=== PATIENT | female | born 1990 | race Caucasian/White ===

== ENCOUNTER 2018-01-02 19:37 | Emergency (ER) | payer SELFPAY ==
--- NOTE | 2018-01-02 19:43 | NUR.NOTE ---
Nursing Note: Patient decided to try and make it better at home.
== END 2018-01-02 19:43 ==
DX: Z53.21 Procedure and treatment not carried out due to patient leaving prior to being seen by health care provider (principal)

== ENCOUNTER 2018-01-27 17:55 | Observation (INO) | payer MEDICAID, SELFPAY ==
[2018-01-27 17:46] VITALS: BP 111/77; PULSE 103; RESP 18; TEMP 36.3; O2SAT 101
--- NOTE | 2018-01-27 18:11 | DI.CT_ITS ---
SYMPTOMS/DIAGNOSIS: RLQ ABD PAIN CT SCAN OF THE ABDOMEN AND PELVIS: CT scan of the abdomen and pelvis was performed following the uneventful administration of intravenous contrast material. There are no priors for comparison. In the right lung base there is a noncalcified 0.6 cm pulmonary nodule. The liver is normal in size. No hepatic mass is seen. The portal and superior mesenteric veins are patent. The gallbladder is negative. No biliary ductal dilatation is seen. The pancreas, spleen and adrenal glands are unremarkable. The kidneys show normal and symmetric enhancement. No solid renal mass, obstruction or calculus is seen. The urinary bladder is intact. Note is made of an intrauterine device in good position. The reproductive organs are otherwise unremarkable. The bowel shows no evidence of obstruction or inflammation. There is a normal retrocecal appendix present. There is a moderately large amount of retained stool throughout the colon. The abdominal aorta is of normal caliber. No significant adenopathy, free air or ascites is present. The bones are intact. IMPRESSION: 1. Moderately large amount of retained stool. 2. 0.6 cm noncalcified right pulmonary nodule. The finding is nonspecific follow up as clinically appropriate.
[2018-01-27 18:19] LABS: Abs Immature Grans 0.03 k/cumm (0.0-0.09); Absolute Basophil Count 0.01 k/cumm (0.0-0.2); Absolute Lymphocyte Count 3.12 k/cumm (1.2-3.4); Absolute Monocyte Count 0.74 k/cumm (0.11-0.7); Absolute Neutrophil Count 4.78 k/cumm (1.2-6.7); Basophils % 0.1; HCT 33.5 % (36.0-46.0); HGB 11.1 g/dL (12.0-15.5); Immature Grans % 0.3; Lymphocytes % 35.9; Mean Corp. HGB Concentration 33.1 g/dL (32.0-36.0); Mean Corpuscular Hemoglobin 27.7 pg (27.0-33.0); Mean Corpuscular Volume 83.5 fL (80-95); Mean Platelet Volume 8.5 fL (8.0-11.0); Monocytes % 8.5; Neutrophils % 55.2; Platelet Count 338 x1000/uL (130-400); RBC 4.01 m/cumm (4.00-5.20); RBC Distribution Width 15.8 % (11.7-14.6); White Blood Cell Count 8.68 k/cumm (4.4-10.8)
[2018-01-27] MEDS: Normal Saline 1,000 ML 1000 ML IV (18:23)
[2018-01-27 18:25] LABS: Bilirubin Negative (Negative); Blood Negative (Negative); Clarity Clear; Glucose Negative (Negative); Ketones Trace mg/dL (Negative); Leukocyte Esterase Trace (Negative); Nitrite Negative (Negative); Specific Gravity 1.025 (1.005-1.025); Urobilinogen 0.2 EU/dL (Up TO 0.2)
[2018-01-27 18:30] LABS: *AMPHETAMINES SCREEN URINE Negative (Negative); *BARBITURATES SCREEN URINE Negative (Negative); *BENZODIAZEPINES SCREEN URINE Negative (Negative); Cannabinoids THC Negative (Negative); Cocaine Screen,Urine Negative (Negative); METHADONE URINE SCREEN Negative (Negative); OPIATES URINE SCREEN Negative (Negative)
[2018-01-27 18:34] LABS: Tricyclic Antidepressants POSITIVE (Negative)
[2018-01-27 18:42] LABS: ALT 16 U/L (12-78); AST 15 U/L (15-37); Albumin 3.5 g/dL (3.4-5.0); Alkaline Phosphatase 89 U/L (46-116); Anion Gap 12.6 mmol/L (3-11); BUN 12 mg/dL (7-18); Bilirubin, Total 0.2 mg/dL (0.2-1.0); CO2 22.4 mmol/L (21.0-32.0); CREATININE 0.98 mg/dL (0.55-1.02); Calcium 8.9 mg/dL (8.5-10.1); Chloride 106 mmol/L (98-107); Glucose 93 mg/dL (70-100); Potassium 3.3 mmol/L (3.5-5.1); Sodium 141 mmol/L (136-145); TSH 3.44 uIU/mL (0.358-3.74); Total Protein 6.8 g/dL (6.4-8.2)
[2018-01-27 18:43] LABS: Epithelial Cells Many HPF (Negative); RBC 0-2 (0-2); WBC 0-2 HPF (0-5)
[2018-01-27 18:44] LABS: Bacteria Many HPF (Negative); C & S Indicated? No/Sq. Contamination; Casts Negative LPF (Negative); Crystals Negative HPF (Negative); Mucus Negative (Negative); Other Cells Rare Renal (Negative)
[2018-01-27] MEDS: Omnipaque 350 MG/ML 100 ML BTL IJ (19:26)
--- NOTE | 2018-01-27 19:50 | DI.VRAD_ITS ---
EXAM: CT Abdomen and Pelvis With Intravenous Contrast CLINICAL HISTORY: 27 years old, female; Pain; Abdominal pain; Localized; Right lower quadrant (rlq); Patient HX: Rlq abd pain TECHNIQUE: Axial computed tomography images of the abdomen and pelvis with intravenous contrast. Coronal and sagittal reformatted images were created and reviewed. COMPARISON: No relevant prior studies available. FINDINGS: Lung bases: Unremarkable. No mass. No consolidation. ABDOMEN: Liver: Unremarkable. No mass. Gallbladder and bile ducts: Unremarkable. No calcified stones. No ductal dilation. Pancreas: Unremarkable. No mass. No ductal dilation. Spleen: Unremarkable. No splenomegaly. Adrenals: Unremarkable. No mass. Kidneys and ureters: Unremarkable. No solid mass. No hydronephrosis. Stomach and bowel: Moderate fecal retention. No obstruction. No mucosal thickening. PELVIS: Appendix: No findings to suggest acute appendicitis. Bladder: Unremarkable. No mass. Reproductive: IUD in uterus. ABDOMEN and PELVIS: Intraperitoneal space: Unremarkable. No free air. No significant fluid collection. Bones/joints: No acute fracture. No dislocation. Soft tissues: Unremarkable. Vasculature: Unremarkable. No abdominal aortic aneurysm. Lymph nodes: Unremarkable. No enlarged lymph nodes. IMPRESSION: Moderate fecal retention. Dictated and Authenticated by: Rosendo Aparicio MD. Ordering:KAY PAGAN MD
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
[2018-01-27] MEDS: Ibuprofen 600 MG TAB PO (20:03)
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
[2018-01-27] MEDS: Milk of Magnesia 30 ML CUP PO (20:35)
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
--- NOTE | 2018-01-27 20:59 | NUR.NOTE ---
Nursing Note: 1899 - CPSO arrived to sit with patient who happens to be male. I talked with patient privately to verify that she is willing to have CPSO sit with her as long as he is outside room and not alone with her at time. Reassured patient that I am still available and will also be checking with her frequently to verify that she feels comfortable.
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
[2018-01-27] MEDS: Topiramate 100 MG TAB 125 MG PO (21:45)
[2018-01-27] MEDS: OXcarbazepine 150 MG TAB 450 MG PO (21:45)
[2018-01-27] MEDS: Benztropine 1 MG TAB PO (21:45)
[2018-01-27] MEDS: Verapamil 80 MG TAB 40 MG PO (21:45)
[2018-01-27] MEDS: Cyproheptadine 4 MG TAB 12 MG PO (21:46)
[2018-01-27] MEDS: traZODone 100 MG TAB 150 MG PO (21:46)
[2018-01-27] MEDS: Benzocaine 20% Gel 30 GM JAR MM (21:46)
[2018-01-27] MEDS: QUEtiapine 100 MG TAB PO (21:46)
[2018-01-27] MEDS: guanFACINE 1 MG TAB PO (21:46)
--- NOTE | 2018-01-27 21:55 | NUR.NOTE ---
Addendum entered by Ginny Romero 01/28/18 07:14: Pt resting with eyes closed in bed. No changes. CPSO 1:1 direct observation. Original Note: Addendum entered by Ginny Romero 01/28/18 05:59: No changes, pt remains resting with eyes closed. RR even and unlabored at a rate of approx 14, making own positional changes. CPSO remains 1:1 direct observation. Original Note: Addendum entered by Ginny Romero 01/28/18 05:05: pt remains resting in bed with eyes closed. CPSO remains 1:1 direct observation. Original Note: Addendum entered by Ginny Romero 01/28/18 02:19: CPSO remains at bedside 1:1 direct observation. Pt continues to rest in bed with eyes closed. RR even and unlabored. Original Note: Addendum entered by Ginny Romero 01/28/18 00:09: Pt continues to rest in bed with eyes closed, appears to be sleeping. Making own positional changes. RR even and unlabored at an approx rate of 12. Good color. CPSO remains 1:1 direct observation. Original Note: Addendum entered by Ginny Romero 01/27/18 22:59: Pt resting in bed with eyes closed, appears to be sleeping. Change of CPSO. Original Note: Nursing Note: Pt quiet and cooperative, in room resting on bed. Given night medication per orders, all taken willingly. CPSO continues 1:1 direct observation. Pt given warm blanket and had PO fluids replenished. Needs met at this time per pt report. Will continue to monitor. Has drawing crayons at bedside for use. Cell phone (black, flip) placed into pt's belongings as the pt's guardian states the cell phone use tends to escalate pt's behavior. Pt agrees to this willingly.
--- NOTE | 2018-01-28 07:23 | NUR.NOTE ---
Assumed care of patient at this time. Sitter remains at bedside, pt VSS, denies needs or distress at this time. Nursing Note:
--- NOTE | 2018-01-28 08:30 | NUR.NOTE ---
Ordered meal tray for patient at this time. Nursing Note:
--- NOTE | 2018-01-28 09:44 | PDOC.MHCN ---
Date of service: 01/28/18 Time of Service: 09:46 Mental Health Crisis Note Presenting Issue How did you arrive at the ED and why did you come: Patient initially arrived at the emergency department via [facility] for thoughts of suicide and acts of self harm (cutting). Precipitating Factors Patient states that she is still having suicidal ideation and thoughts of self harm. Disposition BEHAVIOR: Patient states that she is making a card for her fathers grave. She states that her father a year and five months ago. EYE CONTACT: Patient made intermittent eye contact with this tag writer. MOOD: Calm and cooperative AFFECT: Flat APPETITE: Good SLEEP(trouble falling/staying asleep: Good Plan Patient will remain at the hospital on a voluntary status until a bed becomes available at a mental health treatment facility. A referral was sent to [facility] yesterday but they state today that they are not taking any admissions. All other facilities are full at this time. Signature Clinician's Name/Title: Elayne Carpenter - [facility] Emergency Clinician
--- NOTE | 2018-01-28 09:55 | PDOC.MHCN_ITS ---
Date of service: 01/28/18 Time of Service: 09:46 Mental Health Crisis Note Presenting Issue How did you arrive at the ED and why did you come: Patient initially arrived at the emergency department via [facility] for thoughts of suicide and acts of self harm (cutting). Precipitating Factors Patient states that she is still having suicidal ideation and thoughts of self harm. Disposition BEHAVIOR: Patient states that she is making a card for her fathers grave. She states that her father a year and five months ago. EYE CONTACT: Patient made intermittent eye contact with this scientific technical writer. MOOD: Calm and cooperative AFFECT: Flat APPETITE: Good SLEEP(trouble falling/staying asleep: Good Plan Patient will remain at the hospital on a voluntary status until a bed becomes available at a mental health treatment facility. A referral was sent to [facility] yesterday but they state today that they are not taking any admissions. All other facilities are full at this time. Signature Clinician's Name/Title: Elayne Carpenter - [facility] Emergency Clinician
[2018-01-28] MEDS: Ondansetron O.D.T. 4 MG TABEF ×2 (10:09→17:01)
[2018-01-28] MEDS: traZODone 100 MG TAB 150 MG PO ×2 (11:43→21:18)
[2018-01-28] MEDS: OXcarbazepine 150 MG TAB 450 MG PO ×2 (11:43→20:33)
[2018-01-28] MEDS: SUMAtriptan 50 MG TAB 100 MG PO (11:43)
[2018-01-28] MEDS: Topiramate 100 MG TAB PO ×2 (11:43→20:32)
[2018-01-28] MEDS: Haloperidol 5 MG TAB PO (11:43)
[2018-01-28] MEDS: QUEtiapine 50 MG TAB 100 MG PO (11:43)
[2018-01-28] MEDS: Verapamil 80 MG TAB 40 MG PO (11:44)
--- NOTE | 2018-01-28 14:10 | CMPROGNOTE_ITS ---
- If Service Date Differs Date of service: 01/28/18 Time of Service: 14:08 Care Management Progress Note Care Management Progress Note Brief Narrative : Mary is being admitted to the Med/Surg unit while she awaits placement at a psychiatric facility. Mary has been appropriate in the emergency department. CM contacted Mary's guardian Candace whom states that the first choice of facility would be [facility] and second choice would be [facility] if there are options tomorrow. VOLUNTARY FOR INPATIENT PSYCHIATRIC STABILIZATION. Current behaviors: Mary has been cooperative and appropriate in all interactions since arriving at [facility] ; she has demonstrated appropriate coping and communication skills, has articulated her needs and concerns and is fully engaged during staff interactions. Huddle Participants: Nubia Archuleta, RN Field Education Coordinator, CARMELLA Churchill, and this CM. Time and Date: 01/28/18 @ 1400 Safety plan has been established with patient, and care team, to adhere to patient goals, identify restrictions based on behavioral status, address nutrition, and determine allowed personal belongings, tools for hygiene and personal care. Determine level of activity including ambulation, level of supervision, visitors, and determine privileges based on behaviors and level of engagement by pt. SAFETY PLAN: 1. Will remain on suicide precautions and in paper clothes. 2. Will remain in room under direct supervision of one-on-one staff at all times provided by CESAR, JAVY prison classification counselor. 3. May have paper cups, plates, finger foods as well as a metal spoon with which to eat meals. [facility] staff will be responsible for accounting of utensils after meals. Soft foods please as Mary recently had teeth removed 4. Follow [facility] Management of the Admitted Behavioral Health Patient policy. 5. Comfort bath system only. 6. No personal belongings 7. Visitors - Candace Romero (Guardian) 8. Activities - Mary will be provided crayons and paper as this is therapeutic for her. 9. TV privileges - Mary may watch TV and have remote. Placement: Elayne [facility], states that [facility], [facility], [facility], and [facility] have reported no beds this evening. [facility] is receptive to a referral which has been faxed. Patient is currently voluntarily at [facility] and seeking inpatient admission when a bed becomes available. [facility] Frontline Media Center Director School will continue seeking placement. Please contact the Field Consultant Finish Machine Tender ([phone]) and [facility] Media Center Director School ([phone]) for any needed changes in the Safety Plan. Safety plan has been provided to interdepartmental care team including Clinical Coordinator, Nursing Field Education Coordinator.
[2018-01-28 15:29] VITALS: BP 138/80; PULSE 88; RESP 18; TEMP 36.8; O2SAT 99
[2018-01-28 15:40] VITALS: BP 100/70; PULSE 88; RESP 18; TEMP 36.2; O2SAT 97
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
[2018-01-28] MEDS: Calcium Carbonate *TUMS* 500 MG CHEW PO (17:01)
[2018-01-28 17:24] VITALS: RESP 20; RESP 7; O2SAT 96
[2018-01-28] MEDS: Albuterol/Ipratropium 3 ML UPD VIAL UPD (17:24)
[2018-01-28] MEDS: Acetaminophen 325 MG TAB 650 MG PO (20:26)
[2018-01-28] MEDS: QUEtiapine 100 MG TAB PO (20:27)
[2018-01-28] MEDS: Docusate Sodium 100 MG CAP PO (20:28)
[2018-01-28] MEDS: Omega-3 Fatty Acids 1000 MG CAP PO (20:28)
[2018-01-28] MEDS: Topiramate 100 MG TAB 125 MG PO (20:33)
[2018-01-28] MEDS: Budesonide/Formoterol 80/4.5 6.9 GM 60 PUFF INH IH (20:34)
[2018-01-28] MEDS: Benzocaine 20% Gel 30 GM JAR MM ×2 (20:36→21:19)
[2018-01-28] MEDS: Cyproheptadine 4 MG TAB PO (21:19)
[2018-01-28] MEDS: Benztropine 1 MG TAB PO (21:19)
[2018-01-28] MEDS: traZODone 50 MG TAB 150 MG PO (22:14)
[2018-01-28] MEDS: Milk of Magnesia 30 ML CUP PO (22:26)
[2018-01-28 23:59] VITALS: RESP 16
[2018-01-29 00:16] VITALS: BP 106/68; PULSE 79; RESP 16; TEMP 36.6; O2SAT 94
[2018-01-29 03:12] VITALS: RESP 18
[2018-01-29 07:35] VITALS: BP 112/74; PULSE 72; RESP 20; TEMP 36.7; O2SAT 98
[2018-01-29 07:45] VITALS: O2SAT 95
[2018-01-29] MEDS: Budesonide/Formoterol 80/4.5 6.9 GM 60 PUFF INH IH ×2 (07:45→19:33)
[2018-01-29] MEDS: Haloperidol 5 MG TAB PO (09:07)
[2018-01-29] MEDS: Omega-3 Fatty Acids 1000 MG CAP PO ×2 (09:07→19:34)
[2018-01-29] MEDS: Verapamil 80 MG TAB 40 MG PO (09:07)
[2018-01-29] MEDS: Docusate Sodium 100 MG CAP PO ×2 (09:07→19:34)
[2018-01-29] MEDS: QUEtiapine 100 MG TAB PO ×2 (09:07→19:34)
[2018-01-29] MEDS: DULoxetine 30 MG CAP PO (09:07)
[2018-01-29] MEDS: OXcarbazepine 150 MG TAB 450 MG PO ×2 (09:07→19:33)
[2018-01-29] MEDS: guanFACINE 1 MG TAB 2 MG PO (09:07)
[2018-01-29] MEDS: Magnesium Oxide 400 MG TAB PO (09:07)
[2018-01-29] MEDS: Omeprazole 20 MG CAPCR PO (09:08)
[2018-01-29] MEDS: Calcium Carbonate *TUMS* 500 MG CHEW PO (09:43)
[2018-01-29] MEDS: Polyethylene Glycol 3350 17 GM PACKET PO (09:43)
[2018-01-29] MEDS: Nicotine 21 MG/24 HR PATCH TD (09:43)
--- NOTE | 2018-01-29 10:17 | PDOC.CMIN ---
- If Service Date Differs Date of service: 01/29/18 Time of Service: 10:17 Care Management Initial Assess REASON FOR HOSPITALIZATION:: Depression & Suicidal Ideation PAST MEDICAL HISTORY/PAST SURGICAL HISTORY:: Depression, Diabetes type 2. Per Guardian: Borderline Personality Disorder PREVIOUS FUNCTIONAL STATUS/SOCIAL/FAMILY SUPPORTS:: Mary resides at a staffed apartment in [place] which is staffed by the [facility]. Mary's father 1.5 years ago, her mother is living, however Mary does not have much of a relationship with her. Mary has a public guardian and a therapy team whom are her primary supports. CURRENT FUNCTIONAL STATUS:: Currently Mary is lying in bed this morning. She ambulates in her room throughout the day. ADVANCE DIRECTIVES:: None on file Has patient been provided with information about the portal?: No Did the patient sign up for the portal?: No CODE STATUS:: Full Code INSURANCE COVERAGE / FINANCIAL ISSUES:: Medicaid CURRENT HOME/COMMUNITY SERVICES/EQUIPMENT:: Currently Mary receives therapy services through [facility]. Mary receives therapy 1x/week, was seeing a somatic therapist in [place] which is about to restart, Receives AVE therapy which is planned to start daily on Monday, and has acupuncture 2x/week. PRIMARY CARE PHYSICIAN:: Dr. Coyle POTENTIAL DISCHARGE NEEDS:: Psychiatric facility placement. PATIENT/FAMILY EDUCATION NEEDS:: Review DC instructions, any limitations, and ongoing DC planning discussion. Discuss 'Ask Me Three' ANTICIPATED BARRIERS TO DISCHARGE:: None identified at this time. TRANSPORTATION:: Via gantry rigger PLAN:: [facility] is currently seeking placement at a psychiatric facility. As of yesterday 01/28/18 no facilities had beds. has a call out to [facility] in regards to placement search. Mary will remain at [facility] until psychiatric placement can be found.
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
--- NOTE | 2018-01-29 10:48 | INITIAL_ITS ---
- If Service Date Differs Date of service: 01/29/18 Time of Service: 10:17 Care Management Initial Assess REASON FOR HOSPITALIZATION:: Depression & Suicidal Ideation PAST MEDICAL HISTORY/PAST SURGICAL HISTORY:: Depression, Diabetes type 2. Per Guardian: Borderline Personality Disorder PREVIOUS FUNCTIONAL STATUS/SOCIAL/FAMILY SUPPORTS:: Mary resides at a staffed apartment in [place] which is staffed by the [facility]. Mary' s father 1.5 years ago, her mother is living, however Mary does not have much of a relationship with her. Mary has a public guardian and a therapy team whom are her primary supports. CURRENT FUNCTIONAL STATUS:: Currently Mary is lying in bed this morning. She ambulates in her room throughout the day. ADVANCE DIRECTIVES:: None on file Has patient been provided with information about the portal?: No Did the patient sign up for the portal?: No CODE STATUS:: Full Code INSURANCE COVERAGE / FINANCIAL ISSUES:: Medicaid CURRENT HOME/COMMUNITY SERVICES/EQUIPMENT:: Currently Mary receives therapy services through [facility]. Mary receives therapy 1x/week, was seeing a somatic therapist in [place] which is about to restart, Receives AVE therapy which is planned to start daily on Monday, and has acupuncture 2x/ week. PRIMARY CARE PHYSICIAN:: Dr. Coyle POTENTIAL DISCHARGE NEEDS:: Psychiatric facility placement. PATIENT/FAMILY EDUCATION NEEDS:: Review DC instructions, any limitations, and ongoing DC planning discussion. Discuss 'Ask Me Three' ANTICIPATED BARRIERS TO DISCHARGE:: None identified at this time. TRANSPORTATION:: Via production control expert PLAN:: [facility] is currently seeking placement at a psychiatric facility. As of yesterday 01/28/18 no facilities had beds. has a call out to [facility] in regards to placement search. Mary will remain at [facility] until psychiatric placement can be found.
--- NOTE | 2018-01-29 12:31 | PDOC.CMPRO ---
- If Service Date Differs Date of service: 01/29/18 Time of Service: 12:31 Care Management Progress Note Brief Narrative : Mary is admitted to the Med/Surg unit while she awaits placement at a psychiatric facility. Per CARMELLA Churchill, Mary seems much more lethargic today. Ponce, pathology secretary, obtained Mary's home medication list which the provider is reviewing. CM spoke with Elayne [facility], whom states that she will be in this afternoon to evaluate patient. VOLUNTARY FOR INPATIENT PSYCHIATRIC STABILIZATION. Current behaviors: Mary has been cooperative and appropriate in all interactions since arriving at [facility]; she has demonstrated appropriate coping and communication skills, has articulated her needs and concerns and is fully engaged during staff interactions. Huddle Participants: CARMELLA Cuhrchill, CARMELLA Arellano CC, and this MELANY. Time and Date: 01/29/18 @ 1230 Safety plan has been established with patient, and care team, to adhere to patient goals, identify restrictions based on behavioral status, address nutrition, and determine allowed personal belongings, tools for hygiene and personal care. Determine level of activity including ambulation, level of supervision, visitors, and determine privileges based on behaviors and level of engagement by pt. SAFETY PLAN: 1. Will remain on suicide precautions and in paper clothes. 2. Will remain in room under direct supervision of one-on-one staff at all times provided by JAVY GUERRERO rubbish collector. 3. May have paper cups, plates, finger foods as well as a metal spoon with which to eat meals. [facility] staff will be responsible for accounting of utensils after meals. Soft foods please as Mary recently had teeth removed 4. Follow [facility] Management of the Admitted Behavioral Health Patient policy. 5. Comfort bath system only. 6. No personal belongings 7. Visitors - Candace Romero (Guardian) 8. Activities - Mary will be provided crayons and paper as this is therapeutic for her. 9. TV privileges - Mary may watch TV and have remote. Placement: CM has faxed referrals to [facility] Patient is currently voluntarily at [facility] and seeking inpatient admission when a bed becomes available. [facility] Frontline Hoop Expander will continue seeking placement. Please contact the Copy Director Human Resource Consultant ([phone]) and [facility] Hoop Expander ([phone]) for any needed changes in the Safety Plan. Safety plan has been provided to interdepartmental care team including Clinical Coordinator, Nursing Digital Media Manager.
--- NOTE | 2018-01-29 12:35 | PHARADMIT ---
Admission Pharmacy Clinical Review Suicidal Plan Code Status Full Code Current Weight Wgt- 95.3 kg Renally Cleared and Narrow Therapeutic Index Meds CrCl~88.5 mL/min Meds-OK QTc Value / Action Taken NA BP Control, Fever BP- 112/74 Tmax- 36.7C Electrolytes reviewed Na-141 K+3.3 DVT Prophylaxis Heparin, Opiate Usage / Scheduled Bowel Regimen Ordered No Yes Plt/SCr for Heparin / Enoxaparin Plts-338 SCr-0.98 INR for Warfarin H/H stable, WBC/Bands H&H- 11.1/33.5 WBC- 8.68 Antibiotic appropriateness NONE Cultures and Sensitivities NONE Surgical ABX d/c within 24 hr NA DM control / Insulin Dosing BG-93 Aspart Heart Failure (Check EF%) (AIDEN's, B-Block, Diuretics) NONE IV to PO Switch No Home Meds Reviewed Yes (PatOwn- Clozapine, Riboflavin ) Home Meds Not Ordered Metformin, EpiPen, Flonase, XOpenex HFA, MagOx, Comments Urine screen + TCA
--- NOTE | 2018-01-29 14:21 | CMPROGNOTE_ITS ---
- If Service Date Differs Date of service: 01/29/18 Time of Service: 12:31 Care Management Progress Note Brief Narrative : Mary is admitted to the Med/Surg unit while she awaits placement at a psychiatric facility. Per CARMELLA Churchill, Mary seems much more lethargic today. Ponce, maintenance man, obtained Mary's home medication list which the provider is reviewing. CM spoke with Elayne [facility], whom states that she will be in this afternoon to evaluate patient. VOLUNTARY FOR INPATIENT PSYCHIATRIC STABILIZATION. Current behaviors: Mary has been cooperative and appropriate in all interactions since arriving at [facility] ; she has demonstrated appropriate coping and communication skills, has articulated her needs and concerns and is fully engaged during staff interactions. Huddle Participants: CARMELLA Churchill, CARMELLA Arellano CC, and this MELANY. Time and Date: @ 1230 Safety plan has been established with patient, and care team, to adhere to patient goals, identify restrictions based on behavioral status, address nutrition, and determine allowed personal belongings, tools for hygiene and personal care. Determine level of activity including ambulation, level of supervision, visitors, and determine privileges based on behaviors and level of engagement by pt. SAFETY PLAN: 1. Will remain on suicide precautions and in paper clothes. 2. Will remain in room under direct supervision of one-on-one staff at all times provided by JAVY GUERRERO asphalt plant worker. 3. May have paper cups, plates, finger foods as well as a metal spoon with which to eat meals. [facility] staff will be responsible for accounting of utensils after meals. Soft foods please as Mary recently had teeth removed 4. Follow [facility] Management of the Admitted Behavioral Health Patient policy. 5. Comfort bath system only. 6. No personal belongings 7. Visitors - Candace Romero (Guardian) 8. Activities - Mary will be provided crayons and paper as this is therapeutic for her. 9. TV privileges - Mary may watch TV and have remote. Placement: CM has faxed referrals to [facility] [place] Patient is currently voluntarily at [facility] and seeking inpatient admission when a bed becomes available. [facility] Frontline Project Geophysicist will continue seeking placement. Please contact the Conservation Officer Screw Down ([phone]) and [facility] Project Geophysicist ([phone]) for any needed changes in the Safety Plan. Safety plan has been provided to interdepartmental care team including Clinical Coordinator, Nursing Medical Research Associate.
[2018-01-29] MEDS: Acetaminophen 325 MG TAB 650 MG PO ×2 (14:30→19:34)
--- NOTE | 2018-01-29 15:05 | W.INMHPGNOTE ---
Date of service: 01/29/18 Time of Service: 15:05 Mental Health Crisis Note Presenting Issue How did you arrive at the ED and why did you come: Patient initially arrived at the Emergency Department via [place] for thoughts of suicide and thoughts of self harm. Precipitating Factors Patient states that there has been no change to her thoughts. She states that she still has suicidal ideation and thoughts of self harm (cutting). Disposition BEHAVIOR: When this journalists and other writers arrived the patient was standing in the doorway with a distant blank stare EYE CONTACT: intermittent MOOD: Calm and cooperative AFFECT: Flat APPETITE: Good SLEEP(trouble falling/staying asleep: Patient states that she has been more tired than normal and has been sleeping more throughout the day. Plan Patient will remain at the hospital on a voluntary status until accepted into an appropriate mental health treatment facility. Referrals sent to [facility] [place] and [facility] [place] today. Signature Clinician's Name/Title: Elayne Carpenter - [facility] Emergency Clinician
--- NOTE | 2018-01-29 15:13 | MHPN_ITS ---
Date of service: 01/29/18 Time of Service: 15:05 Mental Health Crisis Note Presenting Issue How did you arrive at the ED and why did you come: Patient initially arrived at the Emergency Department via [place] for thoughts of suicide and thoughts of self harm. Precipitating Factors Patient states that there has been no change to her thoughts. She states that she still has suicidal ideation and thoughts of self harm (cutting). Disposition BEHAVIOR: When this fiction and nonfiction prose writer arrived the patient was standing in the doorway with a distant blank stare EYE CONTACT: intermittent MOOD: Calm and cooperative AFFECT: Flat APPETITE: Good SLEEP(trouble falling/staying asleep: Patient states that she has been more tired than normal and has been sleeping more throughout the day. Plan Patient will remain at the hospital on a voluntary status until accepted into an appropriate mental health treatment facility. Referrals sent to [facility] [place] [place] and [facility] [place] today. Signature Clinician's Name/Title: Elayne Carpenter - [facility] Emergency Clinician
[2018-01-29 15:51] VITALS: BP 113/74; PULSE 95; RESP 20; TEMP 36.7; O2SAT 96
[2018-01-29] MEDS: Benzocaine 20% Gel 30 GM JAR MM (18:02)
[2018-01-29] MEDS: Milk of Magnesia 30 ML CUP PO (18:07)
[2018-01-29] MEDS: Albuterol/Ipratropium 3 ML UPD VIAL UPD (18:14)
[2018-01-29] MEDS: Topiramate 25 MG TAB PO (19:33)
[2018-01-29] MEDS: Topiramate 100 MG TAB PO (19:33)
[2018-01-29] MEDS: Cyproheptadine 4 MG TAB 12 MG PO (22:32)
[2018-01-29] MEDS: Benztropine 1 MG TAB PO (22:33)
[2018-01-30 06:40] VITALS: BP 97/76; PULSE 87; RESP 18; TEMP 37; O2SAT 94
[2018-01-30 07:25] VITALS: BP 104/76; PULSE 91; RESP 18; TEMP 37; O2SAT 93
[2018-01-30] MEDS: Polyethylene Glycol 3350 17 GM PACKET PO (08:48)
[2018-01-30] MEDS: Nicotine 21 MG/24 HR PATCH TD (08:49)
[2018-01-30] MEDS: Omeprazole 20 MG CAPCR PO (08:51)
[2018-01-30] MEDS: guanFACINE 1 MG TAB 2 MG PO (08:52)
[2018-01-30] MEDS: OXcarbazepine 150 MG TAB 450 MG PO (08:53)
[2018-01-30] MEDS: DULoxetine 30 MG CAP PO (08:54)
[2018-01-30] MEDS: Topiramate 100 MG TAB PO (08:54)
[2018-01-30] MEDS: Topiramate 25 MG TAB PO (08:54)
[2018-01-30] MEDS: Magnesium Oxide 400 MG TAB PO (08:55)
[2018-01-30] MEDS: Docusate Sodium 100 MG CAP PO (08:55)
[2018-01-30] MEDS: QUEtiapine 100 MG TAB PO (08:55)
[2018-01-30] MEDS: Haloperidol 5 MG TAB PO (08:55)
[2018-01-30] MEDS: Omega-3 Fatty Acids 1000 MG CAP PO (08:56)
[2018-01-30] MEDS: Budesonide/Formoterol 80/4.5 6.9 GM 60 PUFF INH IH (09:47)
[2018-01-30 09:51] VITALS: BP 115/78; PULSE 103; TEMP 36.6
[2018-01-30] MEDS: Verapamil 80 MG TAB 40 MG PO (09:52)
[2018-01-30] MEDS: Insulin Aspart 300 UNITS/3 ML PEN SC (12:53)
[2018-01-30 13:37] VITALS: PULSE 90; RESP 18; O2SAT 95
[2018-01-30] MEDS: Albuterol/Ipratropium 3 ML UPD VIAL UPD (13:37)
[2018-01-30] MEDS: Acetaminophen 325 MG TAB 650 MG PO (16:06)
[2018-01-30] MEDS: Benzocaine 20% Gel 30 GM JAR MM (16:07)
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
[2018-01-30] MEDS: Potassium Chloride 20 MEQ TABCR 40 MEQ PO (17:10)
--- NOTE | 2018-01-30 17:45 | PDOC.CMDIS ---
- If Service Date Differs Date of service: 01/30/18 Time of Service: 17:46 LACE Index Scoring Tool - Questions: Length of Stay (in days): 3 Acuity (Admit via E.D.?): Yes E.D. Visits: 2 - Answers: Total Score: 8 Risk of Readmission: Low Risk Care Management Discharge Reason for Hospitalization: Depression & Suicidal Ideation Discharge Plan: Mary is being discharged to [facility] [place]. CM contacted the Guardian Clarita Romero and provided update including contact information for . CM contacted admissions at and provided guardian's fax and contact information. Mary is looking forward to transfer she knows well and has been there in the past. CM coordinated transportation via [employer]. CM will fax CM notes to to provide update and contacts for Mary's support team. Accepting MD at is . CM faxed discharge information to guardian. Patient/Family Education Needs: Transfer education and mode of transportation. Services Needed at Discharge: Psychiatric Facility (Transported to [facility] [place] ) - MH Services (Omit if N/A) Current MH Services: [facility] Referred to Internal [facility] (ED embedded) family service caseworker?: Yes
== END 2018-01-30 17:28 | disposition short-term general hospital (02) ==
LOC: ER 01-28 11:42 → MS 01-28 15:38
PROVIDERS: Nurse Practitioner Family; Admitting Provider Internal Medicine; Emergency Provider Student in an Organized Health Care Education/Training Program; PCP Internal Medicine; Visit Provider Internal Medicine
DX: F32.9 Major depressive disorder, single episode, unspecified (principal); R45.851 Suicidal ideations; E11.9 Type 2 diabetes mellitus without complications; E66.9 Obesity, unspecified; K59.00 Constipation, unspecified; Z91.410 Personal history of adult physical and sexual abuse; F43.10 Post-traumatic stress disorder, unspecified; R44.1 Visual hallucinations; F17.210 Nicotine dependence, cigarettes, uncomplicated
CPT/HCPCS: 36415; 80053; 80307; 81025; 82947; 94640; 96361; 99223; 99233; 99239; 99285; 74177; 81003; 81015; 84443; 85025; 99217; 99220; 99284; G0378; J1644; J3490; J7620

== ENCOUNTER 2018-02-20 20:25 | Emergency (ER) | payer MEDICAID, SELFPAY ==
[2018-02-20 20:28] VITALS: BP 115/68; PULSE 96; RESP 20; TEMP 36.3; O2SAT 100
--- NOTE | 2018-02-20 20:48 | W.ED.GENAD ---
Discharge Plan Disposition Patient Disposition: [facility] Condition: Stable Discharge Details Chief Complaint: PsychEval Clinical Impression: Mood disorder, Depression with suicidal ideation Reason For Visit: JOANA Primary Care Provider: Judie Coyle ED Provider: Rosalinda Willis Home Meds and New Rx's Prescriptions: No Action clozapine [Clozaril] 100 mg Tablet 175 mg PO HS RF: 0 clozapine [Clozaril] 100 mg Tablet 100 mg PO TID RF: 0 riboflavin (vitamin B2) [Vitamin B-2] 100 mg Tablet 400 mg PO DAILY RF: 0 sumatriptan succinate 100 mg Tablet 100 mg PO ONCE PRNRF: 0 metformin [Glucophage] 850 mg Tablet 850 mg PO BID RF: 0 oxcarbazepine [Trileptal] 300 mg Tablet 450 mg PO BID RF: 0 quetiapine [Seroquel] 100 mg Tablet 100 mg PO BID RF: 0 cyproheptadine 4 mg Tablet 4 mg PO HS RF: 0 trazodone 150 mg Tablet 150 mg PO DAILY RF: 0 guanfacine 1 mg Tablet 2 mg PO DAILY RF: 0 omeprazole 20 mg Capsule,Delayed Release(Dr/Ec) 20 mg PO DAILY RF: 0 magnesium 250 mg Tablet 400 mg PO DAILY RF: 0 epinephrine [EpiPen 2-Evans] 0.3 mg/0.3 mL Auto-Injector RF: 0 ondansetron 4 mg Tablet,Disintegrating 4 mg PO TID PRNRF: 0 topiramate [Topamax] 100 mg Tablet 125 mg PO BID RF: 0 fluticasone 50 mcg/actuation [place],Suspension 1 spray INTRANASAL DAILY RF: 0 docusate sodium 100 mg Tablet 100 mg PO BID RF: 0 duloxetine [Cymbalta] 30 mg Capsule,Delayed Release(Dr/Ec) 30 mg PO DAILY RF: 0 budesonide-formoterol [Symbicort] 80-4.5 mcg/actuation Hfa Aerosol Inhaler 2 puff INHALATION BID RF: 0 cholecalciferol (vitamin D3) [Vitamin D3] 5,000 unit Tablet 5,000 unit PO DAILY RF: 0 omega 4-ado-lcw-fish oil [Fish Oil] 1,000 mg (120 mg-180 mg) Capsule 1,000 mg PO BID RF: 0 acetaminophen [Tylenol] 325 mg Tablet 650 mg PO Q4H PRN PRNQty: 0 RF: 0 magnesium hydroxide [Milk of Magnesia] 400 mg/5 mL Suspension 30 ml PO DAILY PRN PRNQty: 0 RF: 0 calcium carbonate 200 mg calcium (500 mg) Tablet,Chewable 500 mg PO QID PRN PRNQty: 0 RF: 0 nicotine 21 mg/24 hr Patch 24 Hour 21 mg Transdermal DAILY PRN PRNQty: 0 RF: 0 benzocaine [HurriCaine] 20 % Gel Mucous Membrane Q4H PRN PRNQty: 0 RF: 0 levalbuterol tartrate [Xopenex HFA] 45 mcg/actuation Hfa Aerosol Inhaler 1 puff INHALATION Q6H PRN (Reason: shortness of breath or wheezing) Qty: 0 RF: 0 polyethylene glycol 3350 [Miralax] 17 gram powder in packet 17 gm PO DAILY PRN (Reason: constipation) Qty: 1 RF: 0 bupropion HCl [Wellbutrin SR] 150 mg Tablet Sustained-Release 12 Hr 150 mg PO DAILY RF: 0 doxycycline hyclate 100 mg Capsule 100 mg PO BID RF: 0 sumatriptan succinate [Imitrex] 100 mg Tablet 100 mg PO ONCE PRNRF: 0 meloxicam 7.5 mg Tablet 1 dose PO DAILY PRNRF: 0 bisacodyl 5 mg Tablet,Delayed Release (Dr/Ec) 10 mg PO DAILY RF: 0 Medical Decision Making <Richard Marcano MD - Last Filed: 02/21/18 05:56> 27-year-old female with chronic mental health problems presents via EMS after becoming suicidal and playing in traffic. She states that she has worsening mood disruption around the time of the holidays as it reminds her of the of her father. She states that medically she has been well with the exception of some persistent burning in itching discomfort in her vaginal area since being treated for an infection . A medical screening examination performed including chaperoned vaginal exam. She has evidence of candidal vaginitis. She is taking Doxycycline and presumptively was treated for PID. Records requested from [facility] as the patient was admitted there at the end of January. One-to-one sitter ordered Screening laboratories obtained with urinalysis. Patient given fluconazole 100 mg p.o. x1 for yeast infection. Patient medically stable for further evaluation by psychiatry. Patient's daily medications ordered, Clozaril unavailable and will use patient's own. She is taking PO without difficulty. Patient awaits voluntary placement to inpatient facility. She has tentative bed placement at [facility] and is awaiting transfer in the morning hours of February 21. Will sign out to Dr Willis pending final disposition. Lab Data Lab results reviewed: Yes I reviewed the patient's lab results. Laboratory Results - last 24 hr 02/20/18 02/20/18 02/20/18 20:45 20:45 20:47 WBC RBC Hgb Hct MCV MCH MCHC RDW Plt Count MPV Immature Gran % Neutrophils % Lymphocytes % Monocytes % Eosinophils % Basophils % Absolute Neutrophils Absolute Lymphocytes Absolute Monocytes Absolute Eosinophils Absolute Basophils Sodium 142 Potassium 3.4 L Chloride 108 H Carbon Dioxide 21.1 Anion Gap 12.9 H BUN 11 Creatinine 0.93 Estimated GFR/1.73 m2 >= 60.00 Glucose 91 Calcium 9.1 Total Bilirubin 0.2 AST 7 L ALT 17 Alkaline Phosphatase 89 Total Protein 7.5 Albumin 3.9 Urine Color Yellow Urine Clarity Clear Urine pH 6.0 Ur Specific [place] >= 1.030 H Urine Protein Trace H Urine Ketones 15 H Urine Blood Negative Urine Nitrite Negative Urine Bilirubin Small H Urine Urobilinogen 0.2 Ur Leukocyte Esterase Negative Urine RBC Negative Urine WBC Negative Ur Epithelial Cells Many Urine Crystals Mod calcium oxalate Urine Bacteria Few Urine Casts Negative Urine Mucus Moderate Ur Culture Indicated? No Urine Glucose 100 Urine Opiates Screen Negative Urine Methadone Screen Negative Ur Barbiturates Screen Negative Ur Tricyclics Screen Positive Clozapine Clozapine &Norclozapine Norclozapine Ur Amphetamines Screen Negative U Benzodiazepines Scrn Negative Urine Cocaine Screen Negative Ur THC Screen Negative Ethyl Alcohol < 3.0 02/20/18 02/20/18 20:47 21:07 WBC 8.77 RBC 4.15 Hgb 11.5 L Hct 35.1 L MCV 84.6 MCH 27.7 MCHC 32.8 RDW 17.1 H Plt Count 301 MPV 8.8 Immature Gran % 0.6 Neutrophils % 59.0 Lymphocytes % 33.0 Monocytes % 7.4 Eosinophils % 0.0 Basophils % 0.0 Absolute Neutrophils 5.18 Absolute Lymphocytes 2.89 Absolute Monocytes 0.65 Absolute Eosinophils 0.00 Absolute Basophils 0.00 Sodium Potassium Chloride Carbon Dioxide Anion Gap BUN Creatinine Estimated GFR/1.73 m2 Glucose Calcium Total Bilirubin AST ALT Alkaline Phosphatase Total Protein Albumin Urine Color Urine Clarity Urine pH Ur Specific [place] Urine Protein Urine Ketones Urine Blood Urine Nitrite Urine Bilirubin Urine Urobilinogen Ur Leukocyte Esterase Urine RBC Urine WBC Ur Epithelial Cells Urine Crystals Urine Bacteria Urine Casts Urine Mucus Ur Culture Indicated? Urine Glucose Urine Opiates Screen Urine Methadone Screen Ur Barbiturates Screen Ur Tricyclics Screen Clozapine Cancelled Clozapine &Norclozapine Cancelled Norclozapine Cancelled Ur Amphetamines Screen U Benzodiazepines Scrn Urine Cocaine Screen Ur THC Screen Ethyl Alcohol <Rosalinda Willis DO - Last Filed: 02/21/18 17:58> Please see Dr. Marcano's note for initial presentation, exam and plan. Pt is a 27yo F w/ a h/o depression who presents after becoming suicidal and playing in traffic. She is voluntary and was medically cleared. She was recently treated for possible PID and is still taking doxycycline of which was continued here along with her regular meds. She was also given clotrimazole cream here for a candidal vaginitis. GC/Chlamydia cultures done on this ED visit and pending. No acute events overnight. Plan upon endorsement was that pt has a bed at [facility] and waiting for doc to doc report at 8am. 0830 -- D/w [facility] - accepting physician Dr. Cheung. 11am -- Cheesemaker taking to pt to [facility]. Vitals within normal limits. HPI <Richard Marcano MD - Last Filed: 02/21/18 05:56> General Mode of arrival: EMS. Date/Time Provider Initiated Documentation: 02/20/18 20:55. Limitations to Documentation: no limitations. Information obtained by: patient and EMS. History of Present Illness 27 year old F presents to the emergency department with the chief complaint of Mental health crisis, suicidal, described as severe, Patient started experiencing this hour(s) No relieving factors improve symptom(s), Other factors that worsen symptoms . Patient notes other (Complains of burning and itching vaginal discomfort). HPI Narrative: 27-year-old female presents from the [facility] where she has been staying with a home provider since being released from [facility]. She states to me that her father at this time of year and the holidays are hard for me. She states that she became suicidal with thoughts of being run over by a car was standing in traffic. EMS was called, patient stated that she felt unsafe and was transported to the hospital. States to me that while [place] [facility] she was discontinued on her Haldol. States when she was recently treated for a vaginal infection and that she has persistent burning and itching. No other medical complaints Related Data Home Medications Medication Instructions Recorded Confirmed budesonide-formoterol [Symbicort] 2 puff INHALATION BID 01/27/18 02/20/18 cholecalciferol (vitamin D3) 5,000 unit PO DAILY 01/27/18 02/20/18 [Vitamin D3] clozapine [Clozaril] 100 mg PO TID 01/27/18 02/20/18 clozapine [Clozaril] 175 mg PO HS 01/27/18 02/20/18 cyproheptadine 4 mg PO HS 01/27/18 02/20/18 docusate sodium 100 mg PO BID 01/27/18 02/20/18 duloxetine [Cymbalta] 30 mg PO DAILY 01/27/18 02/20/18 epinephrine [EpiPen 2-Evans] 01/27/18 fluticasone 1 spray INTRANASAL DAILY 01/27/18 02/20/18 guanfacine 2 mg PO DAILY 01/27/18 02/20/18 magnesium 400 mg PO DAILY 01/27/18 02/20/18 metformin [Glucophage] 850 mg PO BID 01/27/18 02/20/18 omega 3-ecd-ehe-fish oil [Fish Oil] 1,000 mg PO BID 01/27/18 02/20/18 omeprazole 20 mg PO DAILY 01/27/18 02/20/18 ondansetron 4 mg PO TID PRN 01/27/18 02/20/18 oxcarbazepine [Trileptal] 450 mg PO BID 01/27/18 02/20/18 quetiapine [Seroquel] 100 mg PO BID 01/27/18 02/20/18 riboflavin (vitamin B2) [Vitamin 400 mg PO DAILY 01/27/18 02/20/18 B-2] sumatriptan succinate 100 mg PO ONCE PRN 01/27/18 02/20/18 topiramate [Topamax] 125 mg PO BID 01/27/18 02/20/18 trazodone 150 mg PO DAILY 01/27/18 02/20/18 acetaminophen [Tylenol] 650 mg PO Q4H PRN PRN #0 tab 01/30/18 02/20/18 benzocaine [HurriCaine] 0 g MUCOUS MEMBRANE Q4H PRN PRN #0 01/30/18 02/20/18 g calcium carbonate 500 mg PO QID PRN PRN #0 tab 01/30/18 02/20/18 levalbuterol tartrate [Xopenex HFA] 1 puff INHALATION Q6H PRN #0 g 01/30/18 02/20/18 magnesium hydroxide [Milk of 30 ml PO DAILY PRN PRN #0 ml 01/30/18 02/20/18 Magnesia] nicotine 21 mg TRANSDERMAL DAILY PRN PRN #0 01/30/18 02/20/18 ea polyethylene glycol 3350 [Miralax] 17 gm PO DAILY PRN #1 each 01/30/18 02/20/18 bisacodyl 10 mg PO DAILY 02/20/18 02/20/18 bupropion HCl [Wellbutrin SR] 150 mg PO DAILY 02/20/18 02/20/18 doxycycline hyclate 100 mg PO BID 02/20/18 02/20/18 meloxicam 1 dose PO DAILY PRN 02/20/18 02/20/18 sumatriptan succinate [Imitrex] 100 mg PO ONCE PRN 02/20/18 02/20/18 Previous Rx's Medication Instructions Recorded acetaminophen [Tylenol] 650 mg PO Q4H PRN PRN #0 tab 01/30/18 benzocaine [HurriCaine] 0 g MUCOUS MEMBRANE Q4H PRN PRN #0 01/30/18 g calcium carbonate 500 mg PO QID PRN PRN #0 tab 01/30/18 levalbuterol tartrate [Xopenex HFA] 1 puff INHALATION Q6H PRN #0 g 01/30/18 magnesium hydroxide [Milk of 30 ml PO DAILY PRN PRN #0 ml 01/30/18 Magnesia] nicotine 21 mg TRANSDERMAL DAILY PRN PRN #0 01/30/18 ea polyethylene glycol 3350 [Miralax] 17 gm PO DAILY PRN #1 each 01/30/18 Allergies Allergy/AdvReac Type Severity Reaction Status Date / Time bee pollen AdvReac Unverified 01/27/18 17:49 bee venom protein (honey bee) AdvReac Unverified 01/27/18 17:49 General Stated Complaint: PsychEval ISH: 2 Review of Systems <Richard Marcano MD - Last Filed: 02/21/18 05:56> Review of Systems 8 systems reviewed and otherwise - Exam <Richard Marcano MD - Last Filed: 02/21/18 05:56> Narrative Exam Narrative: GEN: awake, alert, oriented 3. Pleasant, well groomed, interactive. HEAD: Normocephalic, atraumatic ENT: Mucous membranes moist, oropharynx unremarkable, External ear exam unremarkable EYES: PERRL, EOMI NECK: Full ROM, no KOBE, no menigismus CHEST/RESP: Nontender, clear to auscultation bilateral, no wheeze/rhonchi/rales CARDIOVASCULAR: RRR, no murmur, rub amrit. 2+ Rad pulse bilateral ABDOMEN: Soft, nontender, no mass. +Bowel sounds. The vaginal introitus has beefy red erythema and white discharge. No tenderness. No asymmetry. Speculum exam unremarkable EXT: Full ROM, no edema, no rash Neuro: Grossly normal neurologic exam, conversant, interactive. Psych: Speech fluent, thoughts congruent, affect flat, voices and suicidal thoughts without plan Course <Richard Marcano MD - Last Filed: 02/21/18 05:56> Vital Signs Temperature 36.3 C L 02/20/18 20:28 Pulse 96 H 02/20/18 20:28 Respiratory Rate 20 02/20/18 20:28 Blood Pressure 115/68 02/20/18 20:28 Pulse Oximetry 100 02/20/18 20:28 Temperature 36.3 C L 02/20/18 20:28 Temperature Source Skin 02/20/18 20:28 Pulse 96 H 02/20/18 20:28 Respiratory Rate 20 02/20/18 20:28 Blood Pressure 115/68 02/20/18 20:28 Blood Pressure Position Sitting 02/20/18 20:28 Pulse Oximetry 100 02/20/18 20:28 Comment 02/20/18 20:28 Sign Out <Richard Marcano MD - Last Filed: 02/21/18 05:56> Sign Out Data: Sign Out Comment: Accepted to [facility], Doc-Doc call after 8am Last updated by Richard Marcano MD at 02/21/18 07:41
--- NOTE | 2018-02-20 20:55 | ED.GENADUL_ITS ---
Discharge Plan Disposition Patient [facility] Condition: Stable Discharge Details Chief Complaint: PsychEval Clinical Impression: Mood disorder, Depression with suicidal ideation Reason For Visit: JOANA Primary Care Provider: Judie Coyle ED Provider: Rosalinda Willis Home Meds and New Rx's Prescriptions: No Action clozapine [Clozaril] 100 mg Tablet 175 mg PO HS RF: 0 clozapine [Clozaril] 100 mg Tablet 100 mg PO TID RF: 0 riboflavin (vitamin B2) [Vitamin B-2] 100 mg Tablet 400 mg PO DAILY RF: 0 sumatriptan succinate 100 mg Tablet 100 mg PO ONCE PRNRF: 0 metformin [Glucophage] 850 mg Tablet 850 mg PO BID RF: 0 oxcarbazepine [Trileptal] 300 mg Tablet 450 mg PO BID RF: 0 quetiapine [Seroquel] 100 mg Tablet 100 mg PO BID RF: 0 cyproheptadine 4 mg Tablet 4 mg PO HS RF: 0 trazodone 150 mg Tablet 150 mg PO DAILY RF: 0 guanfacine 1 mg Tablet 2 mg PO DAILY RF: 0 omeprazole 20 mg Capsule,Delayed Release(Dr/Ec) 20 mg PO DAILY RF: 0 magnesium 250 mg Tablet 400 mg PO DAILY RF: 0 epinephrine [EpiPen 2-Evans] 0.3 mg/0.3 mL Auto-Injector RF: 0 ondansetron 4 mg Tablet,Disintegrating 4 mg PO TID PRNRF: 0 topiramate [Topamax] 100 mg Tablet 125 mg PO BID RF: 0 fluticasone 50 mcg/actuation [place],Suspension 1 spray INTRANASAL DAILY RF: 0 docusate sodium 100 mg Tablet 100 mg PO BID RF: 0 duloxetine [Cymbalta] 30 mg Capsule,Delayed Release(Dr/Ec) 30 mg PO DAILY RF: 0 budesonide-formoterol [Symbicort] 80-4.5 mcg/actuation Hfa Aerosol Inhaler 2 puff INHALATION BID RF: 0 cholecalciferol (vitamin D3) [Vitamin D3] 5,000 unit Tablet 5,000 unit PO DAILY RF: 0 omega 5-vhr-yic-fish oil [Fish Oil] 1,000 mg (120 mg-180 mg) Capsule 1,000 mg PO BID RF: 0 acetaminophen [Tylenol] 325 mg Tablet 650 mg PO Q4H PRN PRNQty: 0 RF: 0 magnesium hydroxide [Milk of Magnesia] 400 mg/5 mL Suspension 30 ml PO DAILY PRN PRNQty: 0 RF: 0 calcium carbonate 200 mg calcium (500 mg) Tablet,Chewable 500 mg PO QID PRN PRNQty: 0 RF: 0 nicotine 21 mg/24 hr Patch 24 Hour 21 mg Transdermal DAILY PRN PRNQty: 0 RF: 0 benzocaine [HurriCaine] 20 % Gel Mucous Membrane Q4H PRN PRNQty: 0 RF: 0 levalbuterol tartrate [Xopenex HFA] 45 mcg/actuation Hfa Aerosol Inhaler 1 puff INHALATION Q6H PRN (Reason: shortness of breath or wheezing) Qty: 0 RF : 0 polyethylene glycol 3350 [Miralax] 17 gram powder in packet 17 gm PO DAILY PRN (Reason: constipation) Qty: 1 RF: 0 bupropion HCl [Wellbutrin SR] 150 mg Tablet Sustained-Release 12 Hr 150 mg PO DAILY RF: 0 doxycycline hyclate 100 mg Capsule 100 mg PO BID RF: 0 sumatriptan succinate [Imitrex] 100 mg Tablet 100 mg PO ONCE PRNRF: 0 meloxicam 7.5 mg Tablet 1 dose PO DAILY PRNRF: 0 bisacodyl 5 mg Tablet,Delayed Release (Dr/Ec) 10 mg PO DAILY RF: 0 Medical Decision Making <Richard Marcano MD - Last Filed: 02/21/18 05:56> 27-year-old female with chronic mental health problems presents via EMS after becoming suicidal and playing in traffic. She states that she has worsening mood disruption around the time of the holidays as it reminds her of the of her father. She states that medically she has been well with the exception of some persistent burning in itching discomfort in her vaginal area since being treated for an infection . A medical screening examination performed including chaperoned vaginal exam. She has evidence of candidal vaginitis. She is taking Doxycycline and presumptively was treated for PID. Records requested from [facility] as the patient was admitted there at the end of January. One-to-one sitter ordered Screening laboratories obtained with urinalysis. Patient given fluconazole 100 mg p.o. x1 for yeast infection. Patient medically stable for further evaluation by psychiatry. Patient's daily medications ordered, Clozaril unavailable and will use patient' s own. She is taking PO without difficulty. Patient awaits voluntary placement to inpatient facility. She has tentative bed placement at [facility] and is awaiting transfer in the morning hours of February 21. Will sign out to Dr Willis pending final disposition. Lab Data Lab results reviewed: Yes I reviewed the patient's lab results. Laboratory Results - last 24 hr 02/20/18 02/20/18 02/20/18 20:45 20:45 20:47 WBC RBC Hgb Hct MCV MCH MCHC RDW Plt Count MPV Immature Gran % Neutrophils % Lymphocytes % Monocytes % Eosinophils % Basophils % Absolute Neutrophils Absolute Lymphocytes Absolute Monocytes Absolute Eosinophils Absolute Basophils Sodium 142 Potassium 3.4 L Chloride 108 H Carbon Dioxide 21.1 Anion Gap 12.9 H BUN 11 Creatinine 0.93 Estimated GFR/1.73 m2 >= 60.00 Glucose 91 Calcium 9.1 Total Bilirubin 0.2 AST 7 L ALT 17 Alkaline Phosphatase 89 Total Protein 7.5 Albumin 3.9 Urine Color Yellow Urine Clarity Clear Urine pH 6.0 Ur Specific [place] >= 1.030 H Urine Protein Trace H Urine Ketones 15 H Urine Blood Negative Urine Nitrite Negative Urine Bilirubin Small H Urine Urobilinogen 0.2 Ur Leukocyte Esterase Negative Urine RBC Negative Urine WBC Negative Ur Epithelial Cells Many Urine Crystals Mod calcium oxalate Urine Bacteria Few Urine Casts Negative Urine Mucus Moderate Ur Culture Indicated? No Urine Glucose 100 Urine Opiates Screen Negative Urine Methadone Screen Negative Ur Barbiturates Screen Negative Ur Tricyclics Screen Positive Clozapine Clozapine &Norclozapine Norclozapine Ur Amphetamines Screen Negative U Benzodiazepines Scrn Negative Urine Cocaine Screen Negative Ur THC Screen Negative Ethyl Alcohol < 3.0 02/20/18 02/20/18 20:47 21:07 WBC 8.77 RBC 4.15 Hgb 11.5 L Hct 35.1 L MCV 84.6 MCH 27.7 MCHC 32.8 RDW 17.1 H Plt Count 301 MPV 8.8 Immature Gran % 0.6 Neutrophils % 59.0 Lymphocytes % 33.0 Monocytes % 7.4 Eosinophils % 0.0 Basophils % 0.0 Absolute Neutrophils 5.18 Absolute Lymphocytes 2.89 Absolute Monocytes 0.65 Absolute Eosinophils 0.00 Absolute Basophils 0.00 Sodium Potassium Chloride Carbon Dioxide Anion Gap BUN Creatinine Estimated GFR/1.73 m2 Glucose Calcium Total Bilirubin AST ALT Alkaline Phosphatase Total Protein Albumin Urine Color Urine Clarity Urine pH Ur Specific [place] Urine Protein Urine Ketones Urine Blood Urine Nitrite Urine Bilirubin Urine Urobilinogen Ur Leukocyte Esterase Urine RBC Urine WBC Ur Epithelial Cells Urine Crystals Urine Bacteria Urine Casts Urine Mucus Ur Culture Indicated? Urine Glucose Urine Opiates Screen Urine Methadone Screen Ur Barbiturates Screen Ur Tricyclics Screen Clozapine Cancelled Clozapine &Norclozapine Cancelled Norclozapine Cancelled Ur Amphetamines Screen U Benzodiazepines Scrn Urine Cocaine Screen Ur THC Screen Ethyl Alcohol <Rosalinda Willis DO - Last Filed: 02/21/18 17:58> Please see Dr. Marcano's note for initial presentation, exam and plan. Pt is a 27yo F w/ a h/o depression who presents after becoming suicidal and playing in traffic. She is voluntary and was medically cleared. She was recently treated for possible PID and is still taking doxycycline of which was continued here along with her regular meds. She was also given clotrimazole cream here for a candidal vaginitis. GC/Chlamydia cultures done on this ED visit and pending. No acute events overnight. Plan upon endorsement was that pt has a bed at [facility] and waiting for doc to doc report at 8am. 0830 -- D/w [facility] - accepting physician Dr. Cheung. 11am -- Certified Ophthalmic Technician taking to pt to [facility]. Vitals within normal limits. HPI <Richard Marcano MD - Last Filed: 02/21/18 05:56> General Mode of arrival: EMS . Date/Time Provider Initiated Documentation: 02/20/18 20:55 . Limitations to Documentation: no limitations . Information obtained by: patient and EMS . History of Present Illness 27 year old F presents to the emergency department with the chief complaint of Mental health crisis, suicidal, described as severe, Patient started experiencing this hour(s) No relieving factors improve symptom(s), Other factors that worsen symptoms . Patient notes other (Complains of burning and itching vaginal discomfort). HPI Narrative: 27-year-old female presents from the [facility] where she has been staying with a home provider since being released from [facility]. She states to me that her father at this time of year and the holidays are hard for me. She states that she became suicidal with thoughts of being run over by a car was standing in traffic. EMS was called, patient stated that she felt unsafe and was transported to the hospital. States to me that while [place] [facility] she was discontinued on her Haldol. States when she was recently treated for a vaginal infection and that she has persistent burning and itching. No other medical complaints Related Data Home Medications Medication Instructions Recorded Confirmed budesonide-formoterol [Symbicort] 2 puff INHALATION BID 01/27/18 02/20/18 cholecalciferol (vitamin D3) 5,000 unit PO DAILY 01/27/18 02/20/18 [Vitamin D3] clozapine [Clozaril] 100 mg PO TID 01/27/18 02/20/18 clozapine [Clozaril] 175 mg PO HS 01/27/18 02/20/18 cyproheptadine 4 mg PO HS 01/27/18 02/20/18 docusate sodium 100 mg PO BID 01/27/18 02/20/18 duloxetine [Cymbalta] 30 mg PO DAILY 01/27/18 02/20/18 epinephrine [EpiPen 2-Evans] 01/27/18 fluticasone 1 spray INTRANASAL DAILY 01/27/18 02/20/18 guanfacine 2 mg PO DAILY 01/27/18 02/20/18 magnesium 400 mg PO DAILY 01/27/18 02/20/18 metformin [Glucophage] 850 mg PO BID 01/27/18 02/20/18 omega 6-fwb-ywf-fish oil [Fish Oil] 1,000 mg PO BID 01/27/18 02/20/18 omeprazole 20 mg PO DAILY 01/27/18 02/20/18 ondansetron 4 mg PO TID PRN 01/27/18 02/20/18 oxcarbazepine [Trileptal] 450 mg PO BID 01/27/18 02/20/18 quetiapine [Seroquel] 100 mg PO BID 01/27/18 02/20/18 riboflavin (vitamin B2) [Vitamin 400 mg PO DAILY 01/27/18 02/20/18 B-2] sumatriptan succinate 100 mg PO ONCE PRN 01/27/18 02/20/18 topiramate [Topamax] 125 mg PO BID 01/27/18 02/20/18 trazodone 150 mg PO DAILY 01/27/18 02/20/18 acetaminophen [Tylenol] 650 mg PO Q4H PRN PRN #0 tab 01/30/18 02/20/18 benzocaine [HurriCaine] 0 g MUCOUS MEMBRANE Q4H PRN PRN #0 01/30/18 02/20/18 g calcium carbonate 500 mg PO QID PRN PRN #0 tab 01/30/18 02/20/18 levalbuterol tartrate [Xopenex HFA] 1 puff INHALATION Q6H PRN #0 g 01/30/18 magnesium hydroxide [Milk of 30 ml PO DAILY PRN PRN #0 ml 01/30/18 02/20/18 Magnesia] nicotine 21 mg TRANSDERMAL DAILY PRN PRN #0 01/30/18 02/20/18 ea polyethylene glycol 3350 [Miralax] 17 gm PO DAILY PRN #1 each 01/30/18 02/20/18 bisacodyl 10 mg PO DAILY 02/20/18 02/20/18 bupropion HCl [Wellbutrin SR] 150 mg PO DAILY 02/20/18 02/20/18 doxycycline hyclate 100 mg PO BID 02/20/18 02/20/18 meloxicam 1 dose PO DAILY PRN 02/20/18 02/20/18 sumatriptan succinate [Imitrex] 100 mg PO ONCE PRN 02/20/18 02/20/18 Previous Rx's Medication Instructions Recorded acetaminophen [Tylenol] 650 mg PO Q4H PRN PRN #0 tab 01/30/18 benzocaine [HurriCaine] 0 g MUCOUS MEMBRANE Q4H PRN PRN #0 01/30/18 g calcium carbonate 500 mg PO QID PRN PRN #0 tab 01/30/18 levalbuterol tartrate [Xopenex HFA] 1 puff INHALATION Q6H PRN #0 g 01/30/18 magnesium hydroxide [Milk of 30 ml PO DAILY PRN PRN #0 ml 01/30/18 Magnesia] nicotine 21 mg TRANSDERMAL DAILY PRN PRN #0 01/30/18 ea polyethylene glycol 3350 [Miralax] 17 gm PO DAILY PRN #1 each 01/30/18 Allergies Allergy/AdvReac Type Severity Reaction Status Date / Time bee pollen AdvReac Unverified 01/27/18 17:49 bee venom protein (honey bee) AdvReac Unverified 01/27/18 17:49 General Stated Complaint: PsychEval ISH: 2 Review of Systems <Richard Marcano MD - Last Filed: 02/21/18 05:56> Review of Systems 8 systems reviewed and otherwise - Exam <Richard Marcano MD - Last Filed: 02/21/18 05:56> Narrative Exam Narrative: GEN: awake, alert, oriented 3. Pleasant, well groomed, interactive. HEAD: Normocephalic, atraumatic ENT: Mucous membranes moist, oropharynx unremarkable, External ear exam unremarkable EYES: PERRL, EOMI NECK: Full ROM, no KOBE, no menigismus CHEST/RESP: Nontender, clear to auscultation bilateral, no wheeze/rhonchi/rales CARDIOVASCULAR: RRR, no murmur, rub amrit. 2+ Rad pulse bilateral ABDOMEN: Soft, nontender, no mass. +Bowel sounds. The vaginal introitus has beefy red erythema and white discharge. No tenderness. No asymmetry. Speculum exam unremarkable EXT: Full ROM, no edema, no rash Neuro: Grossly normal neurologic exam, conversant, interactive. Psych: Speech fluent, thoughts congruent, affect flat, voices and suicidal thoughts without plan Course <Richard Marcano MD - Last Filed: 02/21/18 05:56> Vital Signs Temperature 36.3 C L 02/20/18 20:28 Pulse 96 H 02/20/18 20:28 Respiratory Rate 20 02/20/18 20:28 Blood Pressure 115/68 02/20/18 20:28 Pulse Oximetry 100 02/20/18 20:28 Temperature 36.3 C L 02/20/18 20:28 Temperature Source Skin 02/20/18 20:28 Pulse 96 H 02/20/18 20:28 Respiratory Rate 20 02/20/18 20:28 Blood Pressure 115/68 02/20/18 20:28 Blood Pressure Position Sitting 02/20/18 20:28 Pulse Oximetry 100 02/20/18 20:28 Comment 02/20/18 20:28 Sign Out <Richard Marcano MD - Last Filed: 02/21/18 05:56> Sign Out Data: Sign Out Comment: Accepted to [facility], Doc-Doc call after 8am Last updated by Richard Marcano MD at 02/21/18 07:41
[2018-02-20 20:57] LABS: Bilirubin Small (Negative); Blood Negative (Negative); Clarity Clear; Glucose 100 mg/dL (Negative); Ketones 15 mg/dL (Negative); Leukocyte Esterase Negative (Negative); Nitrite Negative (Negative); Specific Gravity >= 1.030 (1.005-1.025); Urobilinogen 0.2 EU/dL (Up TO 0.2)
[2018-02-20 21:02] LABS: Abs Immature Grans 0.05 k/cumm (0.0-0.09); Absolute Lymphocyte Count 2.89 k/cumm (1.2-3.4); Absolute Monocyte Count 0.65 k/cumm (0.11-0.7); Absolute Neutrophil Count 5.18 k/cumm (1.2-6.7); HCT 35.1 % (36.0-46.0); HGB 11.5 g/dL (12.0-15.5); Immature Grans % 0.6; Mean Corp. HGB Concentration 32.8 g/dL (32.0-36.0); Mean Corpuscular Hemoglobin 27.7 pg (27.0-33.0); Mean Corpuscular Volume 84.6 fL (80-95); Mean Platelet Volume 8.8 fL (8.0-11.0); Monocytes % 7.4; Platelet Count 301 x1000/uL (130-400); RBC 4.15 m/cumm (4.00-5.20); RBC Distribution Width 17.1 % (11.7-14.6); White Blood Cell Count 8.77 k/cumm (4.4-10.8)
[2018-02-20 21:08] LABS: ALT 17 U/L (12-78); AST 7 U/L (15-37); Albumin 3.9 g/dL (3.4-5.0); Alkaline Phosphatase 89 U/L (46-116); Anion Gap 12.9 mmol/L (3-11); BUN 11 mg/dL (7-18); Bilirubin, Total 0.2 mg/dL (0.2-1.0); CO2 21.1 mmol/L (21.0-32.0); CREATININE 0.93 mg/dL (0.55-1.02); Calcium 9.1 mg/dL (8.5-10.1); Chloride 108 mmol/L (98-107); Glucose 91 mg/dL (70-100); Potassium 3.4 mmol/L (3.5-5.1); Sodium 142 mmol/L (136-145); Total Protein 7.5 g/dL (6.4-8.2)
[2018-02-20 21:10] LABS: Bacteria Few HPF (Negative); C & S Indicated? No; Casts Negative LPF (Negative); Crystals Mod Calcium Oxalate HPF (Negative); Epithelial Cells Many HPF (Negative); Mucus Moderate (Negative); RBC Negative (0-2); WBC Negative HPF (0-5)
[2018-02-20 21:16] LABS: *AMPHETAMINES SCREEN URINE Negative (Negative); *BARBITURATES SCREEN URINE Negative (Negative); *BENZODIAZEPINES SCREEN URINE Negative (Negative); Cannabinoids THC Negative (Negative); Cocaine Screen,Urine Negative (Negative); METHADONE URINE SCREEN Negative (Negative); OPIATES URINE SCREEN Negative (Negative)
[2018-02-20 21:20] LABS: ETHANOL BLOOD < 3.0 mg/dL (<3)
[2018-02-20 21:20] LABS: Tricyclic Antidepressants POSITIVE (Negative)
[2018-02-20] MEDS: Budesonide/Formoterol 80/4.5 6.9 GM 60 PUFF INH IH (21:25)
[2018-02-20 21:27] LABS: Salicylate 2.9 mg/dL (2.8-20.0)
[2018-02-20 21:28] LABS: Acetaminophen < 2 ug/mL (10-30)
[2018-02-20] MEDS: metFORMIN 850 MG TAB PO (21:28)
[2018-02-20] MEDS: Doxycycline Hyclate 100 MG CAP PO (21:30)
[2018-02-20] MEDS: QUEtiapine 100 MG TAB PO ×2 (21:31→21:35)
[2018-02-20] MEDS: Topiramate 100 MG TAB PO (21:33)
[2018-02-20] MEDS: Cyproheptadine 4 MG TAB PO (21:34)
[2018-02-20] MEDS: Docusate Sodium 100 MG CAP PO (21:34)
[2018-02-20] MEDS: Benztropine 1 MG TAB PO (21:43)
[2018-02-20] MEDS: traZODone 100 MG TAB 150 MG PO (21:44)
[2018-02-20] MEDS: Omeprazole 20 MG CAPCR PO (21:44)
[2018-02-20] MEDS: Acetaminophen 500 MG TAB 1000 MG PO (22:04)
[2018-02-20] MEDS: Clotrimazole 1% 15 GM TUBE TP (22:56)
--- NOTE | 2018-02-20 23:11 | PDOC.ERCMPRO ---
- If Service Date Differs Date of service: 02/20/18 Time of Service: 23:12 Care Management Progress Note CM contacted by ED to implement interim safety plan for Mary. Mary who is currently present in the ED for SI and in need for further interventions r/t SI which are being coordinated by [facility]. Mary is voluntary for psychiatric stabilization at this time. Per clinical chart she currently living in a home in [place], [place] after being discharged from [facility]. Per report she is currently a [facility] client. The following Interim plan is being implemented while the patient remains in the ED with CPSO one on one while awaiting safe discharge plan coordinated by [facility], [facility]. Interim Safety Plan H.W. RM 5, ED 1. Mary will have a one on one CPSO, MILK PROCESSING WORKER, CLEARING TUB WORKER offset proof press operator at all times while in her room and while outside the room. Including one on one to the restroom. 2. Mary will remain in paper clothing and have no belongings in the room. 3. She may have paper cups, plates and finger foods, she may have a metal spoon to be accounted for by staff after her meal. 4.Visitors at the discretion of primary care staff and mental health. 5. Comfort bath system only. 6. She may have activities that include coloring, crayons, soft tip markers and TV if available. 7. Please follow [facility] policy for managing the behavioral health patient policy. Plan: [facility] will coordinate safe discharge plan or transition to next level of care for psychiatric stabilization. Please contact coconut boiler CM and [facility] for changes in the safety plan. [facility] is contacting [facility] to assist with the discharge plan and disposition on Mary?s behalf. - MH Services (Omit if N/A) Current MH Services: SECURITY STRATEGIST Referred to Internal [facility] (ED embedded) heel caser?: Yes
--- NOTE | 2018-02-20 23:35 | CMPROGNOTE_ITS ---
- If Service Date Differs Date of service: 02/20/18 Time of Service: 23:12 Care Management Progress Note CM contacted by ED to implement interim safety plan for Mary. Mary who is currently present in the ED for SI and in need for further interventions r/t SI which are being coordinated by [facility]. Mary is voluntary for psychiatric stabilization at this time. Per clinical chart she currently living in a home in [place], [place] after being discharged from [facility]. Per report she is currently a [facility] client. The following Interim plan is being implemented while the patient remains in the ED with CPSO one on one while awaiting safe discharge plan coordinated by [facility], [facility]. Interim Safety Plan H.W. RM 5, ED 1. Mary will have a one on one CPSO, COKE BURNER, HUMAN SERVICES INSTRUCTOR clothing sorter at all times while in her room and while outside the room. Including one on one to the restroom. 2. Mary will remain in paper clothing and have no belongings in the room. 3. She may have paper cups, plates and finger foods, she may have a metal spoon to be accounted for by staff after her meal. 4.Visitors at the discretion of primary care staff and mental health. 5. Comfort bath system only. 6. She may have activities that include coloring, crayons, soft tip markers and TV if available. 7. Please follow [facility] policy for managing the behavioral health patient policy. Plan: [facility] will coordinate safe discharge plan or transition to next level of care for psychiatric stabilization. Please contact lead simulation modeling engineer CM and [facility] for changes in the safety plan. [facility] is contacting [facility] to assist with the discharge plan and disposition on Mary?s behalf. - MH Services (Omit if N/A) Current MH Services: TRANSMISSIONS SYSTEMS OPERATOR Referred to Internal [facility] (ED embedded) case packer and sealer?: Yes
--- NOTE | 2018-02-20 23:37 | NUR.NOTE ---
Nursing Note: Supervised exterior vaginal exam with Dr. Marcano d/t pt complaining of vaginal discomfort from HPV flare up
--- NOTE | 2018-02-20 23:38 | NUR.NOTE ---
Nursing Note: This video games storywriter was present during the vaginal exam performed by Dr. Marcano.
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
[2018-02-21] MEDS: QUEtiapine 100 MG TAB PO (09:58)
[2018-02-21] MEDS: Benztropine 1 MG TAB PO (09:58)
[2018-02-21] MEDS: metFORMIN 850 MG TAB PO (09:58)
[2018-02-21] MEDS: Docusate Sodium 100 MG CAP PO (09:59)
[2018-02-21] MEDS: Doxycycline Hyclate 100 MG CAP PO (09:59)
[2018-02-21] MEDS: Topiramate 100 MG TAB PO (09:59)
[2018-02-21] MEDS: Clotrimazole 1% 15 GM TUBE TP (10:00)
[2018-02-21] MEDS: Budesonide/Formoterol 80/4.5 6.9 GM 60 PUFF INH IH (10:01)
[2018-02-21 10:06] VITALS: BP 117/67; PULSE 86; RESP 18; TEMP 36.6; O2SAT 99
[2018-02-21 11:00] VITALS: BP 117/67; PULSE 86; RESP 18; TEMP 36.6; O2SAT 99
[2018-02-23 14:48] LABS: Chlamydia Result Negative; GC Result Negative; Specimen Description CERVIX
== END 2018-02-21 11:08 | disposition short-term general hospital (02) ==
PROVIDERS: Emergency Medicine; Emergency Provider Physician Assistant; PCP Internal Medicine
DX: F32.9 Major depressive disorder, single episode, unspecified (principal); R45.851 Suicidal ideations; B37.3 Candidiasis of vulva and vagina; Z75.1 Person awaiting admission to adequate facility elsewhere; E11.9 Type 2 diabetes mellitus without complications; Z79.84 Long term (current) use of oral hypoglycemic drugs
CPT/HCPCS: 36415; 80053; 80307; 81025; 87491; 87591; 99285; 80159; 80320; 80329; 81003; 81015; 85025; 87480; 87510; 87660; 99284

== ENCOUNTER 2018-04-07 17:34 | Emergency (ER) | payer MEDICAID, SELFPAY ==
[2018-04-07 17:50] VITALS: BP 122/64; PULSE 90; RESP 16; TEMP 36.7
[2018-04-07 17:53] VITALS: O2SAT 99
--- NOTE | 2018-04-07 17:58 | NUR.NOTE ---
Nursing Note: Pt. changed into blue scrubs with this RN, pt. was cooperative and protocol was explained to patient. Belongings secured.
--- NOTE | 2018-04-07 18:16 | NUR.NOTE ---
patient in room 9 with mother , patient is cooperative and requesting food, patient is to be evaluated by practionioner before eating Nursing Note:
--- NOTE | 2018-04-07 18:20 | NUR.NOTE ---
patient sitting with mother and RN Luis, will continue to monitor Nursing Note:
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
[2018-04-07 18:57] LABS: Abs Immature Grans 0.12 k/cumm (0.0-0.09); Absolute Basophil Count 0.02 k/cumm (0.0-0.2); Absolute Lymphocyte Count 2.95 k/cumm (1.2-3.4); Absolute Monocyte Count 0.65 k/cumm (0.11-0.7); Absolute Neutrophil Count 4.75 k/cumm (1.2-6.7); Basophils % 0.2; HCT 34.9 % (36.0-46.0); HGB 11.5 g/dL (12.0-15.5); Immature Grans % 1.4; Lymphocytes % 34.7; Mean Corpuscular Hemoglobin 27.8 pg (27.0-33.0); Mean Corpuscular Volume 84.5 fL (80-95); Mean Platelet Volume 8.5 fL (8.0-11.0); Monocytes % 7.7; Platelet Count 453 x1000/uL (130-400); RBC 4.13 m/cumm (4.00-5.20); RBC Distribution Width 16.3 % (11.7-14.6); White Blood Cell Count 8.49 k/cumm (4.4-10.8)
[2018-04-07 19:20] LABS: ALT 13 U/L (12-78); AST 8 U/L (15-37); Albumin 3.5 g/dL (3.4-5.0); Alkaline Phosphatase 79 U/L (46-116); Anion Gap 13.5 mmol/L (3-11); BUN 12 mg/dL (7-18); Bilirubin, Total 0.2 mg/dL (0.2-1.0); CO2 20.5 mmol/L (21.0-32.0); CREATININE 0.95 mg/dL (0.55-1.02); Calcium 9.4 mg/dL (8.5-10.1); Chloride 108 mmol/L (98-107); ETHANOL BLOOD < 3.0 mg/dL (<3); Glucose 94 mg/dL (70-100); Potassium 3.8 mmol/L (3.5-5.1); Sodium 142 mmol/L (136-145); Total Protein 7.4 g/dL (6.4-8.2)
[2018-04-07 19:34] LABS: Salicylate 4.7 mg/dL (2.8-20.0)
[2018-04-07 19:40] LABS: Acetaminophen < 2 ug/mL (10-30)
[2018-04-07] MEDS: Ondansetron O.D.T. 4 MG TABEF PO (20:11)
--- NOTE | 2018-04-07 20:12 | NUR.NOTE ---
patient eating supper and took zofran for nausea Nursing Note:
[2018-04-07 20:29] LABS: Bilirubin Negative (Negative); Blood Moderate (Negative); Clarity Clear; Glucose Negative (Negative); Ketones Negative (Negative); Leukocyte Esterase Negative (Negative); Nitrite Negative (Negative); Urobilinogen 0.2 EU/dL (Up TO 0.2)
[2018-04-07 20:36] LABS: Bacteria Negative HPF (Negative); C & S Indicated? No; Casts Negative LPF (Negative); Crystals Negative HPF (Negative); Epithelial Cells Many HPF (Negative); Mucus Negative (Negative); Other Cells Negative (Negative); RBC Negative (0-2); WBC 0-2 HPF (0-5)
--- NOTE | 2018-04-07 20:41 | NUR.NOTE ---
urine sample sent, patient's nausea improved Nursing Note:
[2018-04-07 20:47] LABS: *AMPHETAMINES SCREEN URINE Negative (Negative); *BARBITURATES SCREEN URINE Negative (Negative); *BENZODIAZEPINES SCREEN URINE Negative (Negative); Cannabinoids THC Negative (Negative); Cocaine Screen,Urine Negative (Negative); METHADONE URINE SCREEN Negative (Negative); OPIATES URINE SCREEN Negative (Negative)
[2018-04-07 21:01] LABS: Tricyclic Antidepressants POSITIVE (Negative)
[2018-04-07] MEDS: Amoxicillin 875/Clav. 125 TAB PO (21:32)
--- NOTE | 2018-04-07 21:46 | NUR.NOTE ---
patient to board in the Ed over night, patient took medications out of the blister packs, TJ Smith aware. ED is in possession of the medbox. patient and patient's mother is consenting with this plan. Nursing Note:
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
--- NOTE | 2018-04-07 23:23 | NUR.NOTE ---
patient resting comfortbably,1:1 constant obersver with patient. Nursing Note:
--- NOTE | 2018-04-07 23:53 | NUR.NOTE ---
patient sleeping with 1:1 constant observer, report given to nights RN Nursing Note:
--- NOTE | 2018-04-08 03:49 | NUR.NOTE ---
Nursing Note: Accepted report from MARQUISE RN on patient at oncoming of shift. Patient has been asleep for entire shift thus far with CPSO continuously monitoring patient. Careplan is being followed, patient appears to be remaining stable at this time.
[2018-04-08 06:23] VITALS: BP 112/68; PULSE 70; RESP 12; TEMP 36.8; O2SAT 98
--- NOTE | 2018-04-08 10:19 | NUR.NOTE ---
Nursing Note: Pt. is alert, calm, . Ambulatory to restroom with one to one sitter. Breakfast ordered by Lucita tyler,
[2018-04-08] MEDS: metFORMIN 850 MG TAB PO (10:29)
[2018-04-08] MEDS: QUEtiapine 100 MG TAB PO (10:29)
--- NOTE | 2018-04-08 10:34 | NUR.NOTE ---
Nursing Note: Mental Health is at the bedside. Metformin and Seroquel from home administered as ordered. A bubble pack is missing, will dicuss with patient.
--- NOTE | 2018-04-08 12:32 | NUR.NOTE ---
patient medicated with am clozapine medication was verified via pharmacy and micromedex with CARMELLA Smith Nursing Note:
[2018-04-08] MEDS: guanFACINE 1 MG TAB 2 MG PO (12:42)
[2018-04-08] MEDS: DULoxetine 30 MG CAP PO (12:42)
[2018-04-08] MEDS: Omega-3 Fatty Acids 1000 MG CAP PO (12:42)
[2018-04-08] MEDS: OXcarbazepine 150 MG TAB 450 MG PO (12:42)
[2018-04-08] MEDS: Bisacodyl 5 MG TABEC 10 MG PO (12:43)
[2018-04-08] MEDS: Topiramate 100 MG TAB PO (12:44)
[2018-04-08] MEDS: Amoxicillin 875/Clav. 125 TAB PO (12:50)
--- NOTE | 2018-04-08 13:23 | NUR.NOTE ---
patient denies nausea or vomtiing, patient reported chest pain, MD aware no new orders Nursing Note:
--- NOTE | 2018-04-08 13:55 | NUR.NOTE ---
patient cooperative with staff, driking fluids, ambulating to restroom without difficulty and taking prescribed medications Nursing Note:
--- NOTE | 2018-04-08 15:16 | NUR.NOTE ---
patient eating lunch, 1:1 observer with patient Nursing Note:
--- NOTE | 2018-04-08 16:40 | CMPROGNOTE_ITS ---
- If Service Date Differs Date of service: 04/08/18 Time of Service: 16:38 Care Management Progress Note Safety Plan 04/08/18 VOLUNTARY FOR INPATIENT PSYCHIATRIC STABILIZATION. Current behaviors: Currently Mary has been cooperative and appropriate in all interactions since arriving at [facility]. She remains in the ER at this time awaiting bed availability. Huddle Participants: MELANY spoke with Imelda, board of education secretary, whom spoke with Luis, no changes in safety plan or huddle required. Safety plan has been established with patient, and care team, to adhere to patient goals, identify restrictions based on behavioral status, address nutrition, and determine allowed personal belongings, tools for hygiene and personal care. Determine level of activity including ambulation, level of supervision, visitors, and determine privileges based on behaviors and level of engagement by pt. SAFETY PLAN: 1. Will remain on suicide precautions and in paper clothes. 2. Will remain in room under direct supervision of one-on-one staff at all times provided by CESAR, CHILDREN'S SERVICE WORKER compensator worker. 3. May have paper cups, plates, finger foods as well as a metal spoon with which to eat meals. [facility] staff will be responsible for accounting of utensils after meals. 4. Follow [facility] Management of the Admitted Behavioral Health Patient policy. 5. Comfort bath system only. 6. No personal belongings. Has earrings in which she may wear. 7. Visitors Guardian Candace Romero, and staff from [facility] 8. Activities Mary will be provided with crayons and paper as this is therapeutic for her. 9. Bathroom Privileges CPSO to escort to bathroom, and stand outside of bathroom. 10. Mary to remain in the ER at this time until a bed becomes available. 11. Due to VOLUNTARY status, if patient wishes to leave [facility], the [facility] life skills worker must be contacted to re-evaluate patient prior to patient exiting the building. Placement: [facility] has referrals. Betty states that they cannot take at this time. Patient is currently voluntarily at [facility] and seeking inpatient admission when a bed becomes available. [facility] Frontline Cold Meat Chef will continue seeking placement. Please contact the Binder Stripper Machine Oil Fire Specialist ([phone]) and [facility] Cri sis Worker ([phone]) for any needed changes in the Safety Plan. Safety plan has been provided to interdepartmental care team including Clinical Coordinator, Nursing Runstitching Machine Operator.
--- NOTE | 2018-04-08 17:44 | NUR.NOTE ---
[facility], awaiting doc to soc and nurse to adal report Nursing Note:
[2018-04-08 17:53] VITALS: BP 109/75; PULSE 94; RESP 16; TEMP 36.7; O2SAT 99
--- NOTE | 2018-04-08 17:58 | NUR.NOTE ---
patient aware of potential transfer and aaware of doc to doc report pending, patient and 1:1 observer in room Nursing Note:
[2018-04-08] MEDS: Mylanta Suspension 30 ML CUP PO (18:20)
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
--- NOTE | 2018-04-08 19:56 | NUR.NOTE ---
patient medicated with blister pack evening medication, micromedix id was to identify medications . patient cooperative with staff and is aware of current waiting status Nursing Note:
--- NOTE | 2018-04-08 20:00 | NUR.NOTE ---
patient offered tooth brush, wash cloth for cleaning up, patient politely refused. Nursing Note:
--- NOTE | 2018-04-08 22:33 | NUR.NOTE ---
patient sleeping, 1:1 observer present Nursing Note:
--- NOTE | 2018-04-09 04:02 | NUR.NOTE ---
Nursing Note: Patient cooperative. Continues to await transfer. Doc to doc performed at 2200. Patient to leave at 8 am. Poultry Inseminator's office notified of impending transfer. Patient asleep with CPSO at bedside. Careplan continues to be followed.
--- NOTE | 2018-04-09 06:32 | NUR.NOTE ---
Nursing Note: [facility] called and requested report. Report given, nurse asked for patient to be transferred sooner than later than the previous request to wait until 0800. Undercover Cop's office notified. aware.
[2018-04-09 06:41] VITALS: BP 111/60; PULSE 80; RESP 18; TEMP 36.8; O2SAT 98
[2018-04-09 06:59] VITALS: BP 111/60; PULSE 80; RESP 18; TEMP 36.8; O2SAT 98
--- NOTE | 2018-04-09 07:34 | NUR.NOTE ---
0735 left for Abdifatah Piqua with shredded filler cigar maker machine. box of meds with shredded filler cigar maker machine as well as belongings.Nursing Note:
== END 2018-04-09 07:33 | disposition short-term general hospital (02) ==
PROVIDERS: Physician Assistant; Emergency Provider Emergency Medicine; PCP Internal Medicine
DX: R44.0 Auditory hallucinations (principal); F41.8 Other specified anxiety disorders; R45.851 Suicidal ideations; Z75.1 Person awaiting admission to adequate facility elsewhere; E11.9 Type 2 diabetes mellitus without complications; Z79.84 Long term (current) use of oral hypoglycemic drugs
CPT/HCPCS: 36415; 80053; 80307; 81025; 99285; 80320; 80329; 81003; 81015; 84443; 85025; 99284

== ENCOUNTER 2018-04-16 17:01 | Emergency (ER) | payer MEDICAID, SELFPAY ==
[2018-04-16] VITALS (17 sets, daily range): BP systolic 103–116; BP diastolic 63–72; PULSE 76–102; RESP 15–18; TEMP 36.4–36.9; O2SAT 95–100
--- NOTE | 2018-04-16 17:10 | DI.CT_ITS ---
SYMPTOM/DIAGNOSIS: SOB, ON OCP, ? PE PE CHEST CT: CT angiography was performed with multi slice acquisition and multi planar and 3D reconstruction. There is no evidence of pulmonary emboli or aortic dissection. No aortic aneurysm is seen. There is mild bibasilar atelectasis and a small right pleural effusion. No mass, adenopathy or infiltrate is seen. IMPRESSION: Negative chest CT. No evidence of pulmonary emboli or other acute abnormality.
--- NOTE | 2018-04-16 17:14 | W.ED.GENAD ---
Discharge Plan Disposition Patient Disposition: HOME Condition: Good Discharge Details Chief Complaint: Chest Pain Clinical Impression: Precordial catch syndrome, Chest pain Primary Care Provider: Judie Coyle ED Provider: Bertram Mckenzie Home Meds and New Rx's Prescriptions: New acetaminophen [Mapap Extra Strength] 500 MG tablet 1,000 mg PO Q6H 5 Days Qty: 60 RF: 0 ibuprofen [Motrin IB] 200 MG tablet 600 mg PO Q6H 5 Days Qty: 60 RF: 0 No Action amoxicillin-pot clavulanate [Augmentin] 875-125 mg Tablet 1 tab PO BID RF: 0 clozapine [Clozaril] 100 mg Tablet 175 mg PO HS RF: 0 clozapine [Clozaril] 100 mg Tablet 100 mg PO TID RF: 0 riboflavin (vitamin B2) [Vitamin B-2] 100 mg Tablet 400 mg PO DAILY RF: 0 sumatriptan succinate 100 mg Tablet 100 mg PO ONCE PRNRF: 0 metformin [Glucophage] 850 mg Tablet 850 mg PO BID RF: 0 oxcarbazepine [Trileptal] 300 mg Tablet 450 mg PO BID RF: 0 quetiapine [Seroquel] 100 mg Tablet 100 mg PO BID RF: 0 cyproheptadine 4 mg Tablet 4 mg PO HS RF: 0 trazodone 150 mg Tablet 150 mg PO DAILY RF: 0 guanfacine 1 mg Tablet 2 mg PO DAILY RF: 0 omeprazole 20 mg Capsule,Delayed Release(Dr/Ec) 20 mg PO DAILY RF: 0 magnesium 250 mg Tablet 400 mg PO DAILY RF: 0 epinephrine [EpiPen 2-Evans] 0.3 mg/0.3 mL Auto-Injector RF: 0 topiramate [Topamax] 100 mg Tablet 125 mg PO BID RF: 0 fluticasone 50 mcg/actuation [place],Suspension 1 spray INTRANASAL DAILY RF: 0 docusate sodium 100 mg Tablet 100 mg PO BID RF: 0 duloxetine [Cymbalta] 30 mg Capsule,Delayed Release(Dr/Ec) 30 mg PO DAILY RF: 0 Symbicort 80-4.5 mcg/actuation Hfa Aerosol Inhaler 2 puff INHALATION BID RF: 0 cholecalciferol (vitamin D3) [Vitamin D3] 5,000 unit Tablet 5,000 unit PO DAILY RF: 0 omega 2-yjk-jgf-fish oil [Fish Oil] 1,000 mg (120 mg-180 mg) Capsule 1,000 mg PO BID RF: 0 acetaminophen [Tylenol] 325 mg Tablet 650 mg PO Q4H PRN PRNQty: 0 RF: 0 magnesium hydroxide [Milk of Magnesia] 400 mg/5 mL Suspension 30 ml PO DAILY PRN PRNQty: 0 RF: 0 calcium carbonate 200 mg calcium (500 mg) Tablet,Chewable 500 mg PO QID PRN PRNQty: 0 RF: 0 nicotine 21 mg/24 hr Patch 24 Hour 21 mg Transdermal DAILY PRN PRNQty: 0 RF: 0 levalbuterol tartrate [Xopenex HFA] 45 mcg/actuation Hfa Aerosol Inhaler 1 puff INHALATION Q6H PRN (Reason: shortness of breath or wheezing) Qty: 0 RF: 0 polyethylene glycol 3350 [Miralax] 17 gram powder in packet 17 gm PO DAILY PRN (Reason: constipation) Qty: 1 RF: 0 sumatriptan succinate [Imitrex] 100 mg Tablet 100 mg PO ONCE PRNRF: 0 bisacodyl 5 mg Tablet,Delayed Release (Dr/Ec) 10 mg PO DAILY RF: 0 Discharge Instructions Instructions: Chest Pain (ED) Additional Instructions: Please take Tylenol, and Motrin for your pain. If you notice any worsening of your symptoms, or any new symptoms such as vomiting, diarrhea, fever, chills, shortness of breath, chest pain, numbness, weakness, or fainting , please return immediately to the emergency department for reevaluation. Please follow up with your primary care provider as soon as possible for reassessment and reevaluation. As always, it was a pleasure participating in your medical care today. Referrals: Judie Coyle MD [Primary Care Provider] - Medical Decision Making This is a 27-year-old female who presents for evaluation of chest pain. It is in the left side of her chest, is pleuritic, and it radiates of the left arm. It is not exertional. She is taking control through a Mirena device. Both of her parents have a history of blood clots. She is tachycardic, has pleuritic chest pain and is on control and this does concern me for potential PE. We will get a CT scan for further evaluation of her chest, rehydrate, and evaluate for an unlikely cardiac etiology as well. Differential includes musculoskeletal chest pain, less likely pulmonary embolism. 7:[address] scan is negative for any evidence of pulmonary embolism, pneumonia, or pneumothorax. No evidence of acute fracture. No other acute process. Laboratory workup is benign with no evidence of significant leukocytosis, bandemia or electrolyte abnormality. Initial troponin is negative. The patient's heart score is less than 2. She is low risk for any cardiac event and her signs and symptoms are certainly clinically inconsistent with a cardiac event. She has no improvement when she leans forward, and so I doubt pericarditis. Her signs and symptoms are more consistent with either a musculoskeletal etiology or precordial catch syndrome. We will get a second troponin at 3 hours for further evaluation although I feel this will most likely be negative as her symptoms are unlikely to be cardiac. 9:19 PM Serial troponins are negative, patient's pain is controlled. Vital signs continues to demonstrate resolution of tachycardia. With a benign laboratory workup, benign CT scan showing no evidence of PE or other acute process, and a normal EKG I feel her signs and symptoms are secondary to precordial catch syndrome versus a musculoskeletal spasm. Patient will be discharged home with Tylenol, Motrin, and close follow-up with PCP. I have extensively reviewed the treatment plan and discharge instructions with the patient and their family. I have addressed all patient concerns at this time. The patient and family was made aware of what symptoms to monitor for that would warrant a return to the emergency department. Discussed the plan with the patient and family, they demonstrate verbal understanding and agreement with our assessment and plan at this time. EKG 17: 18 Rate 87, TN 148, QTc 443, QRS 94, sinus rhythm, no significant ST elevations or depressions, no T wave inversions. Q waves noted in lead III. No evidence of significant right heart strain. COMPARISON: No relevant prior studies available. FINDINGS: Pulmonary arteries: No evidence of pulmonary embolus to the segmental level. Aorta: No aneurysm of the aorta. No dissection of the aorta. Lungs: Bibasilar atelectasis Pleural space: Small right pleural effusion. Heart: Normal. No cardiomegaly. No pericardial effusion. Lymph nodes: Unremarkable. No enlarged lymph nodes. Bones/joints: Unremarkable. No acute fracture. Soft tissues: Unremarkable. IMPRESSION: 1. No evidence of pulmonary embolus to the segmental level. 2. No aneurysm of the aorta. 3. No dissection of the aorta. Thank you for allowing us to participate in the care of your patient. Dictated and Authenticated by: Balbir Danielle MD [facility] General Date/Time Provider Initiated Documentation: 04/16/18 17:02. [facility] Narrative: This is a 27-year-old female with a past medical history of diabetes and depression who presents today for evaluation of chest pain. The patient states that 1 hour prior to arrival she developed sharp chest pain in her left chest radiates down her left arm. It is nonexertional. It is pleuritic. She denies any cough but does admit to mild shortness of breath. She denies any hemoptysis. She describes the pain is only sharp, it does not have any tearing sensation or pressure-like sensation. She denies any calf pain, she denies any numbness tingling or weakness. She is on the Mirena control device, family history is positive for blood clots for both her mother and her father. She denies any other modifying factors at this time. She denies any history of early heart disease or at a young age. No other complaints at this time. She does admit to tobacco marijuana use. Related Data Home Medications Medication Instructions Recorded Confirmed Symbicort 2 puff INHALATION BID 01/27/18 04/07/18 cholecalciferol (vitamin D3) 5,000 unit PO DAILY 01/27/18 04/07/18 [Vitamin D3] clozapine [Clozaril] 100 mg PO TID 01/27/18 04/07/18 clozapine [Clozaril] 175 mg PO HS 01/27/18 04/07/18 cyproheptadine 4 mg PO HS 01/27/18 04/07/18 docusate sodium 100 mg PO BID 01/27/18 04/07/18 duloxetine [Cymbalta] 30 mg PO DAILY 01/27/18 04/07/18 epinephrine [EpiPen 2-Evans] 01/27/18 fluticasone 1 spray INTRANASAL DAILY 01/27/18 04/07/18 guanfacine 2 mg PO DAILY 01/27/18 04/07/18 magnesium 400 mg PO DAILY 01/27/18 04/07/18 metformin [Glucophage] 850 mg PO BID 01/27/18 04/07/18 omega 0-lfy-fuz-fish oil [Fish Oil] 1,000 mg PO BID 01/27/18 04/07/18 omeprazole 20 mg PO DAILY 01/27/18 04/07/18 oxcarbazepine [Trileptal] 450 mg PO BID 01/27/18 04/07/18 quetiapine [Seroquel] 100 mg PO BID 01/27/18 04/07/18 riboflavin (vitamin B2) [Vitamin 400 mg PO DAILY 01/27/18 04/07/18 B-2] sumatriptan succinate 100 mg PO ONCE PRN 01/27/18 04/07/18 topiramate [Topamax] 125 mg PO BID 01/27/18 04/07/18 trazodone 150 mg PO DAILY 01/27/18 04/07/18 acetaminophen [Tylenol] 650 mg PO Q4H PRN PRN #0 tab 01/30/18 04/07/18 calcium carbonate 500 mg PO QID PRN PRN #0 tab 01/30/18 04/07/18 levalbuterol tartrate [Xopenex HFA] 1 puff INHALATION Q6H PRN #0 g 01/30/18 04/07/18 magnesium hydroxide [Milk of 30 ml PO DAILY PRN PRN #0 ml 01/30/18 04/07/18 Magnesia] nicotine 21 mg TRANSDERMAL DAILY PRN PRN #0 01/30/18 04/07/18 ea polyethylene glycol 3350 [Miralax] 17 gm PO DAILY PRN #1 each 01/30/18 04/07/18 bisacodyl 10 mg PO DAILY 02/20/18 04/07/18 sumatriptan succinate [Imitrex] 100 mg PO ONCE PRN 02/20/18 04/07/18 amoxicillin-pot clavulanate 1 tab PO BID 04/07/18 04/07/18 [Augmentin] acetaminophen [Mapap Extra 1,000 mg PO Q6H 5 Days #60 tab 04/16/18 Strength] ibuprofen [Motrin Ib] 600 mg PO Q6H 5 Days #60 tab 04/16/18 Previous Rx's Medication Instructions Recorded acetaminophen [Tylenol] 650 mg PO Q4H PRN PRN #0 tab 01/30/18 calcium carbonate 500 mg PO QID PRN PRN #0 tab 01/30/18 levalbuterol tartrate [Xopenex HFA] 1 puff INHALATION Q6H PRN #0 g 01/30/18 magnesium hydroxide [Milk of 30 ml PO DAILY PRN PRN #0 ml 01/30/18 Magnesia] nicotine 21 mg TRANSDERMAL DAILY PRN PRN #0 01/30/18 ea polyethylene glycol 3350 [Miralax] 17 gm PO DAILY PRN #1 each 01/30/18 acetaminophen [Mapap Extra 1,000 mg PO Q6H 5 Days #60 tab 04/16/18 Strength] ibuprofen [Motrin Ib] 600 mg PO Q6H 5 Days #60 tab 04/16/18 Allergies Allergy/AdvReac Type Severity Reaction Status Date / Time bee pollen Allergy Severe Anaphylaxsi Unverified 04/09/18 06:04 s bee venom protein (honey bee) Allergy Severe Anaphylaxsi Unverified 04/09/18 06:04 s mushroom Allergy Severe Anaphylaxsi Verified 04/09/18 06:04 s General Stated Complaint: Chest Pain ISH: 2 Review of Systems Review of Systems All systems reviewed & are unremarkable except as noted in HPI and below PFSH Social History caregiver/support person: Yes housing: other Smoking/Tobacco Use Status: Current every day quit status: quit date established substance use type: does not use Exam Narrative Exam Narrative: 1.Const: Well-nourished, Well-developed, appearing stated age 2.Eyes: PERRL, no conjunctival injection, and symmetrical lids. 3.ENT: Atraumatic external nose and ears. Moist MM. Neck: Symmetric, trachea midline, No thyromegaly. 4.CVS: +S1/S2, No murmurs or gallops. Peripheral pulses 2+ and equal in all extremities. Brisk capillary refill in all extremities. 5.RESP: Unlabored respiratory effort. Clear to auscultation bilaterally. No wheezes rales or rhonchi 6.GI: Soft, Nontender/Nondistended, No hepatosplenomegaly. No guarding or rebound. 7.MSK: Normocephalic/Atraumatic, Extremities w/o deformity or ttp No cyanosis or clubbing, Normal movement of all extremities. No calf tenderness. Negative Homans sign. 8.Skin: Warm, Dry. No rashes or lesions. 9.Neuro: guest services ambassador II-XII grossly intact. Sensation grossly intact, no focal neurologic deficits. 10.Psych: (AAO) x3. Appropriate mood and affect Course Vital Signs Temperature 36.4 C L 04/16/18 17:04 Pulse 102 H 04/16/18 17:04 Respiratory Rate 16 04/16/18 17:04 Blood Pressure 109/72 04/16/18 17:04 Pulse Oximetry 100 04/16/18 17:04 Temperature 36.4 C L 04/16/18 17:04 Temperature Source Skin 04/16/18 17:04 Pulse 102 H 04/16/18 17:04 Respiratory Rate 16 04/16/18 17:04 Blood Pressure 109/72 04/16/18 17:04 Blood Pressure Position Sitting 04/16/18 17:04 Pulse Oximetry 100 04/16/18 17:04 Oxygen Delivery Method Room Air 04/16/18 17:04 Oxygen Flow Rate 0 04/16/18 17:04 Pain Level 8 04/16/18 17:04
[2018-04-16 17:34] LABS: Abs Immature Grans 0.01 k/cumm (0.0-0.09); Absolute Basophil Count 0.01 k/cumm (0.0-0.2); Absolute Lymphocyte Count 3.86 k/cumm (1.2-3.4); Absolute Monocyte Count 0.63 k/cumm (0.11-0.7); Absolute Neutrophil Count 4.67 k/cumm (1.2-6.7); Basophils % 0.1; HCT 37.5 % (36.0-46.0); HGB 12.2 g/dL (12.0-15.5); Immature Grans % 0.1; Mean Corp. HGB Concentration 32.5 g/dL (32.0-36.0); Mean Corpuscular Hemoglobin 27.5 pg (27.0-33.0); Mean Corpuscular Volume 84.5 fL (80-95); Mean Platelet Volume 8.8 fL (8.0-11.0); Monocytes % 6.9; Neutrophils % 50.9; Platelet Count 358 x1000/uL (130-400); RBC 4.44 m/cumm (4.00-5.20); RBC Distribution Width 15.9 % (11.7-14.6); White Blood Cell Count 9.18 k/cumm (4.4-10.8)
[2018-04-16] MEDS: Normal Saline 1,000 ML 1000 ML IV (17:43)
[2018-04-16] MEDS: Ketorolac 30 MG/ML VIAL 15 MG IVP (17:43)
[2018-04-16 17:47] LABS: INR 0.9 (0.9-1.1); PTT Activated 24.5 sec (21.0-31.4); Prothrombin Time 8.9 sec (9.3-11.0)
[2018-04-16 17:49] LABS: ALT 17 U/L (12-78); AST 7 U/L (15-37); Albumin 4.1 g/dL (3.4-5.0); Alkaline Phosphatase 92 U/L (46-116); Anion Gap 10.7 mmol/L (3-11); BUN 12 mg/dL (7-18); Bilirubin, Total 0.2 mg/dL (0.2-1.0); CO2 23.3 mmol/L (21.0-32.0); CREATININE 0.96 mg/dL (0.55-1.02); Calcium 9.3 mg/dL (8.5-10.1); Chloride 105 mmol/L (98-107); Glucose 103 mg/dL (70-100); Potassium 3.6 mmol/L (3.5-5.1); Sodium 139 mmol/L (136-145)
[2018-04-16 17:53] LABS: Troponin I < 0.02 ng/mL (0.00-0.06)
[2018-04-16 17:56] LABS: TSH (W/Ref FT4) 2.77 uIU/mL (0.358-3.74)
[2018-04-16] MEDS: Normal Saline Flush 10 ML SYR IVP (18:24)
[2018-04-16] MEDS: Ondansetron 4 MG/2 ML VIAL (18:33)
--- NOTE | 2018-04-16 18:47 | DI.VRAD_ITS ---
EXAM: CT Angiography Chest With Contrast EXAM DATE/TIME: 04/16/2018 5:13 PM CLINICAL HISTORY: 27 years old, female; Pain; Chest pain; Type not specified; Patient HX: Cp, SOB TECHNIQUE: Axial computed tomographic angiography images of the chest with intravenous contrast using CT angiography protocol. Coronal and sagittal reformatted images were created and reviewed. MIP reconstructed images were created and reviewed. COMPARISON: No relevant prior studies available. FINDINGS: Pulmonary arteries: No evidence of pulmonary embolus to the segmental level. Aorta: No aneurysm of the aorta. No dissection of the aorta. Lungs: Bibasilar atelectasis Pleural space: Small right pleural effusion. Heart: Normal. No cardiomegaly. No pericardial effusion. Lymph nodes: Unremarkable. No enlarged lymph nodes. Bones/joints: Unremarkable. No acute fracture. Soft tissues: Unremarkable. IMPRESSION: 1. No evidence of pulmonary embolus to the segmental level. 2. No aneurysm of the aorta. 3. No dissection of the aorta. Dictated and Authenticated by: Balbir Danielle MD. Ordering:REFUGIO Burden MD
[2018-04-16 21:17] LABS: Troponin I < 0.02 ng/mL (0.00-0.06)
== END 2018-04-16 21:36 | disposition home or self-care (01) ==
PROVIDERS: Emergency Provider Student in an Organized Health Care Education/Training Program; PCP Internal Medicine
DX: R07.2 Precordial pain (principal); R07.9 Chest pain, unspecified
CPT/HCPCS: 36415; 71275; 80053; 93005; 96361; 96374; 99285; 84443; 84484; 85025; 85610; 85730; 93010; J1885; J2405

== ENCOUNTER 2018-04-27 17:29 | Emergency (ER) | payer MEDICAID, SELFPAY ==
[2018-04-27 17:40] VITALS: BP 117/78; PULSE 117; RESP 18; TEMP 36.8; O2SAT 97
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
--- NOTE | 2018-04-27 18:21 | NUR.NOTE ---
Eileen from into examine patient. Nursing Note:
[2018-04-27] MEDS: Acetaminophen 325 MG TAB 650 MG PO ×2 (18:47→20:56)
[2018-04-27 18:49] LABS: Abs Immature Grans 0.06 k/cumm (0.0-0.09); Absolute Basophil Count 0.02 k/cumm (0.0-0.2); Absolute Lymphocyte Count 3.12 k/cumm (1.2-3.4); Absolute Monocyte Count 0.79 k/cumm (0.11-0.7); Basophils % 0.2; HCT 33.4 % (36.0-46.0); HGB 11.2 g/dL (12.0-15.5); Immature Grans % 0.7; Lymphocytes % 36.7; Mean Corp. HGB Concentration 33.5 g/dL (32.0-36.0); Mean Corpuscular Hemoglobin 28.4 pg (27.0-33.0); Mean Corpuscular Volume 84.8 fL (80-95); Mean Platelet Volume 8.1 fL (8.0-11.0); Monocytes % 9.3; Neutrophils % 53.1; Platelet Count 340 x1000/uL (130-400); RBC 3.94 m/cumm (4.00-5.20); RBC Distribution Width 16.4 % (11.7-14.6); White Blood Cell Count 8.49 k/cumm (4.4-10.8)
--- NOTE | 2018-04-27 18:55 | NUR.NOTE ---
patiient report given to DAVID RN Nursing Note:
[2018-04-27 19:04] LABS: Anion Gap 13.1 mmol/L (3-11); BUN 14 mg/dL (7-18); CO2 18.9 mmol/L (21.0-32.0); CREATININE 0.86 mg/dL (0.55-1.02); Calcium 8.9 mg/dL (8.5-10.1); Chloride 107 mmol/L (98-107); Glucose 105 mg/dL (70-100); Potassium 3.4 mmol/L (3.5-5.1); Sodium 139 mmol/L (136-145)
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
[2018-04-27 19:08] LABS: ETHANOL BLOOD < 3.0 mg/dL (<3)
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
[2018-04-27 19:29] LABS: *AMPHETAMINES SCREEN URINE Negative (Negative); *BARBITURATES SCREEN URINE Negative (Negative); *BENZODIAZEPINES SCREEN URINE Negative (Negative); Cannabinoids THC Negative (Negative); Cocaine Screen,Urine Negative (Negative); METHADONE URINE SCREEN Negative (Negative); OPIATES URINE SCREEN Negative (Negative)
[2018-04-27 19:31] LABS: Tricyclic Antidepressants POSITIVE (Negative)
--- NOTE | 2018-04-27 20:14 | NUR.NOTE ---
Nursing Note: gave 2000 hrs meds from pt's hector box with date of 04/19/18, meds being given due to pt hospitalized [facility] per guardian jett gomez and dr. acosta
--- NOTE | 2018-04-27 20:37 | PDOC.ERCMPRO ---
- If Service Date Differs Date of service: 04/27/18 Time of Service: 20:37 Care Management Progress Note S/O: Mary was brought to the ED this evening by her caregivers. She reports suicidal ideation at time of admission to the ED. Mary has had multiple visits to the ED in the past 6 months she has a history of SI, Depression, and PTSD. She reports to [facility] crisis that she has been having flashbacks and suicidal thoughts and it was determine she will need placement for psychiatric stabilization. MELANY met with Mary at the bedside she is alert and makes good eye contact. She agrees with the safety plan at this time and does not have any questions this evening. VOLUNTARY FOR INPATIENT PSYCHIATRIC STABILIZATION. Current behaviors: Mary has been cooperative and appropriate in all interactions since arriving at [facility]; she has demonstrated appropriate coping and communication skills, has articulated her needs and concerns and is fully engaged during staff interactions. Huddle Participants: Ashely Paredes RN, Eileen Alexander, [facility], Eli Vargas RN supervisor insulation, Deanna Jones RN, CM 04/27/18 @ 2019 Safety plan has been established with patient, and care team, to adhere to patient goals, identify restrictions based on behavioral status, address nutrition, and determine allowed personal belongings, tools for hygiene and personal care. Determine level of activity including ambulation, level of supervision, visitors, and determine privileges based on behaviors and level of engagement by pt. SAFETY PLAN: 1. Will remain on suicide precautions and in paper clothes. 2. Will remain in room under direct supervision of one-on-one staff at all times provided by CESAR, JAVY behaviorist. 3. May have paper cups, plates, finger foods as well as a metal spoon with which to eat meals. [facility] staff will be responsible for accounting of utensils after meals. 4. Follow [facility] Management of the Admitted Behavioral Health Patient policy. 5. Comfort bath system only. 6. No personal belongings 7. Visitors - Candace Romero (Guardian) 8. Activities - Mary will be provided crayons and paper as this is therapeutic for her. 9. Bathroom privileges - CPSO to stand outside of bathroom 10. Mary to remain in the ER at this time until a bed becomes available. Placement: Referrals have been faxed to [facility], [place] and [place]. [facility] and report bed availability and are reviewing referral. Mary will transport by [facility]'s department once bed is identified to be coordinated by Guardian Clarita Romero will need notification of transfer [phone]. Patient is currently voluntarily at [facility] and seeking inpatient admission when a bed becomes available. [facility] Frontline Mri Technologist will continue seeking placement. Please contact the Licensed Therapist Dietary Director ([phone]) and [facility] Mri Technologist ([phone]) for any needed changes in the Safety Plan. Safety plan has been provided to interdepartmental care team including Clinical Coordinator, Nursing Parish Worker.
--- NOTE | 2018-04-27 20:54 | CMPROGNOTE_ITS ---
- If Service Date Differs Date of service: 04/27/18 Time of Service: 20:37 Care Management Progress Note S/O: Mary was brought to the ED this evening by her caregivers. She reports suicidal ideation at time of admission to the ED. Mary has had multiple visits to the ED in the past 6 months she has a history of SI, Depression, and PTSD. She reports to [facility] crisis that she has been having flashbacks and suicidal thoughts and it was determine she will need placement for psychiatric stabilization. MELANY met with Mary at the bedside she is alert and makes good eye contact. She agrees with the safety plan at this time and does not have any questions this evening. VOLUNTARY FOR INPATIENT PSYCHIATRIC STABILIZATION. Current behaviors: Mary has been cooperative and appropriate in all interactions since arriving at [facility]; she has demonstrated appropriate coping and communication skills, has articulated her needs and concerns and is fully engaged during staff interactions. Huddle Participants: Ashely Paredes RN, Eileen Alexander, [facility], Eli Vargas RN supervisor front, Deanna Jones RN, CM 04/27/18 @ 2019 Safety plan has been established with patient, and care team, to adhere to patient goals, identify restrictions based on behavioral status, address nutrition, and determine allowed personal belongings, tools for hygiene and personal care. Determine level of activity including ambulation, level of supervision, visitors, and determine privileges based on behaviors and level of engagement by pt. SAFETY PLAN: 1. Will remain on suicide precautions and in paper clothes. 2. Will remain in room under direct supervision of one-on-one staff at all times provided by CESAR, JAVY payroll benefits administrator. 3. May have paper cups, plates, finger foods as well as a metal spoon with which to eat meals. [facility] staff will be responsible for accounting of utensils after meals. 4. Follow [facility] Management of the Admitted Behavioral Health Patient policy. 5. Comfort bath system only. 6. No personal belongings 7. Visitors - Candace Romero (Guardian) 8. Activities - Mary will be provided crayons and paper as this is therapeutic for her. 9. Bathroom privileges - CPSO to stand outside of bathroom 10. Mary to remain in the ER at this time until a bed becomes available. Placement: Referrals have been faxed to [facility], [place] and [place]. [facility] and report bed availability and are reviewing referral. Mary will transport by [facility]'s department once bed is identified to be coordinated by Guardian Clarita Romero will need notification of transfer [phone]. Patient is currently voluntarily at [facility] and seeking inpatient admission when a bed becomes available. [facility] Frontline Plastic Surgery Assistant will continue seeking placement. Please contact the Game Attendant Inspector Final Assembly Mechanical ([phone]) and [facility] Plastic Surgery Assistant ([phone]) for any needed changes in the Safety Plan. Safety plan has been provided to interdepartmental care team including Clinical Coordinator, Nursing Greenskeeper.
--- NOTE | 2018-04-28 05:39 | NUR.NOTE ---
Nursing Note: [facility] has called to say pt will be added to census on [facility] unit for 04/28/18. Lab results faxed at [phone], [facility] will arrange doc to doc.
--- NOTE | 2018-04-28 09:05 | NUR.NOTE ---
took am meds from blister packsvitamin B2 400mg, topramate 125mg, bisacodyl 10mg, clozapine 100mg, duloxetine 30mg, fish oil, guanfacine 2mg, mag oxide 400mg, metformin 850mg, oxcarbazepine 450mg,quetiapine 100mg. Nursing Note:
[2018-04-28 09:16] VITALS: BP 103/65; PULSE 85; RESP 16; TEMP 37; O2SAT 95
--- NOTE | 2018-04-28 09:29 | DI.RAD_ITS ---
SYMPTOM/DIAGNOSIS: COUGH PA AND LATERAL CHEST: The exam is limited by poor inspiration on the PA view. The heart size is normal. The lungs appear clear. IMPRESSION: Limited exam. : No acute abnormality.
--- NOTE | 2018-04-28 10:25 | DI.VRAD_ITS ---
EXAM: XR Chest, 2 Views EXAM DATE/TIME: 04/28/2018 9:53 AM CLINICAL HISTORY: 27 years old, female; Cough TECHNIQUE: XR of the chest, 2 views. COMPARISON: CT chest PE CTA 04/16/2018 5:55 PM FINDINGS: Lungs: Poor inspiration was diminished lung volumes. No focal peripheral lung consolidation, air bronchogram formation, or silhouette sign. Pleural space: No pleural effusion or pneumothorax. Heart/Mediastinum: The heart is not enlarged. The mediastinal contours are normal. Bones/joints: No acute osseous abnormality. IMPRESSION: No pneumonia. Dictated and Authenticated by: Jay Castellano MD. Ordering:JUAN CARLOS Leiva MD
[2018-04-28 11:55] VITALS: BP 103/65; PULSE 85; RESP 16; TEMP 37; O2SAT 95
== END 2018-04-28 11:54 | disposition still patient (30) ==
PROVIDERS: Physician Assistant; Emergency Provider Student in an Organized Health Care Education/Training Program
DX: F43.11 Post-traumatic stress disorder, acute (principal); R45.851 Suicidal ideations; F32.9 Major depressive disorder, single episode, unspecified; Z75.1 Person awaiting admission to adequate facility elsewhere; E11.9 Type 2 diabetes mellitus without complications; Z79.84 Long term (current) use of oral hypoglycemic drugs
CPT/HCPCS: 36415; 80048; 80307; 81025; 99285; 71046; 80320; 85025

== ENCOUNTER 2018-05-11 21:45 | Inpatient (IN) | payer MEDICAID, SELFPAY ==
[2018-05-11 21:55] VITALS: BP 116/75; PULSE 80; RESP 18; TEMP 36.5; O2SAT 95
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
[2018-05-11 22:39] LABS: HCT 32.2 % (36.0-46.0); HGB 10.2 g/dL (12.0-15.5); Mean Corp. HGB Concentration 31.7 g/dL (32.0-36.0); Mean Corpuscular Hemoglobin 27.2 pg (27.0-33.0); Mean Corpuscular Volume 85.9 fL (80-95); Mean Platelet Volume 8.4 fL (8.0-11.0); Platelet Count 330 x1000/uL (130-400); RBC 3.75 m/cumm (4.00-5.20); RBC Distribution Width 15.8 % (11.7-14.6); White Blood Cell Count 9.88 k/cumm (4.4-10.8)
[2018-05-11 22:51] LABS: ALT 15 U/L (12-78); AST 10 U/L (15-37); Albumin 3.4 g/dL (3.4-5.0); Alkaline Phosphatase 81 U/L (46-116); Anion Gap 12.9 mmol/L (3-11); BUN 16 mg/dL (7-18); Bilirubin, Total 0.1 mg/dL (0.2-1.0); CO2 20.1 mmol/L (21.0-32.0); CREATININE 0.89 mg/dL (0.55-1.02); Calcium 8.6 mg/dL (8.5-10.1); Chloride 107 mmol/L (98-107); Glucose 98 mg/dL (70-100); Potassium 3.5 mmol/L (3.5-5.1); Sodium 140 mmol/L (136-145); Total Protein 7.1 g/dL (6.4-8.2)
--- NOTE | 2018-05-11 23:06 | NUR.NOTE ---
Addendum entered by Ginny Romero 05/12/18 07:07: Report given to Valeri WEIR. CPSO has changed shift and is in direct observation 1:1. Original Note: Addendum entered by Ginny Romero 05/12/18 06:29: Pt appears to be sleeping, CPSO at bedside 1:1 direct observation. Pt's med box here with pt. Patient belongings secured behind desk, labeled in bag from previous nurse. Original Note: Addendum entered by Ginny Romero 05/12/18 05:41: Pt making own positional changes in bed, appears to be sleeping. RR even and unlabored. CPSO remains 1:1 in direct observation. Original Note: Addendum entered by Ginny Romero 05/12/18 04:08: Offered CPSO break. Remains 1:1 direct observation with pt in room. Pt appears to be sleeping. Eyes closed, good color. RR even and unlabored. Original Note: Addendum entered by Ginny Romero 05/12/18 03:15: CPSO remains 1:1 direct observation in room. Pt appears to be sleeping. No changes noted. RR even and unlabored at approx 16. Original Note: Addendum entered by Ginny Romero 05/12/18 02:17: Pt left side lying in bed, eyes closed. RR even and unlabored. Good color noted. CPSO at bedside, 1:1 direct observation continues. Original Note: Addendum entered by Ginny Romero 05/12/18 01:23: Pt in bed, appears to be sleeping. Supine, eyes closed. RR even and unlabored. CPSO remains 1:1 at bedside. Original Note: Addendum entered by Ginny Romero 05/12/18 00:20: CPSO remains 1:1 with pt in room. Pt in bed with eyes closed, RR even and unlabored. Original Note: Nursing Note: Report received from CLARIBEL WEIR. Care assumed at this time. CPSO direct observation 1:1. Pt currently in room with mental health and home provider. Alert, cooperative, quiet. Given food and drink.
[2018-05-11 23:09] LABS: ETHANOL BLOOD < 3.0 mg/dL (<3)
[2018-05-11 23:12] LABS: Salicylate 4.6 mg/dL (2.8-20.0)
[2018-05-11 23:15] LABS: Acetaminophen < 2 ug/mL (10-30)
[2018-05-11 23:21] LABS: Bilirubin Small (Negative); Blood Trace-lysed (Negative); Clarity Clear; Glucose Negative (Negative); Ketones 15 mg/dL (Negative); Leukocyte Esterase Trace (Negative); Nitrite Negative (Negative); Specific Gravity >= 1.030 (1.005-1.025); Urobilinogen 0.2 EU/dL (Up TO 0.2); pH 5.5 (5-8)
[2018-05-11 23:30] LABS: *AMPHETAMINES SCREEN URINE Negative (Negative); *BARBITURATES SCREEN URINE Negative (Negative); *BENZODIAZEPINES SCREEN URINE Negative (Negative); Bacteria Rare HPF (Negative); Cannabinoids THC Negative (Negative); Cocaine Screen,Urine Negative (Negative); Epithelial Cells Moderate HPF (Negative); METHADONE URINE SCREEN Negative (Negative); OPIATES URINE SCREEN Negative (Negative); RBC 0-2 (0-2); WBC 0-2 HPF (0-5)
[2018-05-11 23:31] LABS: C & S Indicated? No/Sq. Contamination; Casts Negative LPF (Negative); Crystals Many Calcium Oxalate HPF (Negative); Mucus Negative (Negative)
--- NOTE | 2018-05-11 23:36 | PDOC.MHCN ---
Date of service: 05/11/18 Time of Service: 23:36 Mental Health Crisis Note Presenting Issue How did you arrive at the ED and why did you come: Mary arrived to the emergency room via ambulance due to she cutting her wrist in an effort to commit suicide. Precipitating Factors Mary reports she has been thinking about her father a lot. She reports getting depressed over his loss when she thinks about it. She is an active cutter and has had multiple suicide attempts and hospitalizations. She is unable to contract for safety and her caregivers report having difficulty managing her symptoms due to changes in agitation when staff intervene. She also has been threatening to hurt herself or others by saying, the police will have to fight me when they come. These behaviors are not typical responses. These abrupt behavioral changes with her history of impulsivity are making it difficult for she and her senior administrator support to contract for safety or feel safe. Disposition BEHAVIOR: melancholic to sullen EYE CONTACT: poor MOOD: depressed AFFECT: flat APPETITE: good SLEEP(trouble falling/staying asleep: reports no night terrors, so issues falling asleep or staying asleep are not reported at this time Plan Mary will stay at [facility] until a bed placement is available. Recommendations of a step-down bed due to pattern of hospitalizations seems appropriate based on adjustment issues and increased difficulty symptoms of depression have become on caregivers from the last few hospitalizations.
[2018-05-11 23:41] LABS: Tricyclic Antidepressants POSITIVE (Negative)
--- NOTE | 2018-05-11 23:48 | PDOC.MHCN_ITS ---
Date of service: 05/11/18 Time of Service: 23:36 Mental Health Crisis Note Presenting Issue How did you arrive at the ED and why did you come: Mary arrived to the emergency room via ambulance due to she cutting her wrist in an effort to commit suicide. Precipitating Factors Mary reports she has been thinking about her father a lot. She reports getting depressed over his loss when she thinks about it. She is an active cutter and has had multiple suicide attempts and hospitalizations. She is unable to contract for safety and her caregivers report having difficulty managing her symptoms due to changes in agitation when staff intervene. She also has been threatening to hurt herself or others by saying, the police will have to fight me when they come. These behaviors are not typical responses. These abrupt behavioral changes with her history of impulsivity are making it difficult for she and her business support liaison to contract for safety or feel safe. Disposition BEHAVIOR: melancholic to sullen EYE CONTACT: poor MOOD: depressed AFFECT: flat APPETITE: good SLEEP(trouble falling/staying asleep: reports no night terrors, so issues falling asleep or staying asleep are not reported at this time Plan Mary will stay at [facility] until a bed placement is available. Recommendations of a step-down bed due to pattern of hospitalizations seems appropriate based on adjustment issues and increased difficulty symptoms of depression have become on caregivers from the last few hospitalizations.
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
--- NOTE | 2018-05-12 10:30 | PDOC.MHCN ---
Date of service: 05/12/18 Time of Service: 10:30 Mental Health Crisis Note Presenting Issue How did you arrive at the ED and why did you come: She arrived at the emergency room last night following a suicide attempt. She was brought in with snf staff for the screening Precipitating Factors Mary presents with anhedonia, delayed thought process, sadness, suicidal ideation, planning, and intent. She has engaged in impulsive self-harming behaviors such as cutting. She also is unable to contract for safety and has become a management difficulty with the snf staff. This unpredictabilty along with persistent symptoms of depression indicate she may need a higher level of care for stabilization and potentially a step-down bed for her to stabilize in. She has been hospitalized several times during the last four months and remains vulnerable to internal and external triggers/stressors. Disposition BEHAVIOR: melancholic EYE CONTACT: poor MOOD: depressed AFFECT: flat APPETITE: fair SLEEP(trouble falling/staying asleep: history of night terrors, but reports she has been sleeping better Plan Mary will stay at [facility]. A referral for voluntary admission has been made to [facility]. She is too acute for [facility] and [facility] other [facility] at [facility]. She may benefit from a step-down bed to help with stabilization following a hospitalization. Recommendations for or a potential [facility] step down bed have been made at this time. Signature Clinician's Name/Title: [facility]
--- NOTE | 2018-05-12 10:46 | PDOC.MHCN_ITS ---
Date of service: 05/12/18 Time of Service: 10:30 Mental Health Crisis Note Presenting Issue How did you arrive at the ED and why did you come: She arrived at the emergency room last night following a suicide attempt. She was brought in with detention staff for the screening Precipitating Factors Mary presents with anhedonia, delayed thought process, sadness, suicidal ideation, planning, and intent. She has engaged in impulsive self-harming behaviors such as cutting. She also is unable to contract for safety and has become a management difficulty with the detention staff. This unpredictabilty along with persistent symptoms of depression indicate she may need a higher level of care for stabilization and potentially a step-down bed for her to stabilize in. She has been hospitalized several times during the last four months and remains vulnerable to internal and external triggers/stressors. Disposition BEHAVIOR: melancholic EYE CONTACT: poor MOOD: depressed AFFECT: flat APPETITE: fair SLEEP(trouble falling/staying asleep: history of night terrors, but reports she has been sleeping better Plan Mary will stay at [facility]. A referral for voluntary admission has been made to [facility]. She is too acute for [facility] and there are not other beds in the [facility] at this time. She may benefit from a step-down bed to help with stabilization following a hospitalization. Recommendations for or a potential [facility] step down bed have been made at this time. Signature Clinician's Name/Title: [facility]ill [facility]
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
[2018-05-12] MEDS: Nicotine 21 MG/24 HR PATCH TD (16:56)
[2018-05-12] MEDS: Acetaminophen 325 MG TAB PO ×2 (16:57→21:29)
[2018-05-12 17:00] VITALS: BP 107/69; PULSE 88; RESP 20; TEMP 37.2; O2SAT 96
[2018-05-12] MEDS: Topiramate 100 MG TAB 125 MG PO (20:28)
[2018-05-12] MEDS: QUEtiapine 100 MG TAB PO (20:29)
[2018-05-12] MEDS: Docusate Sodium 100 MG CAP PO (20:29)
[2018-05-12] MEDS: Omega-3 Fatty Acids 1000 MG CAP PO (20:29)
[2018-05-12] MEDS: OXcarbazepine 150 MG TAB 450 MG PO (21:55)
[2018-05-12] MEDS: Prazosin 2 MG CAP PO (21:55)
[2018-05-12 23:02] VITALS: BP 110/68; PULSE 77; RESP 17; TEMP 36.8; O2SAT 94
[2018-05-13 07:55] VITALS: BP 101/63; PULSE 90; RESP 20; TEMP 37; O2SAT 96
[2018-05-13] MEDS: Nicotine 21 MG/24 HR PATCH TD (08:26)
[2018-05-13] MEDS: OXcarbazepine 150 MG TAB 450 MG PO ×2 (08:27→19:33)
[2018-05-13] MEDS: Magnesium Oxide 400 MG TAB PO (08:27)
[2018-05-13] MEDS: QUEtiapine 100 MG TAB PO ×2 (08:27→19:33)
[2018-05-13] MEDS: Omega-3 Fatty Acids 1000 MG CAP PO ×2 (08:27→19:33)
[2018-05-13] MEDS: Bisacodyl 5 MG TABEC 10 MG PO (08:28)
[2018-05-13] MEDS: Docusate Sodium 100 MG CAP PO ×2 (08:28→19:33)
[2018-05-13] MEDS: DULoxetine 30 MG CAP PO (08:28)
[2018-05-13] MEDS: Omeprazole 20 MG CAPCR PO (08:28)
[2018-05-13] MEDS: guanFACINE 1 MG TAB 2 MG PO (08:28)
[2018-05-13] MEDS: Fluticasone NASAL SPRAY 16 GM BTL NS (08:41)
[2018-05-13 09:10] VITALS: O2SAT 97
--- NOTE | 2018-05-13 09:13 | W.INMHPGNOTE ---
Date of service: 05/13/18 Time of Service: 09:13 Mental Health Crisis Note Presenting Issue How did you arrive at the ED and why did you come: Mary has been held at [facility] for over 24 hours due to a suicide attempt/via cutting her wrist two nights ago. She reports she has had persistent suicidal ideation for 10 out of 14 days (approximately) since her discharge from [facility] approximately two weeks ago. Precipitating Factors Mary has a history of severe and persistent depression. She can be impulsive when she is triggered. She reports she has had slowed thought process. This slow thought process perseverates on loss of her father and multiple self-esteem issues that may relate to social and/or supervision stressors that relate to her need for assisted living and guardianship. From this, she has minimal social contacts. She self-reports feeling hopeless. As a result, she is reporting I know I will cut if I leave here. She identified cutting and overdosing as plans. With her thoughts fixated on loss of her father and the slowed thinking to fixated thought process identified, she reports she is suicidal and cannot trust herself to be safe. Disposition BEHAVIOR: cooperative, trying to be honest, and willing to discuss questions asked of her to clarify her level of depression and treatment complexities that have arisen for her EYE CONTACT: fair MOOD: depressed AFFECT: flat APPETITE: no problems with appetite reported SLEEP(trouble falling/staying asleep: none reported Plan [facility] will continue to collaborate with designated hospitals in hopes of finding a bed placement.
[2018-05-13] MEDS: Budesonide/Formoterol 80/4.5 6.9 GM 60 PUFF INH IH ×2 (09:15→19:33)
--- NOTE | 2018-05-13 09:24 | MHPN_ITS ---
Date of service: 05/13/18 Time of Service: 09:13 Mental Health Crisis Note Presenting Issue How did you arrive at the ED and why did you come: Mary has been held at [facility] for over 24 hours due to a suicide attempt/via cutting her wrist two nights ago. She reports she has had persistent suicidal ideation for 10 out of 14 days (approximately) since her discharge from [facility] approximately two weeks ago. Precipitating Factors Mary has a history of severe and persistent depression. She can be impulsive when she is triggered. She reports she has had slowed thought process. This slow thought process perseverates on loss of her father and multiple self-esteem issues that may relate to social and/or supervision stressors that relate to her need for assisted living and guardianship. From this, she has minimal social contacts. She self-reports feeling hopeless. As a result, she is reporting I know I will cut if I leave here. She identified cutting and overdosing as plans. With her thoughts fixated on loss of her father and the slowed thinking to fixated thought process identified, she reports she is suicidal and cannot trust herself to be safe. Disposition BEHAVIOR: cooperative, trying to be honest, and willing to discuss questions asked of her to clarify her level of depression and treatment complexities that have arisen for her EYE CONTACT: fair MOOD: depressed AFFECT: flat APPETITE: no problems with appetite reported SLEEP(trouble falling/staying asleep: none reported Plan [facility] will continue to collaborate with designated hospitals in hopes of finding a bed placement.
--- NOTE | 2018-05-13 09:32 | CMPROGNOTE_ITS ---
Care Management Progress Note PMH: ADHD, Asthma, Borderline personality disorder, constipation, nicotene dependence-current everyday smoker (1.5PPD/Vape), hx of self injury, major depressive disorder with SI, DM type 2 in obese non insulin dependent, GERD, ODD, PTSD, honey bee venom and mushroom allergies Safety plan has been established with patient, and care team, to adhere to patient goals, identify restrictions based on behavioral status, address nutrition, and determine allowed personal belongings, tools for hygiene and personal care. Determine level of activity including ambulation, level of supervision, visitors, and determine privileges based on behaviors and level of engagement by pt. Mary continues to be appropriate in behavior and has been ambulating through the hallways intermittently. She asked appropriate questions regarding process timing, and responded appropriately to answers. SAFETY PLAN: 1. Will remain on suicide precautions and in paper clothes. 2. Will remain in room under direct supervision of one-on-one staff at all times provided by CESAR, MANAGER EDITORIAL senior design engineer. 3. May have paper cups, plates, finger foods as well as a metal spoon with which to eat meals. [facility] staff will be responsible for accounting of utensils after meals. 4. Follow [facility] Management of the Admitted Behavioral Health Patient policy. 5. May have use of shower room with escort. 6. No personal belongings 7. Visitors - Candace Romero (Guardian) 8. Activities - Mary will be provided crayons and paper as this has been identified as one of her therapeutic coping tools. 9. Mary may ambulate in the hallways with escort at RN discretion. Placement: [facility] has been accepted by for tomorrow and WILLIAM has been requested to be completed this evening. provided contacts for daytime and nighttime [facility] Hospitalist and notified who requested not ification once WILLIAM is complete. Mary will [facility] once bed is identified to be coordinated by . Guardian Clarita Romero will need notification of transfer [phone]. Patient is currently voluntarily at [facility] and seeking inpatient admission when a bed becomes available. [facility] Frontline Sales Consulting Director will continue seeking placement. Please contact the Automatic Maintainer Public Health Nutritionist ([phone]) and [facility] Sales Consulting Director ([phone]) for any needed changes in the Safety Plan. Safety plan has been provided to interdepartmental care team including Clinical Coordinator, Nursing It Project Manager.
[2018-05-13] MEDS: Topiramate 50 MG TAB 125 MG PO ×2 (10:12→19:33)
[2018-05-13] MEDS: Acetaminophen 325 MG TAB PO ×2 (10:35→16:23)
[2018-05-13 11:25] VITALS: BP 100/67; PULSE 83; RESP 18; TEMP 36.4; O2SAT 95
[2018-05-13 15:11] VITALS: BP 129/83; PULSE 91; RESP 18; TEMP 36.7; O2SAT 97
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
--- NOTE | 2018-05-13 15:30 | NUR.NOTE ---
pt complaining of right sided chest/abd pain. VVS. Awaiting for EKG and Chest CT. Nursing Note:
--- NOTE | 2018-05-13 16:00 | DI.RAD_ITS ---
SYMPTOMS/DIAGNOSIS: CP, SUICIDAL IDEATION CHEST X-RAY, PA AND LATERAL: Comparison is 04/28/18. The heart is normal in size. The lungs are clear. The mediastinal structures and pleura appear intact. IMPRESSION: Normal chest.
--- NOTE | 2018-05-13 17:20 | DI.VRAD_ITS ---
EXAM: XR Chest, 2 Views EXAM DATE/TIME: 05/13/2018 4:42 PM CLINICAL HISTORY: 27 years old, female; Pain; Chest pain; Type not specified TECHNIQUE: XR of the chest, 2 views. COMPARISON: CR XR CHEST 2V PA LATERAL 04/28/2018 9:50 AM FINDINGS: No airspace consolidation, pleural effusion or pneumothorax. The cardiomediastinal silhouette is unremarkable. IMPRESSION: No acute findings. Dictated and Authenticated by: Miguel Randhawa MD. Ordering:DIONISIO Basurto MD
[2018-05-13] MEDS: Prazosin 1 MG CAP (20:37)
[2018-05-13] MEDS: SUMAtriptan 50 MG TAB 100 MG PO (20:38)
[2018-05-13 21:55] VITALS: BP 124/65; PULSE 72; RESP 17; TEMP 36.7; O2SAT 96
[2018-05-14 07:30] VITALS: BP 94/62; PULSE 79; RESP 16; TEMP 36.7; O2SAT 95
[2018-05-14] MEDS: Fluticasone NASAL SPRAY 16 GM BTL NS (07:55)
[2018-05-14] MEDS: Magnesium Oxide 400 MG TAB PO (07:56)
[2018-05-14] MEDS: Nicotine 21 MG/24 HR PATCH TD (07:56)
[2018-05-14] MEDS: OXcarbazepine 150 MG TAB 450 MG PO (07:57)
[2018-05-14] MEDS: Topiramate 50 MG TAB 125 MG PO (07:58)
[2018-05-14] MEDS: guanFACINE 1 MG TAB 2 MG PO (07:58)
[2018-05-14] MEDS: Omeprazole 20 MG CAPCR PO (08:00)
[2018-05-14] MEDS: Omega-3 Fatty Acids 1000 MG CAP PO (08:00)
[2018-05-14] MEDS: Bisacodyl 5 MG TABEC 10 MG PO (08:00)
[2018-05-14] MEDS: QUEtiapine 100 MG TAB PO (08:00)
[2018-05-14] MEDS: Docusate Sodium 100 MG CAP PO (08:01)
[2018-05-14] MEDS: DULoxetine 30 MG CAP PO (08:01)
[2018-05-14 09:23] VITALS: O2SAT 98
[2018-05-14] MEDS: Budesonide/Formoterol 80/4.5 6.9 GM 60 PUFF INH IH (09:26)
[2018-05-14] MEDS: SUMAtriptan 50 MG TAB 100 MG PO (10:13)
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
[2018-05-14 12:10] LABS: Abs Immature Grans 0.03 k/cumm (0.0-0.09); Absolute Basophil Count 0.01 k/cumm (0.0-0.2); Absolute Lymphocyte Count 2.49 k/cumm (1.2-3.4); Absolute Monocyte Count 0.52 k/cumm (0.11-0.7); Absolute Neutrophil Count 4.04 k/cumm (1.2-6.7); Basophils % 0.1; HCT 34.8 % (36.0-46.0); HGB 11.2 g/dL (12.0-15.5); Immature Grans % 0.4; Lymphocytes % 35.1; Mean Corp. HGB Concentration 32.2 g/dL (32.0-36.0); Mean Corpuscular Hemoglobin 27.5 pg (27.0-33.0); Mean Corpuscular Volume 85.5 fL (80-95); Mean Platelet Volume 8.3 fL (8.0-11.0); Monocytes % 7.3; Neutrophils % 57.1; Platelet Count 356 x1000/uL (130-400); RBC 4.07 m/cumm (4.00-5.20); RBC Distribution Width 15.4 % (11.7-14.6); White Blood Cell Count 7.09 k/cumm (4.4-10.8)
--- NOTE | 2018-05-14 12:23 | PDOC.CMDIS ---
- If Service Date Differs Date of service: 05/14/18 Time of Service: 12:23 LACE Index Scoring Tool - Questions: Length of Stay (in days): 3 Acuity (Admit via E.D.?): Yes Comorbidities: Diabetes w/o Complication E.D. Visits: 7 - Answers: Total Score: 11 Risk of Readmission: High Risk Care Management Discharge Reason for Hospitalization: Suicidal Ideation Discharge Plan: Mary has been accepted at [facility]. CM notified Ramy Burgos, security, whom will arrange for [facility] transport. Notified Tayla, Maintenance Manager, whom will notify CARMELLA Christensen, and [employer] Arellano [employer], of time and mode of transport. DESHAUN Basurto, aware of the above and has completed DC paperwork. CM contacted Candace Romero, guardian, and notified her of the above, Candace is in agreement with DC to [facility]. Patient/Family Education Needs: Review DC instructions, any limitations, and discuss 'Ask Me Three' Services Needed at Discharge: Psychiatric Facility ([place]), Transportation ([facility])
--- NOTE | 2018-05-14 12:29 | CMDISCH_ITS ---
- If Service Date Differs Date of service: 05/14/18 Time of Service: 12:23 LACE Index Scoring Tool - Questions: Length of Stay (in days): 3 Acuity (Admit via E.D.?): Yes Comorbidities: Diabetes w/o Complication E.D. Visits: 7 - Answers: Total Score: 11 Risk of Readmission: High Risk Care Management Discharge Reason for Hospitalization: Suicidal Ideation Discharge Plan: Mary has been accepted at [facility]. CM notified Ramy Burgos, security, whom will arrange for [facility] transport. Notified Tayla, Wardrobe Technician, whom will notify CARMELLA Christensen, and [employer] [facility] [employer], of time and mode of transport. DESHAUN Basurto, aware of the above and has completed DC paperwork. CM contacted Candace Romero, guardian, and notified her of the above, Candace is in agreement with DC to [facility]. Patient/Family Education Needs: Review DC instructions, any limitations, and discuss 'Ask Me Three' Services Needed at Discharge: Psychiatric Facility ([place]), Transportation ([facility])
== END 2018-05-14 12:24 | disposition short-term general hospital (02) | DRG 881 ==
LOC: ER 05-12 15:40 → MS 05-12 16:24
PROVIDERS: Emergency Medicine; Nurse Practitioner Family; Admitting Provider Internal Medicine; Emergency Provider Student in an Organized Health Care Education/Training Program; Visit Provider Internal Medicine
DX: F32.9 Major depressive disorder, single episode, unspecified (principal); R45.851 Suicidal ideations; F41.9 Anxiety disorder, unspecified; F43.12 Post-traumatic stress disorder, chronic; G43.909 Migraine, unspecified, not intractable, without status migrainosus; J45.909 Unspecified asthma, uncomplicated; F17.210 Nicotine dependence, cigarettes, uncomplicated; E11.9 Type 2 diabetes mellitus without complications; E66.9 Obesity, unspecified; K21.9 Gastro-esophageal reflux disease without esophagitis; Z62.810 Personal history of physical and sexual abuse in childhood; Z79.84 Long term (current) use of oral hypoglycemic drugs; Z68.33 Body mass index [BMI] 33.0-33.9, adult
CPT/HCPCS: 36415; 80053; 80307; 81025; 85027; 94640; 99223; 99233; 99239; 99285; 71046; 80320; 80329; 81003; 81015; 85025; 99283

== ENCOUNTER 2022-09-23 14:56 | Emergency (ER) | payer MEDICARE, MEDICAID, SELFPAY ==
[2022-09-23 15:05] VITALS: BP 130/116; PULSE 120; RESP 18; TEMP 37; O2SAT 99
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
--- NOTE | 2022-09-23 15:45 | RT.EKG_ITS ---
APPROVED REPORT Exam: Resting ECG Reason for Exam: Qt monitoring Patient Location: E HR:93 bpm ECG Measurements Heart Rate 93 AXIS NC 147 P 26 QRSd 78 QRS 39 QT 320 T 39 QTc 399 Conclusion Sinus rhythm...normal P axis, V-rate 60- 99 Low voltage, precordial leads...precordial leads <1.0mV I have reviewed and interpreted ECG and agree with software generated interpretation.
[2022-09-23 16:18] LABS: Bilirubin Negative (Negative); Blood Negative (Negative); Clarity Clear (Clear); Glucose Negative (Negative); Ketones Negative (Negative); Leukocyte Esterase Negative (Negative); Nitrite Negative (Negative); Specific Gravity 1.015 (1.005-1.025); Urobilinogen 0.2 mg/dL (Up to 0.2)
[2022-09-23 16:26] LABS: Abs Immature Grans 0.02 10^3/uL (0.0-0.06); Absolute Basophil Count 0.01 10^3/uL (0.0-0.2); Absolute Lymphocyte Count 1.81 10^3/uL (1.2-3.4); Absolute Monocyte Count 0.46 10^3/uL (0.1-0.8); Absolute Neutrophil Count 5.45 10^3/uL (1.2-6.7); Basophils % 0.1; HCT 37.6 % (36.0-46.0); HGB 12.6 g/dL (11.2-15.7); Immature Grans % 0.3; Lymphocytes % 23.4; MCH 29.5 pg (27.0-33.0); MCHC 33.5 % (32.0-36.0); MCV 88 fL (80-95); MPV 9.4 fL (8.0-11.0); Monocytes % 5.9; Neutrophils % 70.3; Platelet Count 268 10^3/uL (130-400); RBC 4.27 10^6/uL (3.93-5.22); RDW-SD 44.9 fL; WBC 7.75 10^3/uL (4.4-10.8)
[2022-09-23 16:29] LABS: *AMPHETAMINES SCREEN URINE Negative (Negative); *BARBITURATES SCREEN URINE Negative (Negative); *BENZODIAZEPINES SCREEN URINE Negative (Negative); Cannabinoids THC Negative (Negative); Cocaine Screen,Urine Negative (Negative); METHADONE URINE SCREEN Negative (Negative); OPIATES URINE SCREEN Negative (Negative)
[2022-09-23 16:30] LABS: Tricyclic Antidepressants Negative (Negative)
[2022-09-23] MEDS: Ibuprofen 600 MG TAB PO (16:33)
[2022-09-23 16:46] LABS: ALT 22 U/L (14-59); AST 10 U/L (15-37); Albumin 3.8 g/dL (3.4-5.0); Alkaline Phosphatase 94 U/L (46-116); Anion Gap 9.4 mmol/L (3-11); BUN 23 mg/dL (7-18); Bilirubin, Total 0.2 mg/dL (0.2-1.0); CO2 24.6 mmol/L (21.0-32.0); CREATININE 0.9 mg/dL (0.55-1.02); Calcium 9.3 mg/dL (8.5-10.1); Chloride 107 mmol/L (98-107); Glucose 127 mg/dL (74-106); Potassium 4.4 mmol/L (3.5-5.1); Sodium 141 mmol/L (136-145); Total Protein 7.2 g/dL (6.4-8.2)
[2022-09-23 16:50] LABS: ETHANOL BLOOD < 3.0 mg/dL (<10)
[2022-09-23 16:52] LABS: Acetaminophen < 2 ug/mL (10-30); Salicylate < 2.8 mg/dL (<2.8)
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
[2022-09-23 18:19] VITALS: BP 103/62; PULSE 85; RESP 18; TEMP 36.4; O2SAT 98
[2022-09-23] MEDS: LORazepam 1 MG TAB PO (18:33)
[2022-09-23] MEDS: Lidocaine 5% Patch 1 PATCH TP (18:33)
[2022-09-23] MEDS: traZODone 50 MG TAB PO (21:30)
[2022-09-23] MEDS: Topiramate 100 MG TAB 125 MG PO (21:30)
[2022-09-23] MEDS: Docusate Sodium 100 MG CAP (21:57)
[2022-09-23 22:07] VITALS: BP 104/72
[2022-09-23] MEDS: Prazosin 5 MG CAP PO (22:18)
[2022-09-23] MEDS: OXcarbazepine 150 MG TAB 300 MG PO (22:19)
[2022-09-23] MEDS: LORazepam 1 MG TAB 2 MG PO (22:57)
--- NOTE | 2022-09-24 07:57 | ED.PROG_ITS ---
Date of service: 09/24/22 Time of Service: 07:57 Medical Decision Making Patient was signed out to me by my colleague pending placement. Patient stable throughout the night. No interventions needed. Patient will be signed out for continued pending placement status. Of note pharmacy did contact me this sun meade and stated that they felt that the scheduled medications place for the patient may not be accurate. They will take deeper into the patient's actual collected and prescribed medications to come up with a more accurate med list. They will contact my colleague Dr. Gomez who is receiving signout from me for updated medication list. Sign Out Sign Out Data: Sign Out Comment: on voluntary hold for inpatient psych placement Last updated by Jan Ayala MD at 09/23/22 23:24 Discharge Plan Discharge Details Chief Complaint: PsychEval Primary Care Provider: Karma Recinos ED Provider: Bertram Mckenzie Home Meds and New Rx's Prescriptions: No Action prazosin 2 mg Capsule 5 mg PO HS topiramate 25 mg tablet 125 mg BID Patient Comments: TAKE ONE TABLET BY MOUTH TWICE A DAY WITH 100MG TAB. loratadine 10 mg tablet 10 mg QDAY Patient Comments: TAKE ONE TABLET BY MOUTH EVERY DAY Ajovy Autoinjector 225 mg/1.5 mL auto-injector 225 mg SUBCUT QMONTH cyanocobalamin (vitamin B-12) 1,000 mcg tablet 1,000 mcg QDAY clozapine 25 mg tablet 12.5 mg PO BID PRN Patient Comments: TAKE ONE TABLET BY MOUTH EVERY MORNING clozapine [Clozaril] 100 mg Tablet 100 mg PO HS clozapine [Clozaril] 100 mg Tablet 150 mg PO QAM oxcarbazepine [Trileptal] 300 mg Tablet 300 mg PO BID trazodone 150 mg Tablet 50 mg PO DAILY Rx Instructions: night time omeprazole 20 mg Capsule,Delayed Release(Dr/Ec) 20 mg PO DAILY epinephrine [EpiPen 2-Evans] 0.3 mg/0.3 mL Auto-Injector 0.3 mg IM DIRECTED PRN topiramate [Topamax] 100 mg Tablet 125 mg PO BID docusate sodium 100 mg Tablet 100 mg PO BID duloxetine [Cymbalta] 30 mg Capsule,Delayed Release(Dr/Ec) 30 mg PO DAILY
[2022-09-24] MEDS: Docusate Sodium 100 MG CAP PO (08:32)
[2022-09-24] MEDS: Loratidine 10 MG TAB PO (08:33)
[2022-09-24] MEDS: DULoxetine 30 MG CAP PO (08:33)
[2022-09-24] MEDS: Omeprazole 20 MG CAPCR PO (08:33)
[2022-09-24] MEDS: OXcarbazepine 150 MG TAB 300 MG PO (08:39)
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
--- NOTE | 2022-09-24 08:53 | NUR.NOTE ---
Nursing Note: patient apologized for her behavior from the day before. This RN explained to the patient that when people are in a crisis it can be hard for people to get out of loop thinking like that without help. This RN Reminded patient that we are here to help. Patient states she appreciates the staff here. Patient spoke with [facility] worker on the Ipad, and eating breakfast. She took all morning meds as prescribed. [facility] worker reported to this Nurse that patient still has thoughts of killing her self. Continues to have 1:1 observation with [facility]
[2022-09-24] MEDS: Patch Removal 1 EACH TP (09:04)
--- NOTE | 2022-09-24 09:08 | CMSP_ITS ---
Date of service: 09/24/22 Time of Service: 09:08 Care Management Safety Plan Status Status: Voluntary Guardianship if Applicable Guardianship: OPG Reason for Wait Reason for Wait: Inpatient Admission Safety Plan Safety Plan: VOLUNTARY FOR INPATIENT PSYCHIATRIC STABILIZATION.? Patient is appropriate in all interactions since arriving at [facility]; Pt has demonstrated appropriate coping and communication skills, has articulated his or her needs and concerns and is fully engaged during staff interactions. Safety plan has been established with patient, and care team, to adhere to patient goals, identify restrictions based on behavioral status, address nutrition, and determine allowed personal belongings, tools for hygiene and personal care. Determine level of activity including ambulation, level of supervision, visitors, and determine privileges based on behaviors and level of engagement by pt. VOLUNTARY SAFETY PLAN: 1. Will remain on suicide precautions. In Paper Clothes 2. Will remain in room under direct supervision of one-on-one staff at all times provided by CPS[employer]; CESAR, TOUR MANAGER aegis console operator track. 3. May have paper cups, plates, finger foods as well as a cardboard spoon with which to eat meals. 4. Follow [facility] Management of the Admitted Behavioral Health Patient policy. 5. Comfort bath system only, shower permitted with escort at RN discretion. 6. No personal belongings-soft items permitted at RN discretion. 7. Visitors-limited to service air support control officer and guardian at this time. 8. Activities: soft cart items approved per RN discretion. 9.? Bathroom privileges with escort in the ED, available in room without limitation on M/S. 10. Phone: contact limited to family, service air support control officer and guardian at this time, via cordless phone at RN discretion. 11. Due to VOLUNTARY status, if patient wishes to leave [facility], staff will contact [facility] Crisis Screener ([phone]) and On-Call Nurses Superintendent ([phone]) as soon as possible. In the event of elopement, notify [place] [employer] Police ([phone]). Patient is currently voluntarily at [facility] and seeking inpatient admission when a bed becomes available. [facility] Frontline Field Geologist will continue seeking placement. Please contact the Plan Rep Nurses Superintendent ([phone]) and [facility] Field Geologist ([phone]) for any needed changes in the Safety Plan.
--- NOTE | 2022-09-24 09:08 | PDOC.CMSAFE ---
Date of service: 09/24/22 Time of Service: 09:08 Care Management Safety Plan Status Status: Voluntary Guardianship if Applicable Guardianship: OPG Reason for Wait Reason for Wait: Inpatient Admission Safety Plan Safety Plan: VOLUNTARY FOR INPATIENT PSYCHIATRIC STABILIZATION.? Patient is appropriate in all interactions since arriving at [facility]; Pt has demonstrated appropriate coping and communication skills, has articulated his or her needs and concerns and is fully engaged during staff interactions. Safety plan has been established with patient, and care team, to adhere to patient goals, identify restrictions based on behavioral status, address nutrition, and determine allowed personal belongings, tools for hygiene and personal care. Determine level of activity including ambulation, level of supervision, visitors, and determine privileges based on behaviors and level of engagement by pt. VOLUNTARY SAFETY PLAN: 1. Will remain on suicide precautions. In Paper Clothes 2. Will remain in room under direct supervision of one-on-one staff at all times provided by [employer]; CESAR, RUBBER GOODS REPAIRER sports reporter. 3. May have paper cups, plates, finger foods as well as a cardboard spoon with which to eat meals. 4. Follow [facility] Management of the Admitted Behavioral Health Patient policy. 5. Comfort bath system only, shower permitted with escort at RN discretion. 6. No personal belongings-soft items permitted at RN discretion. 7. Visitors-limited to service support dba and guardian at this time. 8. Activities: soft cart items approved per RN discretion. 9.? Bathroom privileges with escort in the ED, available in room without limitation on M/S. 10. Phone: contact limited to family, service support dba and guardian at this time, via cordless phone at RN discretion. 11. Due to VOLUNTARY status, if patient wishes to leave [facility], staff will contact [facility] Crisis Screener ([phone]) and On-Call Erp Engineer ([phone]) as soon as possible. In the event of elopement, notify [place] [employer] Police ([phone]). Patient is currently voluntarily at [facility] and seeking inpatient admission when a bed becomes available. [facility] Frontline International Student Counselor will continue seeking placement. Please contact the Rubber Goods Tester Water Erp Engineer ([phone]) and [facility] International Student Counselor ([phone]) for any needed changes in the Safety Plan.
[2022-09-24 09:34] VITALS: BP 97/62; PULSE 84; RESP 18; O2SAT 95
--- NOTE | 2022-09-24 10:11 | NUR.NOTE ---
Nursing Note: This RN took report at 1000. Pt asleep at time of report. Pt has warm blankets for comfort and breakfast. Constant observation maintained.
--- NOTE | 2022-09-24 11:15 | NUR.NOTE ---
Nursing Note: [phone] Kristal Awan, Office Public Guardian. Stated she is medical guardian. Wants to discuss options of care. Number given to Dr. Gomez. Kristal Awan [phone]
--- NOTE | 2022-09-24 11:25 | NUR.NOTE ---
Nursing Note: Accessed pt [facility] [place] note for Dr. Gomez to review.
--- NOTE | 2022-09-24 11:35 | ED.PROG_ITS ---
Date of service: 09/24/22 Time of Service: 11:35 Medical Decision Making Patient received in signout earlier this morning. Patient has not had an unremarkable stay so far in the emergency department. Medications were adjusted with the assistance of pharmacy. Case discussed with [facility], we informed them that patient had indeed been admitted to the inpatient psych unit at [facility] and that the patient's guardian, Kristal Awan, had requested to the patient be transferred to [facility]. Shira, from [facility], is contacted [facility] to see if they have an inpatient bed. I left a message with Kristal Awan who is the patient's guardian. 12:15 PM I got a phone call from him amalia Santamaria APRN. The patient accepted in transfer to [facility]. Still pending callback from the patient guardian. 6 PM. Patient being transferred to [facility]. Sign Out Sign Out Data: Sign Out Comment: on voluntary hold for inpatient psych placement Last updated by Jan Ayala MD at 09/23/22 23:24 Sign Out Comment: Patient stable throughout the night, no interventions needed. Voluntary psych hold. Pending pharmacy reassessment of medications for more accurate med list Last updated by Bertram Mckenzie DO at 09/24/22 07:58 Discharge Plan Discharge Details Chief Complaint: PsychEval Primary Care Provider: Karma Recinos ED Provider: Terry Gomez Home Meds and New Rx's Prescriptions: No Action topiramate 25 mg tablet 125 mg BID Patient Comments: TAKE ONE TABLET BY MOUTH TWICE A DAY WITH 100MG TAB. loratadine 10 mg tablet 10 mg QDAY Patient Comments: TAKE ONE TABLET BY MOUTH EVERY DAY Ajovy Autoinjector 225 mg/1.5 mL auto-injector 225 mg SUBCUT QMONTH cyanocobalamin (vitamin B-12) 1,000 mcg tablet 1,000 mcg QDAY clozapine 100 mg Tablet 100 mg PO QAM Rx Instructions: Total dose 125mg Qam, 50mg HS clozapine 25 mg Tablet 25 mg PO QAM Rx Instructions: 125mg Qam, 50mg HS clozapine 50 mg Tablet 50 mg PO HS Rx Instructions: 125mg Qam, 50mg HS trazodone 50 mg Tablet 50 mg PO HS prazosin 5 mg Capsule 5 mg PO HS oxcarbazepine [Trileptal] 300 mg Tablet 300 mg PO BID omeprazole 20 mg Capsule,Delayed Release(Dr/Ec) 20 mg PO DAILY epinephrine [EpiPen 2-Evans] 0.3 mg/0.3 mL Auto-Injector 0.3 mg IM DIRECTED PRN docusate sodium 100 mg Tablet 100 mg PO BID duloxetine [Cymbalta] 30 mg Capsule,Delayed Release(Dr/Ec) 30 mg PO DAILY
--- NOTE | 2022-09-24 12:12 | NUR.NOTE ---
Nursing Note: Lunch ordered for pt. Pt displays flat affect and depressed mood. Pt understands next steps in ED care.
[2022-09-24 16:29] VITALS: BP 111/73; PULSE 100; RESP 18; TEMP 37; O2SAT 99
[2022-09-24] MEDS: Acetaminophen 325 MG TAB 650 MG PO (16:29)
[2022-09-24] MEDS: Lidocaine 5% Patch 1 PATCH TP (18:07)
== END 2022-09-24 19:41 ==
PROVIDERS: Emergency Medicine; Emergency Provider Emergency Medicine
DX: R45.851 Suicidal ideations (principal); M54.9 Dorsalgia, unspecified; R10.9 Unspecified abdominal pain
CPT/HCPCS: 80053; 80307; 81025; 93005; 99285; 73030; 80320; 80329; 81003; 85025; 93010; J3490

== ENCOUNTER 2022-12-14 21:12 | Emergency (ER) | payer MEDICARE, MEDICAID, SELFPAY ==
[2022-12-14 21:25] VITALS: BP 105/69; PULSE 70; RESP 20; TEMP 36.8; O2SAT 99
--- NOTE | 2022-12-14 21:30 | RT.EKG_ITS ---
APPROVED REPORT Exam: Resting ECG Reason for Exam: arrythmia Patient Location: E HR:66 bpm ECG Measurements Heart Rate 66 AXIS KS 158 P 33 QRSd 82 QRS 41 QT 387 T 18 QTc 405 Conclusion Sinus rhythm...normal P axis, V-rate 60- 99 NSR, NL intervals including QT. Twave inversion isolated in III. No STEMI. Minor changes from previou s. Twave were flat on previous EKGs. Isolated Q wave in III, which is new
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
[2022-12-14 22:06] LABS: Bilirubin Negative (Negative); Blood Negative (Negative); Clarity Clear (Clear); Glucose Negative (Negative); Ketones Negative (Negative); Leukocyte Esterase Negative (Negative); Nitrite Negative (Negative); Specific Gravity 1.025 (1.005-1.025); Urobilinogen 0.2 mg/dL (Up to 0.2); pH 6.5 (5-8)
--- NOTE | 2022-12-14 22:15 | DI.RAD_ITS ---
Exam(s) XR FOOT LT COMPLETE XR ANKLE LT COMPLETE EXAM: XR ANKLE LT COMPLETE CLINICAL HISTORY: trauma TECHNIQUE: 2D digital imaging was performed. Three views. COMPARISON: CR,XR XR FOOT LT COMPLETE from 12/14/2022 FINDINGS: BONES: No acute fracture is present. No bony destructive lesion is seen. Small heel spurs. Accessory navicular. JOINTS:The ankle mortise is normally aligned. Mild degenerative changes 1st MTP joint. SOFT TISSUE: Mild swelling around the malleoli. IMPRESSION: No acute abnormality. DATA REPOSITORY: RADIATION DOSE DELIVERED:
[2022-12-14 22:22] LABS: *AMPHETAMINES SCREEN URINE Negative (Negative); *BARBITURATES SCREEN URINE Negative (Negative); *BENZODIAZEPINES SCREEN URINE Negative (Negative); Cannabinoids THC Negative (Negative); Cocaine Screen,Urine Negative (Negative); METHADONE URINE SCREEN Negative (Negative); OPIATES URINE SCREEN Negative (Negative)
[2022-12-14 22:23] LABS: Tricyclic Antidepressants Negative (Negative)
[2022-12-14] MEDS: OLANZapine 10 MG VIAL (22:32)
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
[2022-12-14] MEDS: LORazepam 1 MG TAB 2 MG PO (22:36)
[2022-12-14] MEDS: Acetaminophen 500 MG TAB 1000 MG PO (22:37)
[2022-12-14] MEDS: Ondansetron O.D.T. 4 MG TABEF PO (23:30)
--- NOTE | 2022-12-14 23:33 | DI.VRAD_ITS ---
PROCEDURE INFORMATION: Exam: XR Left Foot Exam date and time: 12/14/2022 10:50 PM Age: 32 years old Clinical indication: Other: Trauma TECHNIQUE: Imaging protocol: Radiologic exam of the left foot. Views: 3 or more views. COMPARISON: No relevant prior studies available. FINDINGS: Bones/joints: There is a noninflamed plantar enthesophyte. Noninflamed enthesophyte seen within the region of the Achilles tendon. Changes consistent with mild hallux valgus 1st metatarsal phalangeal joint. There is joint space narrowing, sclerosis and valgus deformity of the joint. Bone mineralization is age-appropriate. There is no evidence of fracture. No evidence of dislocation. The joint spaces are adequately preserved; no significant degenerative narrowing and no bony erosion seen. Soft tissues: No radiopaque foreign body present. There is soft tissue swelling present. IMPRESSION: 1. No acute osseous abnormality. 2. Changes consistent with mild hallux valgus 1st metatarsal phalangeal joint. There is joint space narrowing, sclerosis and valgus deformity of the joint. 3. There is soft tissue swelling present. Dictated and Authenticated by: Camden Brown MD. Ordering:NAZ Darden MD
--- NOTE | 2022-12-14 23:36 | DI.VRAD_ITS ---
PROCEDURE INFORMATION: Exam: XR Right Shoulder Exam date and time: 12/14/2022 10:58 PM Age: 32 years old Clinical indication: Other: Trauma TECHNIQUE: Imaging protocol: Radiologic exam of the right shoulder. Views: 2 or more views. COMPARISON: CR XR SHOULDER RT COMPLETE 2+V 09/23/2022 5:32 PM FINDINGS: Bones/joints: There is no evidence of fracture. There is no evidence of dislocation. The acromioclavicular joint is normal. The subacromial joint space is well-preserved. The glenohumeral joint is normal. No joint effusion is present. Soft tissues: Mild soft tissue swelling. No soft tissue calcifications. IMPRESSION: Mild soft tissue swelling. Dictated and Authenticated by: Camden Brown MD. Ordering:NAZ Darden MD
--- NOTE | 2022-12-14 23:36 | DI.VRAD_ITS ---
PROCEDURE INFORMATION: Exam: XR Left Ankle Exam date and time: 12/14/2022 10:53 PM Age: 32 years old Clinical indication: Other: Trauma TECHNIQUE: Imaging protocol: Radiologic exam of the left ankle. Views: 3 or more views. COMPARISON: CR XR FOOT LT COMPLETE 12/14/2022 10:50 PM FINDINGS: Bones/joints: Noninflamed enthesophyte seen within the region of the Achilles tendon.There is a noninflamed plantar enthesophyte. Bone mineralization is age-appropriate. There is no evidence of fracture. No evidence of dislocation. The joint spaces are adequately preserved; no significant degenerative narrowing and no bony erosion seen. Soft tissues: No radiopaque foreign body present. There is soft tissue swelling present. IMPRESSION: 1. No acute osseous abnormality. 2. There is soft tissue swelling present. Dictated and Authenticated by: Camden Brown MD. Ordering:NAZ Darden MD
[2022-12-14 23:50] LABS: Abs Immature Grans 0.05 10^3/uL (0.0-0.06); Absolute Basophil Count 0.01 10^3/uL (0.0-0.2); Absolute Lymphocyte Count 2.42 10^3/uL (1.2-3.4); Absolute Monocyte Count 0.69 10^3/uL (0.1-0.8); Absolute Neutrophil Count 7.47 10^3/uL (1.2-6.7); Basophils % 0.1; HCT 35.1 % (36.0-46.0); HGB 11.5 g/dL (11.2-15.7); Immature Grans % 0.5; Lymphocytes % 22.7; MCH 29.1 pg (27.0-33.0); MCHC 32.8 % (32.0-36.0); MCV 89 fL (80-95); MPV 8.9 fL (8.0-11.0); Monocytes % 6.5; Neutrophils % 70.2; Platelet Count 260 10^3/uL (130-400); RBC 3.95 10^6/uL (3.93-5.22); RDW 13.8 % (11.7-14.6); RDW-SD 44.6 fL; WBC 10.64 10^3/uL (4.4-10.8)
[2022-12-15 00:11] LABS: Acetaminophen < 2 ug/mL (10-30); Salicylate < 2.8 mg/dL (<2.8)
[2022-12-15 00:14] LABS: ALT 21 U/L (14-59); AST 15 U/L (15-37); Albumin 3.9 g/dL (3.4-5.0); Alkaline Phosphatase 88 U/L (46-116); Anion Gap 10.2 mmol/L (3-11); BUN 20 mg/dL (7-18); Bilirubin, Total 0.5 mg/dL (0.2-1.0); CO2 22.8 mmol/L (21.0-32.0); Calcium 9.1 mg/dL (8.5-10.1); Chloride 104 mmol/L (98-107); Estimated GFR 77.72 (mL/min/1.73m2); Glucose 114 mg/dL (74-106); Potassium 3.5 mmol/L (3.5-5.1); Sodium 137 mmol/L (136-145); TSH (W/Ref FT4) 6.42 uIU/mL (0.36-3.74); Total Protein 7.5 g/dL (6.4-8.2)
[2022-12-15 00:17] LABS: ETHANOL BLOOD < 3.0 mg/dL (<10)
[2022-12-15 00:43] LABS: FREE T4 0.73 ng/dL (0.76-1.46)
[2022-12-15] MEDS: Ketorolac 30 MG/ML VIAL IM ×2 (00:48→11:04)
--- NOTE | 2022-12-15 01:23 | ED.PROG_ITS ---
Date of service: 12/15/22 Time of Service: : Medical Decision Making pt currently seeking voluntary placement for her earlier agitated behavior and borderline personality disorder, currently calm and cooperative, will continue to monitor until placement is found. Sign Out Sign Out Data: Sign Out Comment: This is a 32-year-old female who is brought in after warrant was issued for homicidal and suicidal ideation. She required physical and chemical restraints because she was belligerent and uncooperative. She does have a history of borderline personality disorder. Last updated by Katalina Thomas MD at 12/15/22 01:01 Discharge Plan Discharge Details Chief Complaint: PsychEval Primary Care Provider: Karma Recinos ED Provider: Rosendo Cleary [place] Meds and New Rx's Prescriptions: No Action topiramate 25 mg tablet 125 mg BID Patient Comments: TAKE ONE TABLET BY MOUTH TWICE A DAY WITH 100MG TAB. loratadine 10 mg tablet 10 mg QDAY Patient Comments: TAKE ONE TABLET BY MOUTH EVERY DAY Ajovy Autoinjector 225 mg/1.5 mL auto-injector 225 mg SUBCUT QMONTH cyanocobalamin (vitamin B-12) 1,000 mcg tablet 1,000 mcg QDAY clozapine 100 mg Tablet 100 mg PO QAM Rx Instructions: Total dose 125mg Qam, 50mg HS clozapine 25 mg Tablet 25 mg PO QAM Rx Instructions: 125mg Qam, 50mg HS clozapine 50 mg Tablet 50 mg PO HS Rx Instructions: 125mg Qam, 50mg HS trazodone 50 mg Tablet 50 mg PO HS prazosin 5 mg Capsule 5 mg PO HS oxcarbazepine [Trileptal] 300 mg Tablet 300 mg PO BID omeprazole 20 mg Capsule,Delayed Release(Dr/Ec) 20 mg PO DAILY epinephrine [EpiPen 2-Evans] 0.3 mg/0.3 mL Auto-Injector 0.3 mg IM DIRECTED PRN docusate sodium 100 mg Tablet 100 mg PO BID duloxetine [Cymbalta] 30 mg Capsule,Delayed Release(Dr/Ec) 30 mg PO DAILY
[2022-12-15] MEDS: Melatonin 3 MG TAB 6 MG PO (02:12)
[2022-12-15] MEDS: traZODone 50 MG TAB PO ×2 (02:12→21:53)
[2022-12-15] MEDS: Prazosin 5 MG CAP PO ×2 (02:16→22:03)
--- NOTE | 2022-12-15 09:53 | CMSP_ITS ---
Date of service: 12/15/22 Time of Service: 09:54 Care Management Safety Plan Status Status: Voluntary Guardianship if Applicable Guardianship: OPG Reason for Wait Reason for Wait: Inpatient Admission Safety Plan Safety Plan: VOLUNTARY FOR INPATIENT PSYCHIATRIC STABILIZATION.? Patient is appropriate in all interactions since arriving at [facility]; Pt has demonstrated appropriate coping and communication skills, has articulated his or her needs and concerns and is fully engaged during staff interactions. Safety plan has been established with patient, and care team, to adhere to patient goals, identify restrictions based on behavioral status, address nutrition, and determine allowed personal belongings, tools for hygiene and personal care. Determine level of activity including ambulation, level of supervision, visitors, and determine privileges based on behaviors and level of engagement by pt. SAFETY PLAN: 1. Will remain on suicide precautions. In Paper Clothes 2. Will remain in room under direct supervision of one-on-one staff at all times provided by [employer], SEGMENTAL PAVING SUPERVISOR, TINNER HELPER correspondent. 3. May have paper cups, plates, finger foods as well as a cardboard spoon with which to eat meals. 4. Follow [facility] Management of the Admitted Behavioral Health Patient policy. 5. Comfort bath system only, shower permitted with escort at RN discretion. 6. No personal belongings-soft items permitted at RN discretion. 7. Visitors: Per [facility] Visitor Policy and at RN discretion. 8. Activities: soft cart items, television and other activities at RN discretion. 9.?Bathroom privileges with escort in the ED, available in room without limitation on M/S. 10. Phone: contact limited to family and legal guardian at this time, via [facility] phone at RN discretion. 11. Due to VOLUNTARY status, if patient wishes to leave [facility], staff will contact [facility] Crisis Screener ([phone]) and On-Call [employer] Admin ([phone]) as soon as possible. In the event of elopement, notify [place] Police ([phone]). Patient is currently voluntarily at [facility] and seeking inpatient admission when a bed becomes available. [facility] Frontline Environmental Services Attendant will continue seeking placement. Please contact the Environmental Protection Geologist [employer] Admin ([phone]) and [facility] Environmental Services Attendant ([phone]) for any needed changes in the Safety Plan. Safety plan has been provided to interdepartmental care team.
--- NOTE | 2022-12-15 09:53 | PDOC.CMSAFE ---
Date of service: 12/15/22 Time of Service: 09:54 Care Management Safety Plan Status Status: Voluntary Guardianship if Applicable Guardianship: OPG Reason for Wait Reason for Wait: Inpatient Admission Safety Plan Safety Plan: VOLUNTARY FOR INPATIENT PSYCHIATRIC STABILIZATION.? Patient is appropriate in all interactions since arriving at [facility]; Pt has demonstrated appropriate coping and communication skills, has articulated his or her needs and concerns and is fully engaged during staff interactions. Safety plan has been established with patient, and care team, to adhere to patient goals, identify restrictions based on behavioral status, address nutrition, and determine allowed personal belongings, tools for hygiene and personal care. Determine level of activity including ambulation, level of supervision, visitors, and determine privileges based on behaviors and level of engagement by pt. SAFETY PLAN: 1. Will remain on suicide precautions. In Paper Clothes 2. Will remain in room under direct supervision of one-on-one staff at all times provided by [employer], PENSION FUND MANAGER, PERSONAL CARE AIDE test operator. 3. May have paper cups, plates, finger foods as well as a cardboard spoon with which to eat meals. 4. Follow [facility] Management of the Admitted Behavioral Health Patient policy. 5. Comfort bath system only, shower permitted with escort at RN discretion. 6. No personal belongings-soft items permitted at RN discretion. 7. Visitors: Per [facility] Visitor Policy and at RN discretion. 8. Activities: soft cart items, television and other activities at RN discretion. 9.?Bathroom privileges with escort in the ED, available in room without limitation on M/S. 10. Phone: contact limited to family and legal guardian at this time, via [facility] phone at RN discretion. 11. Due to VOLUNTARY status, if patient wishes to leave [facility], staff will contact [facility] Crisis Screener ([phone]) and On-Call Paint Preparer ([phone]) as soon as possible. In the event of elopement, notify [place] [employer] Police ([phone]). Patient is currently voluntarily at [facility] and seeking inpatient admission when a bed becomes available. [facility] Frontline Assembly Cleaner will continue seeking placement. Please contact the Youth Nutritional Monitor Paint Preparer ([phone]) and [facility] Assembly Cleaner ([phone]) for any needed changes in the Safety Plan. Safety plan has been provided to interdepartmental care team.
[2022-12-15] MEDS: DULoxetine 30 MG CAP PO (10:12)
[2022-12-15] MEDS: OXcarbazepine 150 MG TAB 300 MG PO ×2 (10:13→20:24)
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
[2022-12-15] MEDS: Ondansetron O.D.T. 4 MG TABEF PO (11:04)
--- NOTE | 2022-12-15 12:20 | PDOC.MHPN2 ---
Date of service: 12/15/22 Time of Service: 12:20 Mental Health Emergency Note Release [facility] release signed:: Yes Reason for Visit The client was brought to [facility] on 12.14.22 via a MH Warrant. Upon arriving the client agreed to stay voluntarily. The client remains voluntary. This assessment was completed face to face at bedside. In the last 2 weeks has the pt presented for ES prior to today?: Unknown Impression Client is a 32 year old, single female who is an IDDS client with [facility] and lives with an BANBURY OPERATOR in [facility]. The client is lying in bed having just awoke when this clinician arrived at 9:45am. She reported that she is doing good. She self-reported her risk to harm herself a 7/10 and a 0/10 to harm others. She has breakfast by her side however, stated she does not want to eat. She reports she is angry she is there and thinks the whole situation is bullshit. She claims that she plays with knives all the time and at the [employer] store yesterday was no different. She also notes that she is angry her BANBURY OPERATOR is on her way to [place] to a horse auction, I didn't want her to go. The client's guardian reported that her playing with knives all the time is inaccurate. Plan/Disposition Recommended Disposition: Hospitalization facilities contacted. Plan: The client will remain at [facility] on a voluntary basis. She will be assessed daily by [facility]. The client will need an assessment prior to discharge if she is wanting to leave. At this time she still would be considered for an EE. Person reported agreement to plan: Yes Facilities contacted if Applicable [facility] Not accepted, No bed available [facility] Not accepted, No bed available [facility] Not accepted, Other, [facility] Not accepted, [facility] Reports/communication Outcome discussed with: ED/Personnel
[2022-12-15] MEDS: Lidocaine 5% Patch 1 PATCH TP (13:45)
--- NOTE | 2022-12-15 14:06 | DI.RAD_ITS ---
Exam(s) XR FOOT LT COMPLETE EXAM: XR FOOT LT COMPLETE CLINICAL HISTORY: dorsal foot pain. TECHNIQUE: 2D digital imaging was performed. Three views. COMPARISON: CR,XR XR FOOT LT COMPLETE from 12/14/2022 FINDINGS: BONES: No acute fracture is present. No bony destructive lesion is seen. Accessory navicular. Smal l heel spur. JOINTS: No dislocation present. SOFT TISSUE: Mild dorsal swelling. IMPRESSION: No acute bony abnormality. DATA REPOSITORY: RADIATION DOSE DELIVERED:
[2022-12-15] MEDS: diazePAM 5 MG TAB 10 MG PO (16:56)
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
[2022-12-15] MEDS: LORazepam 1 MG TAB PO (20:46)
[2022-12-16] MEDS: diphenhydrAMINE 25 MG CAP PO (00:25)
[2022-12-16] MEDS: LORazepam 1 MG TAB PO ×2 (00:25→18:04)
[2022-12-16] MEDS: Acetaminophen 325 MG TAB 650 MG PO (00:25)
[2022-12-16] MEDS: Ketorolac 15 MG/ML VIAL IM ×3 (02:25→19:20)
--- NOTE | 2022-12-16 07:45 | ED.PROG_ITS ---
Date of service: 12/16/22 Time of Service: 07:45 Medical Decision Making pt calm and cooperative currently, no issues overnight, will continue to monitor until placement found. Sign Out Sign Out Data: Sign Out Comment: This is a 32-year-old female who is brought in after warrant was issued for homicidal and suicidal ideation. She required physical and chemical restraints because she was belligerent and uncooperative. She does have a history of borderline personality disorder. Last updated by Katalina Thomas MD at 12/15/22 01:01 Sign Out Comment: pt voluntary currently for HI and SI, initially had chemical restraint with first provider. [facility] met with her after and is willing to seek voluntary placement but if she decides to leave would likely be made invol untary. Last updated by Rosendo Cleary MD at 12/15/22 01:25 Sign Out Comment: Stable throughout the day. Did complain of foot pain. X-ray was done and was negative. Given Valium voluntarily this evening. Last updated by Bertram Mckenzie DO at 12/15/22 20:00 Sign Out Comment: toradol tylenol and ativan overnigh, no issues; awaiting placement Last updated by Jeremiah Blankenship MD at 12/16/22 07:17 Discharge Plan Discharge Details Chief Complaint: PsychEval Primary Care Provider: Karma Recinos ED Provider: Rosendo Cleary Home Meds and New Rx's Prescriptions: No Action topiramate 25 mg tablet 125 mg BID Patient Comments: TAKE ONE TABLET BY MOUTH TWICE A DAY WITH 100MG TAB. loratadine 10 mg tablet 10 mg QDAY Patient Comments: TAKE ONE TABLET BY MOUTH EVERY DAY Ajovy Autoinjector 225 mg/1.5 mL auto-injector 225 mg SUBCUT QMONTH cyanocobalamin (vitamin B-12) 1,000 mcg tablet 1,000 mcg QDAY clozapine 100 mg Tablet 100 mg PO QAM Rx Instructions: Total dose 125mg Qam, 50mg HS clozapine 25 mg Tablet 25 mg PO QAM Rx Instructions: 125mg Qam, 50mg HS clozapine 50 mg Tablet 50 mg PO HS Rx Instructions: 125mg Qam, 50mg HS trazodone 50 mg Tablet 50 mg PO HS prazosin 5 mg Capsule 5 mg PO HS oxcarbazepine [Trileptal] 300 mg Tablet 300 mg PO BID omeprazole 20 mg Capsule,Delayed Release(Dr/Ec) 20 mg PO DAILY epinephrine [EpiPen 2-Evans] 0.3 mg/0.3 mL Auto-Injector 0.3 mg IM DIRECTED PRN docusate sodium 100 mg Tablet 100 mg PO BID duloxetine [Cymbalta] 30 mg Capsule,Delayed Release(Dr/Ec) 30 mg PO DAILY
[2022-12-16] MEDS: OXcarbazepine 150 MG TAB 300 MG PO (09:22)
[2022-12-16] MEDS: DULoxetine 30 MG CAP PO (09:22)
--- NOTE | 2022-12-16 09:28 | CMSP_ITS ---
Date of service: 12/16/22 Time of Service: 09:28 Care Management Safety Plan Status Status: Voluntary Guardianship if Applicable Guardianship: OPG ( legal guardian; Nola Awan ) Reason for Wait Reason for Wait: Inpatient Admission Safety Plan Safety Plan: VOLUNTARY FOR INPATIENT PSYCHIATRIC STABILIZATION.? Patient is appropriate in all interactions since arriving at [facility]; Pt has demonstrated appropriate coping and communication skills, has articulated his or her needs and concerns and is fully engaged during staff interactions. Safety plan has been established with patient, and care team, to adhere to patient goals, identify restrictions based on behavioral status, address nutrition, and determine allowed personal belongings, tools for hygiene and personal care. Determine level of activity including ambulation, level of supervision, visitors, and determine privileges based on behaviors and level of engagement by pt. Referrals are faxed by [facility] to [facility] [place], [facility] [place], [facility], [facility], and [facility] for review.? Mary will remain at [facility] on voluntary status and will be reassessed by [facility] daily until a psych bed is secured for her.? CM will continue to follow. SAFETY PLAN: 1. Will remain on suicide precautions. In Paper Clothes 2. Will remain in room under direct supervision of one-on-one staff at all times provided by CPSO, YARD ATTENDANT, INDUSTRIAL RELATIONS OFFICER dumper operator. 3. May have paper cups, plates, finger foods as well as a cardboard spoon with which to eat meals. 4. Follow [facility] Management of the Admitted Behavioral Health Patient policy. 5. Comfort bath system only, shower permitted with escort at RN discretion. 6. No personal belongings-soft items permitted at RN discretion. 7. Visitors: Per [facility] Visitor Policy and at RN discretion. 8. Activities: soft cart items, television and other activities at RN discretion. 9.?Bathroom privileges with escort in the ED, available in room without limitation on M/S. 10. Phone: contact limited to family and legal guardian at this time, via [facility] phone at RN discretion. 11. Due to VOLUNTARY status, if patient wishes to leave [facility], staff will contact [facility] Crisis Screener ([phone]) and On-Call Awning Hanger Supervisor ([phone]) as soon as possible. In the event of elopement, notify [facility] Police ([phone]). Patient is currently voluntarily at [facility] and seeking inpatient admission when a bed becomes available. [facility] Frontline Slice Plug Cutter Operator will continue seeking plac ement. Please contact the Marketing Business Analyst Awning Hanger Supervisor ([phone]) and [facility] Slice Plug Cutter Operator ([phone]) for any needed changes in the Safety Plan. Safety plan has been provided to interdepartmental care team.
--- NOTE | 2022-12-16 09:28 | PDOC.CMSAFE ---
Date of service: 12/16/22 Time of Service: 09:28 Care Management Safety Plan Status Status: Voluntary Guardianship if Applicable Guardianship: OPG ( legal guardian; Nola Awan ) Reason for Wait Reason for Wait: Inpatient Admission Safety Plan Safety Plan: VOLUNTARY FOR INPATIENT PSYCHIATRIC STABILIZATION.? Patient is appropriate in all interactions since arriving at [facility]; Pt has demonstrated appropriate coping and communication skills, has articulated his or her needs and concerns and is fully engaged during staff interactions. Safety plan has been established with patient, and care team, to adhere to patient goals, identify restrictions based on behavioral status, address nutrition, and determine allowed personal belongings, tools for hygiene and personal care. Determine level of activity including ambulation, level of supervision, visitors, and determine privileges based on behaviors and level of engagement by pt. Referrals are faxed by [facility] to [facility] [place], [facility] [place], [facility], [facility], and [facility] for review.? Mary will remain at [facility] on voluntary status and will be reassessed by [facility] daily until a psych bed is secured for her.? CM will continue to follow. SAFETY PLAN: 1. Will remain on suicide precautions. In Paper Clothes 2. Will remain in room under direct supervision of one-on-one staff at all times provided by CPSO, SUPERVISOR LOCOMOTIVE, AUTOMOTIVE STARTER REPAIRER wire products inspector. 3. May have paper cups, plates, finger foods as well as a cardboard spoon with which to eat meals. 4. Follow [facility] Management of the Admitted Behavioral Health Patient policy. 5. Comfort bath system only, shower permitted with escort at RN discretion. 6. No personal belongings-soft items permitted at RN discretion. 7. Visitors: Per [facility] Visitor Policy and at RN discretion. 8. Activities: soft cart items, television and other activities at RN discretion. 9.?Bathroom privileges with escort in the ED, available in room without limitation on M/S. 10. Phone: contact limited to family and legal guardian at this time, via [facility] phone at RN discretion. 11. Due to VOLUNTARY status, if patient wishes to leave [facility], staff will contact [facility] Crisis Screener ([phone]) and On-Call Machine Setter Supervisor ([phone]) as soon as possible. In the event of elopement, notify [facility] Police ([phone]). Patient is currently voluntarily at [facility] and seeking inpatient admission when a bed becomes available. [facility] Frontline Ball Point Splitter will continue seeking placement. Please contact the Power Wheelchair Mechanic Machine Setter Supervisor ([phone]) and [facility] Ball Point Splitter ([phone]) for any needed changes in the Safety Plan. Safety plan has been provided to interdepartmental care team.
[2022-12-16] MEDS: Acetaminophen 500 MG TAB 1000 MG PO (09:29)
[2022-12-16] MEDS: Lidocaine 5% Patch 1 PATCH TP (09:31)
--- NOTE | 2022-12-16 09:45 | DI.CT_ITS ---
Exam(s) CT LOWER EXTREMITY LT WO EXAM: CT LOWER EXTREMITY LT WO CLINICAL HISTORY: persistent left foot pain, difficulty ambulating. TECHNIQUE: Imaging Protocol: Axial computed tomography images with coronal and sagittal reformatted images were created and reviewed. COMPARISON: CR,XR XR FOOT LT COMPLETE from 12/14/2022 CR XR FOOT LT COMPLETE from 12/15/2022 FINDINGS: Bones: The osseous structures and articular surfaces are intact. Bony alignment is satisfactory. N o cellulitic or osteomyelitic changes are identified. There is no evidence of joint space narrowing or cystic degeneration seen. No lytic or sclerotic lesions are identified. Soft Tissues: Normal. IMPRESSION: 1. No evidence of an acute fracture or dislocation. 2. Findings were discussed with Dr. Cleary at 11:32 a.m. on 12/16/2022. RADIATION DOSE DELIVERED: 282.84mGy.cm Total DLP 282.84mGy.cm Total DLP DATA REPOSITORY: All CT scans at this facility are submitted to the National Radiology Data Registry (NRDR) Dose Index Registry (DIR) with the [employer] (ACR). RADIATION OPTIMIZATION: All CT scans at this facility use at least one of these dose optimization te chniques: automated exposure control; mA and/or kV adjustment per patient size (includes targeted exa ms where dose is matched to clinical indication); or iterative reconstruction.
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
--- NOTE | 2022-12-16 11:39 | ED.PROG_ITS ---
Date of service: 12/16/22 Time of Service: 11:39 Medical Decision Making pt with persistent superior left midfoot pain and pain with bearing weight, no redness or signs of infection. I ordered a CT to exclude underlying fracture which was negative. Imaging Data Radiologic Study: Attestation: I personally reviewed and interpreted this imaging study as follows: Imaging: CT Scan Radiologist's impression: Patient Name: Mary Linda Unit #: [id number] Loc: ER ? Ordering Provider:? Rosendo Cleary M.D. Status: REG ER ? Primary Care Provider: Karma Recinos Date of Exam: 12/16/22 Sex: F ? : 1990 Age: 32 ? Exam(s) a CT:CT lower extremity LT wo Exam(s) CT LOWER EXTREMITY LT WO EXAM: ? CT LOWER EXTREMITY LT WO CLINICAL HISTORY: ? persistent left foot pain, difficulty ambulating. ? TECHNIQUE:? Imaging Protocol: Axial computed tomography images with coronal and sagittal reformatted images were created and reviewed. COMPARISON:? CR,XR XR FOOT LT COMPLETE from 12/14/2022 CR XR FOOT LT COMPLETE from 12/15/2022 FINDINGS: Bones:? The osseous structures and articular surfaces are intact.? Bony alignment is satisfactory.? No cellulitic or osteomyelitic changes are identified.? There is no evidence of joint space narrowing or cystic degeneration seen. No lytic or sclerotic lesions are identified. Soft Tissues: Normal. IMPRESSION: 1. No evidence of an acute fracture or dislocation. Sign Out Sign Out Data: Sign Out Comment: This is a 32-year-old female who is brought in after warrant was issued for homicidal and suicidal ideation. She required physical and chemical restraints because she was belligerent and uncooperative. She does have a history of borderline personality disorder. Last updated by Katalina Thomas MD at 12/15/22 01:01 Sign Out Comment: pt voluntary currently for HI and SI, initially had chemical restraint with first provider. [facility] met with her after and is willing to seek voluntary placement but if she decides to leave would likely be made involuntary. Last updated by Rosendo Cleary MD at 12/15/22 01:25 Sign Out Comment: Stable throughout the day. Did complain of foot pain. X-ray was done and was negative. Given Valium voluntarily this evening. Last updated by Bertram Mckenzie DO at 12/15/22 20:00 Sign Out Comment: toradol tylenol and ativan overnigh, no issues; awaiting placement Last updated by Jeremiah Blankenship MD at 12/16/22 07:17 Sign Out Comment: seeking voluntary placement for si/hi Last updated by Rosendo Cleary MD at 12/16/22 09:01 Discharge Plan Discharge Details Chief Complaint: PsychEval Clinical Impression: Suicidal ideation, Sprain of left foot Primary Care Provider: Karma Recinos ED Provider: Rosendo Cleary Home Meds and New Rx's Prescriptions: No Action topiramate 25 mg tablet 125 mg BID Patient Comments: TAKE ONE TABLET BY MOUTH TWICE A DAY WITH 100MG TAB. loratadine 10 mg tablet 10 mg QDAY Patient Comments: TAKE ONE TABLET BY MOUTH EVERY DAY Ajovy Autoinjector 225 mg/1.5 mL auto-injector 225 mg SUBCUT QMONTH cyanocobalamin (vitamin B-12) 1,000 mcg tablet 1,000 mcg QDAY clozapine 100 mg Tablet 100 mg PO QAM Rx Instructions: Total dose 125mg Qam, 50mg HS clozapine 25 mg Tablet 25 mg PO QAM Rx Instructions: 125mg Qam, 50mg HS clozapine 50 mg Tablet 50 mg PO HS Rx Instructions: 125mg Qam, 50mg HS trazodone 50 mg Tablet 50 mg PO HS prazosin 5 mg Capsule 5 mg PO HS oxcarbazepine [Trileptal] 300 mg Tablet 300 mg PO BID omeprazole 20 mg Capsule,Delayed Release(Dr/Ec) 20 mg PO DAILY epinephrine [EpiPen 2-Evans] 0.3 mg/0.3 mL Auto-Injector 0.3 mg IM DIRECTED PRN docusate sodium 100 mg Tablet 100 mg PO BID duloxetine [Cymbalta] 30 mg Capsule,Delayed Release(Dr/Ec) 30 mg PO DAILY
[2022-12-16] MEDS: traZODone 50 MG TAB PO (19:20)
[2022-12-16] MEDS: Prazosin 5 MG CAP PO (19:20)
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
[2022-12-17] MEDS: Acetaminophen 500 MG TAB 1000 MG PO ×2 (00:35→11:03)
[2022-12-17 01:16] LABS: COVID-19 PCR Negative (Negative); Influenza A PCR Negative (Negative); Influenza B PCR Negative (Negative); RSV PCR Negative (Negative)
[2022-12-17 01:34] LABS: Source Nasopharynx
--- NOTE | 2022-12-17 08:03 | NUR.NOTE ---
Accessed chart to locate who the Physican was that treated PT. This was for the Ortho paperwork. Nursing Note:
[2022-12-17] MEDS: DULoxetine 30 MG CAP PO (10:03)
[2022-12-17] MEDS: OXcarbazepine 150 MG TAB 300 MG PO ×2 (10:04→22:35)
[2022-12-17] MEDS: Lidocaine 5% Patch 1 PATCH TP (10:08)
[2022-12-17] MEDS: Ketorolac 15 MG/ML VIAL IM ×2 (10:12→18:17)
--- NOTE | 2022-12-17 10:21 | NUR.NOTE ---
1000 this nurse assumed care of PT Nursing Note:
--- NOTE | 2022-12-17 10:55 | ED.PROG_ITS ---
Date of service: 12/17/22 Time of Service: 10:55 Medical Decision Making pt calm and cooperative, no acute new complaints, still has some left foot soreness, no findings on exam to suggest infectious etiology. repeat tsh normal. Sign Out Sign Out Data: Sign Out Comment: This is a 32-year-old female who is brought in after warrant was issued for homicidal and suicidal ideation. She required physical and chemical restraints because she was belligerent and uncooperative. She does have a history of borderline personality disorder. Last updated by Katalina Thomas MD at 12/15/22 01:01 Sign Out Comment: pt voluntary currently for HI and SI, initially had chemical restraint with first provider. [facility] met with her after and is willing to seek voluntary placement but if she decides to leave would likely be made involuntary. Last updated by Rosendo Cleary MD at 12/15/22 01:25 Sign Out Comment: Stable throughout the day. Did complain of foot pain. X-ray was done and was negative. Given Valium voluntarily this evening. Last updated by Bertram Mckenzie DO at 12/15/22 20:00 Sign Out Comment: toradol tylenol and ativan overnigh, no issues; awaiting placement Last updated by Jreemiah Blankenship MD at 12/16/22 07:17 Sign Out Comment: seeking voluntary placement for si/hi Last updated by Rosendo Cleary MD at 12/16/22 09:01 Sign Out Comment: Required a single dose of Ativan this afternoon. Received nig ht meds. Remains voluntary for psych admission. Last updated by Jan Ayala MD at 12/16/22 22:46 Sign Out Comment: The patient complained of a sore throat during the night. On exam she had some nasal congestion and is s/p tonsillectomy. She has a patent airway and has normal phonation. Flu/COVID/ RSV is negative. The patient received APAP. The patient did not receive her pm meds last night. We will resume today. May want to consult hospital medicine or endocrinology for abnormal TSH and free T4. Last updated by Katalina Thomas MD at 12/17/22 07:13 Discharge Plan Discharge Details Chief Complaint: PsychEval Clinical Impression: Suicidal ideation, Sprain of left foot Primary Care Provider: Karma Recinos ED Provider: Rosendo Cleary Home Meds and New Rx's Prescriptions: No Action topiramate 25 mg tablet 125 mg BID Patient Comments: TAKE ONE TABLET BY MOUTH TWICE A DAY WITH 100MG TAB. loratadine 10 mg tablet 10 mg QDAY Patient Comments: TAKE ONE TABLET BY MOUTH EVERY DAY Ajovy Autoinjector 225 mg/1.5 mL auto-injector 225 mg SUBCUT QMONTH cyanocobalamin (vitamin B-12) 1,000 mcg tablet 1,000 mcg QDAY clozapine 100 mg Tablet 100 mg PO QAM Rx Instructions: Total dose 125mg Qam, 50mg HS clozapine 25 mg Tablet 25 mg PO QAM Rx Instructions: 125mg Qam, 50mg HS clozapine 50 mg Tablet 50 mg PO HS Rx Instructions: 125mg Qam, 50mg HS trazodone 50 mg Tablet 50 mg PO HS prazosin 5 mg Capsule 5 mg PO HS oxcarbazepine [Trileptal] 300 mg Tablet 300 mg PO BID omeprazole 20 mg Capsule,Delayed Release(Dr/Ec) 20 mg PO DAILY epinephrine [EpiPen 2-Evans] 0.3 mg/0.3 mL Auto-Injector 0.3 mg IM DIRECTED PRN docusate sodium 100 mg Tablet 100 mg PO BID duloxetine [Cymbalta] 30 mg Capsule,Delayed Release(Dr/Ec) 30 mg PO DAILY
[2022-12-17 11:15] VITALS: TEMP 36.7
[2022-12-17] MEDS: Ondansetron O.D.T. 4 MG TABEF PO (12:48)
--- NOTE | 2022-12-17 12:48 | NUR.NOTE ---
1215 PT C/O nausea. ED MD notified Nursing Note:
--- NOTE | 2022-12-17 16:19 | NUR.NOTE ---
spoke with window caser via phone Nursing Note:
[2022-12-17 17:35] VITALS: BP 107/64; PULSE 71; RESP 18; O2SAT 96
--- NOTE | 2022-12-17 17:58 | NUR.NOTE ---
PT has a complaint to RLQ ABD tenderness. ED MD notified Nursing Note:
--- NOTE | 2022-12-17 18:45 | DI.CT_ITS ---
Exam(s) CT ABDOMEN PELVIS W EXAM: CT ABDOMEN PELVIS W CLINICAL HISTORY: right lower abdominal pain. TECHNIQUE: Imaging Protocol: Axial computed tomography images with coronal and sagittal reformatted images were created and reviewed CONTRAST MATERIAL: Intravenous: Omnipaque 350 Contrast volume:100 ml Oral: / no COMPARISON: CT CT chest PE CTA from 04/16/2018 FINDINGS: ABDOMEN: Lung Bases: Normal where visualized. Liver: Normal density. No measurable mass. Gallbladder and biliary tract: No radiodense calculus or dilation. Pancreas: Normal density, no abnormal calcifications or inflammatory process. Spleen: Normal. Kidneys: Normal size, contour and axis. No radiodense stones or obstructive uropathy. No suspicious m asses seen. Adrenal glands: No masses seen. Vasculature: Abdominal aorta non-dilated. Soft tissues: Unremarkable. PELVIS: Bladder: No gross wall thickening. No calculi.No focal mass. Bowel: No obstruction. No bowel wall thickening. Appendix normal. Large quantity of stool noted in ascending through mid descending colon. Decompressed distally. Peritoneal cavity: No ascites, collection or mesenteric inflammatory response. Bones: Unremarkable for age. Reproductive organs: Within normal limits. IUD in endometrial cavity. Lymph nodes: Unremarkable. IMPRESSION:: Increased quantity of stool, otherwise unremarkable CT scan of the abdomen and pelvis. RADIATION DOSE DELIVERED: 1,589.31mGy.cm Total DLP DATA REPOSITORY: All CT scans at this facility are submitted to the National Radiology Data Registry (NRDR) Dose Index Registry (DIR) with the [employer] (ACR). RADIATION OPTIMIZATION: All CT scans at this facility use at least one of these dose optimization te chniques: automated exposure control; mA and/or kV adjustment per patient size (includes targeted exa ms where dose is matched to clinical indication); or iterative reconstruction.
--- NOTE | 2022-12-17 18:56 | W.EDPROG ---
Date of service: 12/17/22 Time of Service: 18:56 Medical Decision Making pt started to complain of rlq pain, was tearful and crying, is tender in the rlq, no distention. Will proceed with ct abd/pelvis to evaluate for appendicitis though feel this is unlikely Sign Out Sign Out Data: Sign Out Comment: This is a 32-year-old female who is brought in after warrant was issued for homicidal and suicidal ideation. She required physical and chemical restraints because she was belligerent and uncooperative. She does have a history of borderline personality disorder. Last updated by Katalina Thomas MD at 12/15/22 01:01 Sign Out Comment: pt voluntary currently for HI and SI, initially had chemical restraint with first provider. [facility] met with her after and is willing to seek voluntary placement but if she decides to leave would likely be made involuntary. Last updated by Rosendo Cleary MD at 12/15/22 01:25 Sign Out Comment: Stable throughout the day. Did complain of foot pain. X-ray was done and was negative. Given Valium voluntarily this evening. Last updated by Bertram Mckenzie DO at 12/15/22 20:00 Sign Out Comment: toradol tylenol and ativan overnigh, no issues; awaiting placement Last updated by Jeremiah Blankenship MD at 12/16/22 07:17 Sign Out Comment: seeking voluntary placement for si/hi Last updated by Rosendo Cleary MD at 12/16/22 09:01 Sign Out Comment: Required a single dose of Ativan this afternoon. Received night meds. Remains voluntary for psych admission. Last updated by Jan Ayala MD at 12/16/22 22:46 Sign Out Comment: The patient complained of a sore throat during the night. On exam she had some nasal congestion and is s/p tonsillectomy. She has a patent airway and has normal phonation. Flu/COVID/ RSV is negative. The patient received APAP. The patient did not receive her pm meds last night. We will resume today. May want to consult hospital medicine or endocrinology for abnormal TSH and free T4. Last updated by Katalina Thomas MD at 12/17/22 07:13 Sign Out Comment: voluntary for si/hi, no issues during shift Last updated by Rosendo Cleary MD at 12/17/22 17:45 Discharge Plan Discharge Details Chief Complaint: PsychEval Clinical Impression: Suicidal ideation, Sprain of left foot Primary Care Provider: Karma Recinos ED Provider: Rosendo Cleary Home Meds and New Rx's Prescriptions: No Action topiramate 25 mg tablet 125 mg BID Patient Comments: TAKE ONE TABLET BY MOUTH TWICE A DAY WITH 100MG TAB. loratadine 10 mg tablet 10 mg QDAY Patient Comments: TAKE ONE TABLET BY MOUTH EVERY DAY Ajovy Autoinjector 225 mg/1.5 mL auto-injector 225 mg SUBCUT QMONTH cyanocobalamin (vitamin B-12) 1,000 mcg tablet 1,000 mcg QDAY clozapine 100 mg Tablet 100 mg PO QAM Rx Instructions: Total dose 125mg Qam, 50mg HS clozapine 25 mg Tablet 25 mg PO QAM Rx Instructions: 125mg Qam, 50mg HS clozapine 50 mg Tablet 50 mg PO HS Rx Instructions: 125mg Qam, 50mg HS trazodone 50 mg Tablet 50 mg PO HS prazosin 5 mg Capsule 5 mg PO HS oxcarbazepine [Trileptal] 300 mg Tablet 300 mg PO BID omeprazole 20 mg Capsule,Delayed Release(Dr/Ec) 20 mg PO DAILY epinephrine [EpiPen 2-Evans] 0.3 mg/0.3 mL Auto-Injector 0.3 mg IM DIRECTED PRN docusate sodium 100 mg Tablet 100 mg PO BID duloxetine [Cymbalta] 30 mg Capsule,Delayed Release(Dr/Ec) 30 mg PO DAILY
[2022-12-17 19:14] LABS: Abs Immature Grans 0.04 10^3/uL (0.0-0.06); Absolute Basophil Count 0.01 10^3/uL (0.0-0.2); Absolute Lymphocyte Count 1.25 10^3/uL (1.2-3.4); Absolute Monocyte Count 0.62 10^3/uL (0.1-0.8); Absolute Neutrophil Count 6.11 10^3/uL (1.2-6.7); Basophils % 0.1; HCT 34.6 % (36.0-46.0); HGB 11.2 g/dL (11.2-15.7); Immature Grans % 0.5; Lymphocytes % 15.6; MCHC 32.4 % (32.0-36.0); MCV 90 fL (80-95); MPV 8.7 fL (8.0-11.0); Monocytes % 7.7; Neutrophils % 76.1; Platelet Count 250 10^3/uL (130-400); RBC 3.86 10^6/uL (3.93-5.22); RDW 13.9 % (11.7-14.6); RDW-SD 44.6 fL; WBC 8.03 10^3/uL (4.4-10.8)
[2022-12-17 19:29] LABS: ALT 22 U/L (14-59); AST 10 U/L (15-37); Albumin 3.7 g/dL (3.4-5.0); Alkaline Phosphatase 90 U/L (46-116); Anion Gap 8.8 mmol/L (3-11); BUN 17 mg/dL (7-18); Bilirubin, Total 0.3 mg/dL (0.2-1.0); CO2 25.2 mmol/L (21.0-32.0); CREATININE 0.8 mg/dL (0.55-1.02); Calcium 9.2 mg/dL (8.5-10.1); Chloride 105 mmol/L (98-107); Estimated GFR 101.59 (mL/min/1.73m2); Glucose 108 mg/dL (74-106); Lipase 39 U/L (16-77); Potassium 4.3 mmol/L (3.5-5.1); Sodium 139 mmol/L (136-145); Total Protein 7.1 g/dL (6.4-8.2)
[2022-12-17] MEDS: Normal Saline Flush 10 ML SYR IVP (19:30)
[2022-12-17] MEDS: LORazepam 2 MG/ML VIAL 1 MG IVP (19:31)
[2022-12-17] MEDS: Omnipaque 350 MG/ML 100 ML BTL IJ (19:47)
[2022-12-17] MEDS: Normal Saline - Diluent 50 ML VIAL IJ (19:47)
--- NOTE | 2022-12-17 20:34 | W.EDPROG ---
Date of service: 12/17/22 Time of Service: 20:00 Medical Decision Making This patient was signed out to me. Please see previous notes for H&P and initial eval. In brief, patient with hx of borderline personality disorder presented on MH warrant with HI/SI, pending voluntary psych placement. On record review from this visit, had borderline hypothyroid on initial labs; repeat TSH today was normal. Various somatic concerns throughout stay; has had reassuring imaging of foot/ankle/shoulder. Thjs evening with RLQ abdominal pain not relieved by medication. CT pending at time of signout. CT as below, no appendicitis or intraabdominal pathology; incidental small right pleural effusion. Overnight continued to complain of nausea unrelieved by zofran; given PO ativan. Subsequently slept overnight. No behavioral issues overnight. Signed out to oncoming physician at 0800, plan remains to voluntary inpatient psychiatric treatment. Imaging Data Radiologic Study: Imaging: CT Scan Radiologist's impression: IMPRESSION: 1. ? No acute findings in the abdomen and pelvis. 2. ? Small right pleural effusion Lab Data Lab results reviewed: Yes I reviewed the patient's lab results. Labs: Laboratory Tests Range/Units 12/14/22 12/14/22 12/14/22 22:00 22:00 23:45 WBC (4.4-10.8) 10^3/uL RBC (3.93-5.22) 10^6/uL Hgb (11.2-15.7) g/dL Hct (36.0-46.0) % MCV (80-95) fL MCH (27.0-33.0) pg MCHC (32.0-36.0) % RDW (11.7-14.6) % Plt Count (130-400) 10^3/uL MPV (8.0-11.0) fL Immature Gran % Neutrophils % Lymphocytes % Monocytes % Eosinophils % Basophils % Nucleated RBC % (0.0-0.3) % Absolute Neutrophils (1.2-6.7) 10^3/uL Absolute Lymphocytes (1.2-3.4) 10^3/uL Absolute Monocytes (0.1-0.8) 10^3/uL Absolute Eosinophils (0.0-0.7) 10^3/uL Absolute Basophils (0.0-0.2) 10^3/uL Sodium (136-145) mmol/L 137 Potassium (3.5-5.1) mmol/L 3.5 Chloride (98-107) mmol/L 104 Carbon Dioxide (21.0-32.0) mmol/L 22.8 Anion Gap (3-11) mmol/L 10.2 BUN (7-18) mg/dL 20 H Creatinine (0.55-1.02) mg/dL 1.0 Est GFR (CKD-EPI 2020) (mL/min/1.73m2) 77.72 Glucose (74-106) mg/dL 114 H Calcium (8.5-10.1) mg/dL 9.1 Total Bilirubin (0.2-1.0) mg/dL 0.5 AST (15-37) U/L 15 ALT (14-59) U/L 21 Alkaline Phosphatase (46-116) U/L 88 Total Protein (6.4-8.2) g/dL 7.5 Albumin (3.4-5.0) g/dL 3.9 Lipase (16-77) U/L TSH (0.36-3.74) uIU/mL 6.42 H Free T4 (0.76-1.46) ng/dL 0.73 L Urine Color (Yellow) Yellow Urine Clarity (Clear) Clear Urine pH (5-8) 6.5 Ur Specific [place] (1.005-1.025) 1.025 Urine Protein (Negative) mg/dL Negative Urine Ketones (Negative) mg/dL Negative Urine Blood (Negative) Negative Urine Nitrite (Negative) Negative Urine Bilirubin (Negative) Negative Urine Urobilinogen (Up to 0.2) mg/dL 0.2 Ur Leukocyte Esterase (Negative) Negative Urine Glucose (Negative) mg/dL Negative Salicylates (<2.8) mg/dL Urine Opiates Screen (Negative) Negative Urine Methadone Screen (Negative) Negative Acetaminophen (10-30) ug/mL Ur Barbiturates Screen (Negative) Negative Ur Tricyclics Screen (Negative) Negative Ur Amphetamines Screen (Negative) Negative U Benzodiazepines Scrn (Negative) Negative Urine Cocaine Screen (Negative) Negative Ur THC Screen (Negative) Negative Ethyl Alcohol (<10) mg/dL < 3.0 COVID-19 Source SARS-CoV-2 (PCR) (Negative) Influenza Type A (PCR) (Negative) Influenza Type B (PCR) (Negative) RSV (PCR) (Negative) Range/Units 12/14/22 12/14/22 12/17/22 23:45 23:45 00:28 WBC (4.4-10.8) 10^3/uL 10.64 RBC (3.93-5.22) 10^6/uL 3.95 Hgb (11.2-15.7) g/dL 11.5 Hct (36.0-46.0) % 35.1 L MCV (80-95) fL 89 MCH (27.0-33.0) pg 29.1 MCHC (32.0-36.0) % 32.8 RDW (11.7-14.6) % 13.8 Plt Count (130-400) 10^3/uL 260 MPV (8.0-11.0) fL 8.9 Immature Gran % 0.5 Neutrophils % 70.2 Lymphocytes % 22.7 Monocytes % 6.5 Eosinophils % 0.0 Basophils % 0.1 Nucleated RBC % (0.0-0.3) % 0.0 Absolute Neutrophils (1.2-6.7) 10^3/uL 7.47 H Absolute Lymphocytes (1.2-3.4) 10^3/uL 2.42 Absolute Monocytes (0.1-0.8) 10^3/uL 0.69 Absolute Eosinophils (0.0-0.7) 10^3/uL 0.00 Absolute Basophils (0.0-0.2) 10^3/uL 0.01 Sodium (136-145) mmol/L Potassium (3.5-5.1) mmol/L Chloride (98-107) mmol/L Carbon Dioxide (21.0-32.0) mmol/L Anion Gap (3-11) mmol/L BUN (7-18) mg/dL Creatinine (0.55-1.02) mg/dL Est GFR (CKD-EPI 2020) (mL/min/1.73m2) Glucose (74-106) mg/dL Calcium (8.5-10.1) mg/dL Total Bilirubin (0.2-1.0) mg/dL AST (15-37) U/L ALT (14-59) U/L Alkaline Phosphatase (46-116) U/L Total Protein (6.4-8.2) g/dL Albumin (3.4-5.0) g/dL Lipase (16-77) U/L TSH (0.36-3.74) uIU/mL Free T4 (0.76-1.46) ng/dL Urine Color (Yellow) Urine Clarity (Clear) Urine pH (5-8) Ur Specific [place] (1.005-1.025) Urine Protein (Negative) mg/dL Urine Ketones (Negative) mg/dL Urine Blood (Negative) Urine Nitrite (Negative) Urine Bilirubin (Negative) Urine Urobilinogen (Up to 0.2) mg/dL Ur Leukocyte Esterase (Negative) Urine Glucose (Negative) mg/dL Salicylates (<2.8) mg/dL < 2.8 Urine Opiates Screen (Negative) Urine Methadone Screen (Negative) Acetaminophen (10-30) ug/mL < 2 Ur Barbiturates Screen (Negative) Ur Tricyclics Screen (Negative) Ur Amphetamines Screen (Negative) U Benzodiazepines Scrn (Negative) Urine Cocaine Screen (Negative) Ur THC Screen (Negative) Ethyl Alcohol (<10) mg/dL COVID-19 Source Nasopharynx SARS-CoV-2 (PCR) (Negative) Negative Influenza Type A (PCR) (Negative) Negative Influenza Type B (PCR) (Negative) Negative RSV (PCR) (Negative) Negative Range/Units 12/17/22 12/17/22 12/17/22 10:24 19:07 19:07 WBC (4.4-10.8) 10^3/uL 8.03 RBC (3.93-5.22) 10^6/uL 3.86 L Hgb (11.2-15.7) g/dL 11.2 Hct (36.0-46.0) % 34.6 L MCV (80-95) fL 90 MCH (27.0-33.0) pg 29.0 MCHC (32.0-36.0) % 32.4 RDW (11.7-14.6) % 13.9 Plt Count (130-400) 10^3/uL 250 MPV (8.0-11.0) fL 8.7 Immature Gran % 0.5 Neutrophils % 76.1 Lymphocytes % 15.6 Monocytes % 7.7 Eosinophils % 0.0 Basophils % 0.1 Nucleated RBC % (0.0-0.3) % 0.0 Absolute Neutrophils (1.2-6.7) 10^3/uL 6.11 Absolute Lymphocytes (1.2-3.4) 10^3/uL 1.25 Absolute Monocytes (0.1-0.8) 10^3/uL 0.62 Absolute Eosinophils (0.0-0.7) 10^3/uL 0.00 Absolute Basophils (0.0-0.2) 10^3/uL 0.01 Sodium (136-145) mmol/L 139 Potassium (3.5-5.1) mmol/L 4.3 Chloride (98-107) mmol/L 105 Carbon Dioxide (21.0-32.0) mmol/L 25.2 Anion Gap (3-11) mmol/L 8.8 BUN (7-18) mg/dL 17 Creatinine (0.55-1.02) mg/dL 0.8 Est GFR (CKD-EPI 2020) (mL/min/1.73m2) 101.59 Glucose (74-106) mg/dL 108 H Calcium (8.5-10.1) mg/dL 9.2 Total Bilirubin (0.2-1.0) mg/dL 0.3 AST (15-37) U/L 10 L ALT (14-59) U/L 22 Alkaline Phosphatase (46-116) U/L 90 Total Protein (6.4-8.2) g/dL 7.1 Albumin (3.4-5.0) g/dL 3.7 Lipase (16-77) U/L 39 TSH (0.36-3.74) uIU/mL 3.70 Free T4 (0.76-1.46) ng/dL Urine Color (Yellow) Urine Clarity (Clear) Urine pH (5-8) Ur Specific [place] (1.005-1.025) Urine Protein (Negative) mg/dL Urine Ketones (Negative) mg/dL Urine Blood (Negative) Urine Nitrite (Negative) Urine Bilirubin (Negative) Urine Urobilinogen (Up to 0.2) mg/dL Ur Leukocyte Esterase (Negative) Urine Glucose (Negative) mg/dL Salicylates (<2.8) mg/dL Urine Opiates Screen (Negative) Urine Methadone Screen (Negative) Acetaminophen (10-30) ug/mL Ur Barbiturates Screen (Negative) Ur Tricyclics Screen (Negative) Ur Amphetamines Screen (Negative) U Benzodiazepines Scrn (Negative) Urine Cocaine Screen (Negative) Ur THC Screen (Negative) Ethyl Alcohol (<10) mg/dL COVID-19 Source SARS-CoV-2 (PCR) (Negative) Influenza Type A (PCR) (Negative) Influenza Type B (PCR) (Negative) RSV (PCR) (Negative) Sign Out Sign Out Data: Sign Out Comment: This is a 32-year-old female who is brought in after warrant was issued for homicidal and suicidal ideation. She required physical and chemical restraints because she was belligerent and uncooperative. She does have a history of borderline personality disorder. Last updated by Katalina Thomas MD at 12/15/22 01:01 Sign Out Comment: pt voluntary currently for HI and SI, initially had chemical restraint with first provider. [facility] met with her after and is willing to seek voluntary placement but if she decides to leave would likely be made involuntary. Last updated by Rosendo Cleary MD at 12/15/22 01:25 Sign Out Comment: Stable throughout the day. Did complain of foot pain. X-ray was done and was negative. Given Valium voluntarily this evening. Last updated by Bertram Mckenzie DO at 12/15/22 20:00 Sign Out Comment: toradol tylenol and ativan overnigh, no issues; awaiting placement Last updated by Jeremiah Blankenship MD at 12/16/22 07:17 Sign Out Comment: seeking voluntary placement for si/hi Last updated by Rosendo Cleary MD at 12/16/22 09:01 Sign Out Comment: Required a single dose of Ativan this afternoon. Received night meds. Remains voluntary for psych admission. Last updated by Jan Ayala MD at 12/16/22 22:46 Sign Out Comment: The patient complained of a sore throat during the night. On exam she had some nasal congestion and is s/p tonsillectomy. She has a patent airway and has normal phonation. Flu/COVID/ RSV is negative. The patient received APAP. The patient did not receive her pm meds last night. We will resume today. May want to consult hospital medicine or endocrinology for abnormal TSH and free T4. Last updated by Katalina Thomas MD at 12/17/22 07:13 Sign Out Comment: voluntary for si/hi, no issues during shift until around 630pm she started crying and was tearful about having severe right lower abdomen pain, reassessed after toradol and still having pain so pending ct abd/pelvis. Last updated by Rosendo Cleary MD at 12/17/22 18:59 Sign Out Comment: Voluntary for SI/HI, RLQ abdominal pain yesterday; CT negative for intrabdominal/pelvic pathology, does have small right pleural effusion. Given ativan for nausea. No behavioral events overnight. Remains pending placement. Last updated by Felicity Newell MD at 12/18/22 05:06 Discharge Plan Discharge Details Chief Complaint: PsychEval Clinical Impression: Suicidal ideation, Sprain of left foot Primary Care Provider: Karma Recinos ED Provider: Felicity Newell Home Meds and New Rx's Prescriptions: No Action topiramate 25 mg tablet 125 mg BID Patient Comments: TAKE ONE TABLET BY MOUTH TWICE A DAY WITH 100MG TAB. loratadine 10 mg tablet 10 mg QDAY Patient Comments: TAKE ONE TABLET BY MOUTH EVERY DAY Ajovy Autoinjector 225 mg/1.5 mL auto-injector 225 mg SUBCUT QMONTH cyanocobalamin (vitamin B-12) 1,000 mcg tablet 1,000 mcg QDAY clozapine 100 mg Tablet 100 mg PO QAM Rx Instructions: Total dose 125mg Qam, 50mg HS clozapine 25 mg Tablet 25 mg PO QAM Rx Instructions: 125mg Qam, 50mg HS clozapine 50 mg Tablet 50 mg PO HS Rx Instructions: 125mg Qam, 50mg HS trazodone 50 mg Tablet 50 mg PO HS prazosin 5 mg Capsule 5 mg PO HS oxcarbazepine [Trileptal] 300 mg Tablet 300 mg PO BID omeprazole 20 mg Capsule,Delayed Release(Dr/Ec) 20 mg PO DAILY epinephrine [EpiPen 2-Evans] 0.3 mg/0.3 mL Auto-Injector 0.3 mg IM DIRECTED PRN docusate sodium 100 mg Tablet 100 mg PO BID duloxetine [Cymbalta] 30 mg Capsule,Delayed Release(Dr/Ec) 30 mg PO DAILY
--- NOTE | 2022-12-17 20:47 | DI.VRAD_ITS ---
PROCEDURE INFORMATION: Exam: CT Abdomen And Pelvis With Contrast Exam date and time: 12/17/2022 7:56 PM Age: 32 years old Clinical indication: Localized; Right lower quadrant (rlq); Patient HX: RT lower abdominal pain TECHNIQUE: Imaging protocol: Computed tomography of the abdomen and pelvis with contrast. Contrast material: OMNIPAQUE 350; Contrast volume: 100 ml; Contrast route: INTRAVENOUS (IV); COMPARISON: CT Private^ROUTINE ABDOMEN PELVIS WITH CONTRAST (Adult) 01/27/2018 7:09 PM FINDINGS: Lungs: Small right pleural effusion. No consolidation. Liver: Normal. No mass. Gallbladder and bile ducts: Normal. No calcified stones. No ductal dilation. Pancreas: Normal. No ductal dilation. Spleen: Normal. No splenomegaly. Adrenal glands: Normal. No mass. Kidneys and ureters: Normal. No hydronephrosis. Stomach and bowel: Unremarkable. No obstruction. No mucosal thickening. Appendix: No evidence of appendicitis. Intraperitoneal space: Unremarkable. No free air. No significant fluid collection. Vasculature: Unremarkable. No abdominal aortic aneurysm. Lymph nodes: Unremarkable. No enlarged lymph nodes. Urinary bladder: Unremarkable as visualized. Reproductive: Ovaries are grossly unremarkable. No adnexal masses. Intrauterine device within the uterus. Bones/joints: Unremarkable. No acute fracture. Soft tissues: Unremarkable. IMPRESSION: 1. No acute findings in the abdomen and pelvis. 2. Small right pleural effusion Dictated and Authenticated by: Phillip Ramirez MD. Ordering:NASIR Robbins MD
[2022-12-17] MEDS: Prazosin 5 MG CAP PO (22:35)
[2022-12-17] MEDS: traZODone 50 MG TAB PO (22:36)
--- NOTE | 2022-12-17 23:30 | NUR.NOTE ---
Nursing Note: Pt c/o headache and congestion. Pt requested IV fluids multiple times. ED MD aware. MD advised pt that she could take PO fluids.
[2022-12-17] MEDS: LORazepam 1 MG TAB PO (23:57)
--- NOTE | 2022-12-18 04:27 | NUR.NOTE ---
Nursing Note: Pt c/o headache and congestion. Pt requested IV fluids multiple times. ED MD aware. MD advised pt that she could take PO fluids.
--- NOTE | 2022-12-18 08:54 | W.EDPROG ---
Date of service: 12/18/22 Time of Service: 08:54 Medical Decision Making pt currently sleeping, no issues on prior shift, ct abd/pelvis negative, will continue to monitor until placement found Sign Out Sign Out Data: Sign Out Comment: This is a 32-year-old female who is brought in after warrant was issued for homicidal and suicidal ideation. She required physical and chemical restraints because she was belligerent and uncooperative. She does have a history of borderline personality disorder. Last updated by Katalina Thomas MD at 12/15/22 01:01 Sign Out Comment: pt voluntary currently for HI and SI, initially had chemical restraint with first provider. [facility] met with her after and is willing to seek voluntary placement but if she decides to leave would likely be made involuntary. Last updated by Rosendo Cleary MD at 12/15/22 01:25 Sign Out Comment: Stable throughout the day. Did complain of foot pain. X-ray was done and was negative. Given Valium voluntarily this evening. Last updated by Bertram Mckenzie DO at 12/15/22 20:00 Sign Out Comment: toradol tylenol and ativan overnigh, no issues; awaiting placement Last updated by Jeremiah Blankenship MD at 12/16/22 07:17 Sign Out Comment: seeking voluntary placement for si/hi Last updated by Rosendo Cleary MD at 12/16/22 09:01 Sign Out Comment: Required a single dose of Ativan this afternoon. Received night meds. Remains voluntary for psych admission. Last updated by Jan Ayala MD at 12/16/22 22:46 Sign Out Comment: The patient complained of a sore throat during the night. On exam she had some nasal congestion and is s/p tonsillectomy. She has a patent airway and has normal phonation. Flu/COVID/ RSV is negative. The patient received APAP. The patient did not receive her pm meds last night. We will resume today. May want to consult hospital medicine or endocrinology for abnormal TSH and free T4. Last updated by Katalina Thomas MD at 12/17/22 07:13 Sign Out Comment: voluntary for si/hi, no issues during shift until around 630pm she started crying and was tearful about having severe right lower abdomen pain, reassessed after toradol and still having pain so pending ct abd/pelvis. Last updated by Rosendo Cleary MD at 12/17/22 18:59 Sign Out Comment: Voluntary for SI/HI, RLQ abdominal pain yesterday; CT negative for intrabdominal/pelvic pathology, does have small right pleural effusion. Given ativan for nausea. No behavioral events overnight. Remains pending placement. Last updated by Felicity Newell MD at 12/18/22 05:06 Discharge Plan Discharge Details Chief Complaint: PsychEval Clinical Impression: Suicidal ideation, Sprain of left foot, Abdominal pain Primary Care Provider: Karma Recinos ED Provider: Rosendo Cleary Home Meds and New Rx's Prescriptions: No Action topiramate 25 mg tablet 125 mg BID Patient Comments: TAKE ONE TABLET BY MOUTH TWICE A DAY WITH 100MG TAB. loratadine 10 mg tablet 10 mg QDAY Patient Comments: TAKE ONE TABLET BY MOUTH EVERY DAY Ajovy Autoinjector 225 mg/1.5 mL auto-injector 225 mg SUBCUT QMONTH cyanocobalamin (vitamin B-12) 1,000 mcg tablet 1,000 mcg QDAY clozapine 100 mg Tablet 100 mg PO QAM Rx Instructions: Total dose 125mg Qam, 50mg HS clozapine 25 mg Tablet 25 mg PO QAM Rx Instructions: 125mg Qam, 50mg HS clozapine 50 mg Tablet 50 mg PO HS Rx Instructions: 125mg Qam, 50mg HS trazodone 50 mg Tablet 50 mg PO HS prazosin 5 mg Capsule 5 mg PO HS oxcarbazepine [Trileptal] 300 mg Tablet 300 mg PO BID omeprazole 20 mg Capsule,Delayed Release(Dr/Ec) 20 mg PO DAILY epinephrine [EpiPen 2-Evans] 0.3 mg/0.3 mL Auto-Injector 0.3 mg IM DIRECTED PRN docusate sodium 100 mg Tablet 100 mg PO BID duloxetine [Cymbalta] 30 mg Capsule,Delayed Release(Dr/Ec) 30 mg PO DAILY
[2022-12-18] MEDS: DULoxetine 30 MG CAP PO (09:12)
[2022-12-18] MEDS: OXcarbazepine 150 MG TAB 300 MG PO (09:12)
[2022-12-18 09:13] VITALS: BP 113/68; PULSE 80; RESP 16; TEMP 36.6; O2SAT 96
[2022-12-18] MEDS: Ketorolac 15 MG/ML VIAL IM (09:19)
[2022-12-18] MEDS: Lidocaine 5% Patch 1 PATCH (09:20)
--- NOTE | 2022-12-18 14:16 | ED.PROG_ITS ---
Date of service: 12/18/22 Time of Service: 14:17 Medical Decision Making pt decided she did not want to stay and wanted to leave, tried to verbally deescalate and have her stay but she would not, started EE paperwork and patient eloped from the ED. [facility] is aware, contact vsp and will likely return on EE status. Sign Out Sign Out Data: Sign Out Comment: This is a 32-year-old female who is brought in after warrant was issued for homicidal and suicidal ideation. She required physical and chemical restraints because she was belligerent and uncooperative. She does have a history of borderline personality disorder. Last updated by Katalina Thomas MD at 12/15/22 01:01 Sign Out Comment: pt voluntary currently for HI and SI, initially had chemical restraint with first provider. [facility] met with her after and is willing to seek voluntary placement but if she decides to leave would likely be made involuntary. Last updated by Rosendo Cleary MD at 12/15/22 01:25 Sign Out Comment: Stable throughout the day. Did complain of foot pain. X-ray was done and was negative. Given Valium voluntarily this evening. Last updated by Bertram Mckenzie DO at 12/15/22 20:00 Sign Out Comment: toradol tylenol and ativan overnigh, no issues; awaiting placement Last updated by Jeremiah Blankenship MD at 12/16/22 07:17 Sign Out Comment: seeking voluntary placement for si/hi Last updated by Rosendo Cleary MD at 12/16/22 09:01 Sign Out Comment: Required a single dose of Ativan this afternoon. Received night meds. Remains voluntary for psych admission. Last updated by Jan Ayala MD at 12/16/22 22:46 Sign Out Comment: The patient complained of a sore throat during the night. On exam she had some nasal congestion and is s/p tonsillectomy. She has a patent airway and has normal phonation. Flu/COVID/ RSV is negative. The patient received APAP. The patient did not receive her pm meds last night. We will resume today. May want to consult hospital medicine or endocrinology for abnormal TSH and free T4. Last updated by Katalina Thomas MD at 12/17/22 07:13 Sign Out Comment: voluntary for si/hi, no issues during shift until around 630pm she started crying and was tearful about having severe right lower abdomen pain, reassessed after toradol and still having pain so pending ct abd/pelvis. Last updated by Rosendo Cleary MD at 12/17/22 18:59 Sign Out Comment: Voluntary for SI/HI, RLQ abdominal pain yesterday; CT negative for intrabdominal/pelvic pathology, does have small right pleural effusion. Given ativan for nausea. No behavioral events overnight. Remains pending placement. Last updated by Felicity Newell MD at 12/18/22 05:06 Discharge Plan Disposition Patient Disposition: Eloped Condition: Poor Discharge Details Chief Complaint: PsychEval Clinical Impression: Suicidal ideation, Sprain of left foot, Abdominal pain Primary Care Provider: Karma Recinos ED Provider: Rosendo Cleary Home Meds and New Rx's Prescriptions: No Action topiramate 25 mg tablet 125 mg BID Patient Comments: TAKE ONE TABLET BY MOUTH TWICE A DAY WITH 100MG TAB. loratadine 10 mg tablet 10 mg QDAY Patient Comments: TAKE ONE TABLET BY MOUTH EVERY DAY Ajovy Autoinjector 225 mg/1.5 mL auto-injector 225 mg SUBCUT QMONTH cyanocobalamin (vitamin B-12) 1,000 mcg tablet 1,000 mcg QDAY clozapine 100 mg Tablet 100 mg PO QAM Rx Instructions: Total dose 125mg Qam, 50mg HS clozapine 25 mg Tablet 25 mg PO QAM Rx Instructions: 125mg Qam, 50mg HS clozapine 50 mg Tablet 50 mg PO HS Rx Instructions: 125mg Qam, 50mg HS trazodone 50 mg Tablet 50 mg PO HS prazosin 5 mg Capsule 5 mg PO HS oxcarbazepine [Trileptal] 300 mg Tablet 300 mg PO BID omeprazole 20 mg Capsule,Delayed Release(Dr/Ec) 20 mg PO DAILY epinephrine [EpiPen 2-Evans] 0.3 mg/0.3 mL Auto-Injector 0.3 mg IM DIRECTED PRN docusate sodium 100 mg Tablet 100 mg PO BID duloxetine [Cymbalta] 30 mg Capsule,Delayed Release(Dr/Ec) 30 mg PO DAILY
== END 2022-12-18 14:02 | disposition left against medical advice (07) ==
PROVIDERS: Emergency Medicine Emergency Medical Services; Emergency Provider Emergency Medicine
DX: R45.850 Homicidal ideations (principal); R45.851 Suicidal ideations; F60.3 Borderline personality disorder; M25.572 Pain in left ankle and joints of left foot; F17.200 Nicotine dependence, unspecified, uncomplicated; R45.1 Restlessness and agitation; Z53.29 Procedure and treatment not carried out because of patient's decision for other reasons; R10.31 Right lower quadrant pain; J90 Pleural effusion, not elsewhere classified; R11.0 Nausea; Z78.1 Physical restraint status; E07.89 Other specified disorders of thyroid
CPT/HCPCS: 36415; 80053; 80307; 81025; 83690; 87637; 93005; 96372; 99285; 73030; 73610; 73630; 73700; 74177; 80320; 80329; 81003; 84439; 84443; 85025; 93010; J1885; J2060; J3490

== ENCOUNTER 2022-12-18 14:53 | Emergency (ER) | payer MEDICARE, MEDICAID, SELFPAY ==
[2022-12-18] VITALS (11 sets, daily range): BP systolic 111–128; BP diastolic 71–84; PULSE 63–84; RESP 16–18; TEMP 36.4; O2SAT 93–97
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
[2022-12-18] MEDS: Ketamine 500 MG/10 ML VIAL 360 MG IM (15:59)
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
[2022-12-18] MEDS: Ondansetron 4 MG/2 ML VIAL IM (17:00)
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
[2022-12-18] MEDS: Ketorolac 15 MG/ML VIAL IM (19:24)
[2022-12-18] MEDS: LORazepam 1 MG TAB 2 MG PO (19:24)
== END 2022-12-18 19:34 | disposition left against medical advice (07) ==
PROVIDERS: Emergency Provider Emergency Medicine
DX: R45.851 Suicidal ideations (principal); F60.3 Borderline personality disorder; R45.1 Restlessness and agitation; E11.9 Type 2 diabetes mellitus without complications; F17.210 Nicotine dependence, cigarettes, uncomplicated
CPT/HCPCS: 96372; 99285; 99284; J1885; J2405

== ENCOUNTER 2022-12-18 19:37 | Emergency (ER) | payer MEDICARE, MEDICAID, SELFPAY ==
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
[2022-12-18] MEDS: LORazepam 2 MG/ML VIAL IM (19:50)
[2022-12-18] MEDS: diphenhydrAMINE 50 MG/ML VIAL IM (19:50)
[2022-12-18] MEDS: OLANZapine 10 MG VIAL IM (20:13)
--- NOTE | 2022-12-19 01:44 | W.EDPROG ---
Date of service: 12/19/22 Time of Service: 02:00 Medical Decision Making Patient has been in four-point restraints since the evening. I was unaware of this. The patient did get medication including IM Zyprexa, diphenhydramine, and Ativan. According to nursing she had received ketamine earlier. She was placed in four-point restraints after eloping multiple times and exhibiting violent behavior. The patient has been quiet and sleeping. We have released her ankles. I have renewed the restraint order at nursing request though it does say q2 hr eval. 0210: Patient reports that arm restraints as well. She then got up and asked for the bathroom. She was escorted there without incident. She does appear quite drowsy and lethargic. 0230: pt. standing in doorway, security and aide present. 0245: Pt. took off and laid down outside. She was brought back in by staff, medicated and restrained. See other note. Sign Out Sign Out Data: Sign Out Comment: PT was here several days voluntary for si/hi, eloped and placed under EE status, eloped again and was restrained several hours. She was calm and verbally agreed she wasn't going to elope, but then eloped again. Arrives back with PD agitated, getting physical restraints and chemical restraints with zyprexa, ativan and benadryl. Last updated by Rosendo Cleary MD at 12/18/22 19:46 Sign Out Comment: SI/HI, borderline. Second cert recommended outpatient treatment. No longer on involuntary hold. Pending safety planning with guarding and outpatient providers, if acceptable plan created plan for discharge home. Last updated by Felicity Newell MD at 12/19/22 15:20 Discharge Plan Disposition Patient Disposition: Home Discharge Details Clinical Impression: Suicidal ideation Primary Care Provider: Karma Recinos ED Provider: Myles Ridley Home Meds and New Rx's Prescriptions: New quetiapine 25 mg tablet 25 mg PO BID PRN (Reason: anxiety) Qty: 14 0RF hydroxyzine HCl 25 mg tablet 25 mg PO BID PRNQty: 14 0RF No Action topiramate 25 mg tablet 125 mg BID Patient Comments: TAKE ONE TABLET BY MOUTH TWICE A DAY WITH 100MG TAB. loratadine 10 mg tablet 10 mg QDAY Patient Comments: TAKE ONE TABLET BY MOUTH EVERY DAY Ajovy Autoinjector 225 mg/1.5 mL auto-injector 225 mg SUBCUT QMONTH cyanocobalamin (vitamin B-12) 1,000 mcg tablet 1,000 mcg QDAY clozapine 100 mg Tablet 100 mg PO QAM Rx Instructions: Total dose 125mg Qam, 50mg HS clozapine 25 mg Tablet 25 mg PO QAM Rx Instructions: 125mg Qam, 50mg HS clozapine 50 mg Tablet 50 mg PO HS Rx Instructions: 125mg Qam, 50mg HS trazodone 50 mg Tablet 50 mg PO HS prazosin 5 mg Capsule 5 mg PO HS oxcarbazepine [Trileptal] 300 mg Tablet 300 mg PO BID omeprazole 20 mg Capsule,Delayed Release(Dr/Ec) 20 mg PO DAILY epinephrine [EpiPen 2-Evans] 0.3 mg/0.3 mL Auto-Injector 0.3 mg IM DIRECTED PRN docusate sodium 100 mg Tablet 100 mg PO BID duloxetine [Cymbalta] 30 mg Capsule,Delayed Release(Dr/Ec) 30 mg PO DAILY Discharge Instructions Instructions: Help Prevent Suicide (ED) Additional Instructions: You were seen in the emergency department for your self harm thoughts. You are given a safety plan. If you do not feel safe at home please return to the emergency department.
[2022-12-19] MEDS: Haloperidol 5 MG/ML VIAL (02:48)
[2022-12-19] MEDS: LORazepam 2 MG/ML VIAL (02:48)
[2022-12-19] MEDS: diphenhydrAMINE 50 MG/ML VIAL (02:48)
[2022-12-19] MEDS: DULoxetine 30 MG CAP PO (09:26)
[2022-12-19] MEDS: Ketorolac 15 MG/ML VIAL IM (09:58)
[2022-12-19] MEDS: Lidocaine 5% Patch 1 PATCH TP ×2 (09:58→18:10)
--- NOTE | 2022-12-19 09:58 | CMSP_ITS ---
Date of service: 12/19/22 Time of Service: 09:58 Care Management Safety Plan Status Status: Involuntary Guardianship if Applicable Guardianship: OPG (Nola Awan) Reason for Wait Reason for Wait: Inpatient Admission Safety Plan Safety Plan: Safety plan?has been established to meet the needs of the patient, and consideration of the care team, to adhere to patient goals, identify restrictions based on behavioral status, address nutrition, and determine allowed personal belongings, tools for hygiene and personal care. Determine level of activity including ambulation, level of supervision, visitors, and determine privileges based on behaviors and level of engagement by pt. ? SAFETY PLAN: 1. Will remain on SI/HI precautions. In Paper Clothes 2. Will remain in room under direct supervision of one-on-one staff at all times provided by [employer]; CESAR, RADIAL SAW OPERATOR pipeline maintenance supervisor. 3. May have paper cups, plates, finger foods as well as a cardboard spoon 4. Follow [facility] Management of the Admitted Behavioral Health Patient policy. 5. Comfort bath system only. 6. No personal belongings; soft items permitted at RN discretion. 7. Visitors: Per [facility] Visitor Policy and at RN discretion. 8. Activities: soft cart items, television and other activities at RN discretion. 9. ?Bathroom privileges with escort in the ED. 10. Phone: contact limited to family and legal guardian at this time, via [employer] hospital phone at RN discretion. 11. Due to INVOLUNTARY status, patient is being held at [facility] by the Department of Mental Health ([facility]) until 2nd certification by [facility] Psychiatrist can be performed (within 24 hours). Staff will provide de-escalation support (CPI) as needed. If patient wishes to leave [facility], staff will contact [facility] Crisis Screener ([phone]) and On-Call Pharmacy Delivery Driver ([phone]) as soon as possible. In the event of elopement, notify [place] [employer] ([phone]). Patient is currently involuntarily at [facility]. [facility] Frontline Machine Clothing Replacer will continue seeking placement. Please contact the [facility] Delivery Driver ([phone]) for any needed changes to Safety Plan. Safety plan has been provided to interdepartmental care team. Patient will be transported by [employer] at time of discharge.
--- NOTE | 2022-12-19 09:58 | PDOC.CMSAFE ---
Date of service: 12/19/22 Time of Service: 09:58 Care Management Safety Plan Status Status: Involuntary Guardianship if Applicable Guardianship: OPG (Nola Awan) Reason for Wait Reason for Wait: Inpatient Admission Safety Plan Safety Plan: Safety plan?has been established to meet the needs of the patient, and consideration of the care team, to adhere to patient goals, identify restrictions based on behavioral status, address nutrition, and determine allowed personal belongings, tools for hygiene and personal care. Determine level of activity including ambulation, level of supervision, visitors, and determine privileges based on behaviors and level of engagement by pt. ? SAFETY PLAN: 1. Will remain on SI/HI precautions. In Paper Clothes 2. Will remain in room under direct supervision of one-on-one staff at all times provided by [employer]; CESAR, CLEANING VALIDATION CONSULTANT utility inspector. 3. May have paper cups, plates, finger foods as well as a cardboard spoon 4. Follow [facility] Management of the Admitted Behavioral Health Patient policy. 5. Comfort bath system only. 6. No personal belongings; soft items permitted at RN discretion. 7. Visitors: Per [facility] Visitor Policy and at RN discretion. 8. Activities: soft cart items, television and other activities at RN discretion. 9. ?Bathroom privileges with escort in the ED. 10. Phone: contact limited to family and legal guardian at this time, via [employer] hospital phone at RN discretion. 11. Due to INVOLUNTARY status, patient is being held at [facility] by the Department of Mental Health ([facility]) until 2nd certification by [facility] Psychiatrist can be performed (within 24 hours). Staff will provide de-escalation support (CPI) as needed. If patient wishes to leave [facility], staff will contact [facility] Crisis Screener ([phone]) and On-Call Security Operations Analyst ([phone]) as soon as possible. In the event of elopement, notify [place] [employer] ([phone]). Patient is currently involuntarily at [facility]. [facility] Frontline Glove Factory Sewer will continue seeking placement. Please contact the Principal Examiner Security Operations Analyst ([phone]) for any needed changes to Safety Plan. Safety plan has been provided to interdepartmental care team. Patient will be transported by [employer] at time of discharge.
[2022-12-19] MEDS: OXcarbazepine 150 MG TAB 300 MG PO (10:34)
--- NOTE | 2022-12-19 10:39 | ED.PROG_ITS ---
Date of service: 12/19/22 Time of Service: 09:00 Medical Decision Making This patient was signed out to me. Please see previous notes for H&P, initial eval, and clinical course. In brief, patient presented several days ago initially for voluntary psychiatric placement for SI/HI. Subsequently EEd/involuntary without multiple elopement attempts, some successful. Currently in restraints. Assessed at 0910; patient calm and behaving appropriately. Restraints removed. Second cert completed; felt to be low-risk for acute harm to self or others and inappropriate for inpatient treatment. Pending safety-planning with outpatient treatment team and guarding. Signed out to oncoming physician, plan to disc harge home once adequate safety planning completed. Sign Out Sign Out Data: Sign Out Comment: PT was here several days voluntary for si/hi, eloped and placed under EE status, eloped again and was restrained several hours. She was calm and verbally agreed she wasn't going to elope, but then eloped again. Arrives back with PD agitated, getting physical restraints and chemical restraints with zyprexa, ativan and benadryl. Last updated by Rosendo Cleary MD at 12/18/22 19:46 Discharge Plan Discharge Details Chief Complaint: PsychEval Primary Care Provider: Karma Recinos ED Provider: Felicity Newell Yantis Meds and New Rx's Prescriptions: No Action topiramate 25 mg tablet 125 mg BID Patient Comments: TAKE ONE TABLET BY MOUTH TWICE A DAY WITH 100MG TAB. loratadine 10 mg tablet 10 mg QDAY Patient Comments: TAKE ONE TABLET BY MOUTH EVERY DAY Ajovy Autoinjector 225 mg/1.5 mL auto-injector 225 mg SUBCUT QMONTH cyanocobalamin (vitamin B-12) 1,000 mcg tablet 1,000 mcg QDAY clozapine 100 mg Tablet 100 mg PO QAM Rx Instructions: Total dose 125mg Qam, 50mg HS clozapine 25 mg Tablet 25 mg PO QAM Rx Instructions: 125mg Qam, 50mg HS clozapine 50 mg Tablet 50 mg PO HS Rx Instructions: 125mg Qam, 50mg HS trazodone 50 mg Tablet 50 mg PO HS prazosin 5 mg Capsule 5 mg PO HS oxcarbazepine [Trileptal] 300 mg Tablet 300 mg PO BID omeprazole 20 mg Capsule,Delayed Release(Dr/Ec) 20 mg PO DAILY epinephrine [EpiPen 2-Evans] 0.3 mg/0.3 mL Auto-Injector 0.3 mg IM DIRECTED PRN docusate sodium 100 mg Tablet 100 mg PO BID duloxetine [Cymbalta] 30 mg Capsule,Delayed Release(Dr/Ec) 30 mg PO DAILY
[2022-12-19] MEDS: LORazepam 0.5 MG TAB PO (11:42)
--- NOTE | 2022-12-19 15:04 | W.EDPROG ---
Date of service: 12/19/22 Time of Service: 15:04 Medical Decision Making I received signout on this 40-year-old patient with a history of borderline personality disorder and suicidal ideation. She has been out of restraints since the morning. She has failed her second certification. Plan from [facility] is reportedly to safety plan the patient for home. Will reassess patient once safety plan has been made. 5:35 PM According to nurse Escobedo safety plan made for patient to receive 25 mg p.o. quetiapine twice daily as needed along with 25 mg hydroxyzine twice daily p.o. as needed. I called [facility] and spoke with Edilia. She did not have documentation of this. Patient's care provider will reportedly come to the emergency department. We will touch base with her concerning outpatient medications. Patient was requesting something for her foot as she reportedly had sprained it and has a boot. She will receive 1 g of acetaminophen. 6:08 PM Patient had a printed safety plan listing quetiapine and hydroxyzine as needed. I met with the patient. She felt safe going home. She reported that she did not have access to any firearms. I wrote for 1 week of these new medications. Sign Out Sign Out Data: Sign Out Comment: PT was here several days voluntary for si/hi, eloped and placed under EE status, eloped again and was restrained several hours. She was calm and verbally agreed she wasn't going to elope, but then eloped again. Arrives back with PD agitated, getting physical restraints and chemical restraints with zyprexa, ativan and benadryl. Last updated by Rosendo Cleary MD at 12/18/22 19:46 Sign Out Comment: SI/HI, borderline. Second cert recommended outpatient treatment. No longer on involuntary hold. Pending safety planning with guarding and outpatient providers, if acceptable plan created plan for discharge home. Last updated by Felicity Newell MD at 12/19/22 15:20 Discharge Plan Disposition Patient Disposition: Home Discharge Details Clinical Impression: Suicidal ideation Primary Care Provider: Karma Recinos ED Provider: Myles Ridley Home Meds and New Rx's Prescriptions: New quetiapine 25 mg tablet 25 mg PO BID PRN (Reason: anxiety) Qty: 14 0RF hydroxyzine HCl 25 mg tablet 25 mg PO BID PRNQty: 14 0RF No Action topiramate 25 mg tablet 125 mg BID Patient Comments: TAKE ONE TABLET BY MOUTH TWICE A DAY WITH 100MG TAB. loratadine 10 mg tablet 10 mg QDAY Patient Comments: TAKE ONE TABLET BY MOUTH EVERY DAY Ajovy Autoinjector 225 mg/1.5 mL auto-injector 225 mg SUBCUT QMONTH cyanocobalamin (vitamin B-12) 1,000 mcg tablet 1,000 mcg QDAY clozapine 100 mg Tablet 100 mg PO QAM Rx Instructions: Total dose 125mg Qam, 50mg HS clozapine 25 mg Tablet 25 mg PO QAM Rx Instructions: 125mg Qam, 50mg HS clozapine 50 mg Tablet 50 mg PO HS Rx Instructions: 125mg Qam, 50mg HS trazodone 50 mg Tablet 50 mg PO HS prazosin 5 mg Capsule 5 mg PO HS oxcarbazepine [Trileptal] 300 mg Tablet 300 mg PO BID omeprazole 20 mg Capsule,Delayed Release(Dr/Ec) 20 mg PO DAILY epinephrine [EpiPen 2-Evans] 0.3 mg/0.3 mL Auto-Injector 0.3 mg IM DIRECTED PRN docusate sodium 100 mg Tablet 100 mg PO BID duloxetine [Cymbalta] 30 mg Capsule,Delayed Release(Dr/Ec) 30 mg PO DAILY Discharge Instructions Instructions: Help Prevent Suicide (ED) Additional Instructions: You were seen in the emergency department for your self harm thoughts. You are given a safety plan. If you do not feel safe at home please return to the emergency department.
[2022-12-19] MEDS: Acetaminophen 500 MG TAB 1000 MG PO (18:08)
[2022-12-19] MEDS: QUEtiapine 25 MG TAB PO (18:10)
[2022-12-19] MEDS: hydrOXYzine HCL 25 MG TAB PO (18:11)
== END 2022-12-19 19:18 | disposition home or self-care (01) ==
PROVIDERS: Emergency Provider Emergency Medicine
DX: Z00.8 Encounter for other general examination (principal); R45.851 Suicidal ideations
CPT/HCPCS: 96372; 99285; 99284; J1200; J1630; J1885; J2060; J2405

== ENCOUNTER 2023-04-25 20:28 | Emergency (ER) | payer MEDICARE, MEDICAID, SELFPAY ==
[2023-04-25 20:27] VITALS: BP 136/82; PULSE 86; RESP 18; TEMP 36.6; O2SAT 100
--- NOTE | 2023-04-25 21:00 | DI.RAD_ITS ---
Exam(s) XR SHOULDER RT COMPLETE 2+V EXAM: XR SHOULDER RT COMPLETE 2+V CLINICAL HISTORY: right shoulder pain post trauma. TECHNIQUE: 2D digital imaging was performed. Five views. COMPARISON: CR,XR XR SHOULDER RT COMPLETE 2+V from 12/14/2022 FINDINGS: BONES: No acute fracture is present. No bony destructive lesion is seen. JOINTS: No dislocation present. SOFT TISSUE: Normal. IMPRESSION: Unremarkable radiographs of the right shoulder. DATA REPOSITORY: RADIATION DOSE DELIVERED:
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
[2023-04-25] MEDS: Nicotine 14 MG/24 HR PATCH TD (21:41)
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
[2023-04-25 22:08] LABS: Bilirubin Negative (Negative); Blood Negative (Negative); Clarity Clear (Clear); Glucose Negative (Negative); Ketones Negative (Negative); Leukocyte Esterase Negative (Negative); Nitrite Negative (Negative); Specific Gravity >= 1.030 (1.005-1.025); Urobilinogen 0.2 mg/dL (Up to 0.2); pH 5.5 (5-8)
[2023-04-25 22:24] LABS: *AMPHETAMINES SCREEN URINE Negative (Negative); *BARBITURATES SCREEN URINE Negative (Negative); *BENZODIAZEPINES SCREEN URINE Negative (Negative); Cannabinoids THC Negative (Negative); Cocaine Screen,Urine Negative (Negative); METHADONE URINE SCREEN Negative (Negative); OPIATES URINE SCREEN Negative (Negative)
[2023-04-25 22:28] LABS: Tricyclic Antidepressants Negative (Negative)
--- NOTE | 2023-04-25 23:40 | W.EDPROG ---
Date of service: 04/25/23 Time of Service: 23:40 Medical Decision Making This patient was signed out to me. Please see previous notes for H&P and initial eval. In brief, 32yo F presents with SI, HI, for voluntary psychiatric evaluation. Medically cleared. Awaiting [facility] re-eval and placement. If she leaves, [facility] would like to be notified. Overnight appeared to sleep comfortably. Signed out to oncoming physician, plan remains as above. Quality:SDOH Health Related Social Needs: No Data to Display Sign Out Sign Out Data: Sign Out Comment: voluntary MH status, if requests to leave, reassess with [facility] Last updated by Kelly Ricks PA at 04/25/23 23:36 Sign Out Comment: 32yo F presents with SI, HI, for voluntary psychiatric evaluation. Medically cleared. Awaiting [facility] re-eval and placement. If she leaves, [facility] would like to be notified. Last updated by Felicity Newell MD at 04/26/23 06:15 Discharge Plan Discharge Details Chief Complaint: PsychEval Primary Care Provider: Karma Recinos ED Provider: Felicity Newell Home Meds and New Rx's Prescriptions: No Action topiramate 25 mg tablet 125 mg PO BID Patient Comments: TAKE ONE TABLET BY MOUTH TWICE A DAY WITH 100MG TAB. loratadine 10 mg tablet 10 mg PO QDAY Patient Comments: TAKE ONE TABLET BY MOUTH EVERY DAY Ajovy Autoinjector 225 mg/1.5 mL auto-injector 225 mg SUBCUT QMONTH cyanocobalamin (vitamin B-12) 1,000 mcg tablet 1,000 mcg PO QDAY clozapine 100 mg Tablet 100 mg PO QAM Rx Instructions: Total dose 125mg Qam, 50mg HS clozapine 25 mg Tablet 25 mg PO QAM Rx Instructions: 125mg Qam, 50mg HS clozapine 50 mg Tablet 50 mg PO HS Rx Instructions: 125mg Qam, 50mg HS trazodone 50 mg Tablet 100 mg PO HS prazosin 5 mg Capsule 12 mg PO HS quetiapine 25 mg tablet 25 mg PO BID PRN (Reason: anxiety) Qty: 14 0RF hydroxyzine HCl 25 mg tablet 25 mg PO BID PRNQty: 14 0RF oxcarbazepine [Trileptal] 300 mg Tablet 300 mg PO BID omeprazole 20 mg Capsule,Delayed Release(Dr/Ec) 20 mg PO DAILY epinephrine [EpiPen 2-Evans] 0.3 mg/0.3 mL Auto-Injector 0.3 mg IM DIRECTED PRN docusate sodium 100 mg Tablet 100 mg PO BID duloxetine [Cymbalta] 30 mg Capsule,Delayed Release(Dr/Ec) 30 mg PO DAILY
[2023-04-26] MEDS: Acetaminophen 325 MG TAB 650 MG PO (00:31)
[2023-04-26] MEDS: Topiramate 100 MG TAB PO ×2 (00:32→08:12)
[2023-04-26] MEDS: traZODone 100 MG TAB PO (00:32)
[2023-04-26] MEDS: Acetaminophen 250 mg/Aspirin 250 mg/Caffeine 65 mg TAB 2 EACH PO (00:33)
[2023-04-26] MEDS: Prazosin 5 MG CAP 15 MG PO (00:33)
--- NOTE | 2023-04-26 01:48 | PDOC.MHCN ---
Date of service: 04/25/23 Time of Service: 20:30 PHQ-9 Over the last 2 weeks, how often have you been bothered by any of the following problems? 1. Little interest or pleasure in doing things: more than half the days 2. Feeling down, depressed, or hopeless: nearly every day 3. Trouble falling or staying asleep, or sleeping too much: nearly every day 4. Feeling tired or having little energy: nearly every day 5. Poor appetite or overeating: nearly every day 6. Feeling bad about yourself - or that you are a failure or have let yourself and your family down: nearly every day 7. Trouble concentrating on things, such as reading the newspaper or watching television: nearly every day 8. Moving or speaking so slowly that other people could have noticed? - Or the opposite - being so fidgety or restless that you have been moving around a lot more than usual: nearly every day 9. Thoughts that you would be better off or of hurting yourself in some way: nearly every day Total score: 26 If you checked off any problems, how difficult have these problems made it for you to do your work, take care of things at home, or get along with other people?: somewhat difficult Source: Developed by Drs. Jan Pérez, Aditi Lam, Naldo Huntley and colleagues, with an educational carline from [employer] Suicide Severity Rate CSSRS Have you wished you were or wished you could go to sleep and not wake up?: Yes Have you actually had any thoughts of killing yourself?: Yes CSSRS2 Have you been thinking about how you might do this?: Yes Have you had these thoughts and had some intention of acting on them?: Yes Have you started to work out or worked out the details of how to kill yourself? Do you intend to carry out this plan?: Yes CSSRS3 Have you ever done anything, started to do anything or prepared to do anything to end your life?: No CSSRS4 Was this within the past three months?: No Screening Score Total Score: 4 Screening: Positive Mental Health Emergency Note Release [facility] release signed:: Yes Reason for Visit In the last 2 weeks has the pt presented for ES prior to today?: No Non Suicidal Self Injury Current: No Safety Risk/Harm to Self or Others Current Ideation to Harm Self or Others: Yes to self. Intent: yes, has intent. Plan: yes,has a plan. History of suicide attempt: No history of suicide attempt reported Asssessment/Mental Status Appearance: Disheveled and Poor hygiene Attitude: Cooperative and Guarded Behavior: Unremarkable Speech: Normal Affect: Normal Mood: Depressed Thought process: Unremarkable Hallucinations: yes, Auditory Delusions: No evidence Attention: Unremarkable Perception: Not impaired Orientation: Fully orientated Memory: Intact Insight: Fair Judgement: Fair Neurovegetative Symptoms Sleep: No change (on and off 6 hours ) Appetitie: Decrease Interests: Decrease Energy: Decrease Libido: Not applicable Substance Use: Have you used substances in the last 7 days?: yes, Ciggarettes everyday Impression Client did not make eye contact with this selling underwriter during the entirety of the assessment process. Client reports that she is having suicidal ideations with a plan intent and access. Client described to this selling underwriter a plan of cutting herself along her forearm with the intent to bleed out and . Client reported that she went to [place], her most recent visit, four weeks prior to this assessment. Client rated her intent as 9 out of 10 but did not report any homicidal ideations at this time. Client did not report any non-suicidal self-injury. Client reported that her in home care provider dropped her off at [facility] earlier in the day and has not been back.? Plan/Disposition Recommended Disposition: Hospitalization No. Plan: Client will remain at [facility] in zone B while she waits to be accepted for a voluntary inpatient stay at this time. Client will need daily reassessments until placements is found.? Reports/communication Outcome discussed with: ED/Personnel
[2023-04-26] MEDS: Docusate Sodium 100 MG CAP PO ×2 (08:11→16:46)
[2023-04-26] MEDS: DULoxetine 30 MG CAP PO (08:12)
[2023-04-26] MEDS: OXcarbazepine 150 MG TAB 300 MG PO (08:12)
[2023-04-26] MEDS: Topiramate 25 MG TAB PO (08:12)
[2023-04-26] MEDS: Omeprazole 10 MG CAPCR PO (08:12)
[2023-04-26 08:24] VITALS: BP 111/73; PULSE 75; RESP 16; TEMP 36.6; O2SAT 99
[2023-04-26] MEDS: Lidocaine 5% Patch 1 PATCH (09:41)
--- NOTE | 2023-04-26 10:01 | NUR.NOTE ---
[facility] Counseling Support [facility]; [place]; [phone] Nursing Note:
--- NOTE | 2023-04-26 12:00 | MHPN_ITS ---
Date of service: 04/26/23 Time of Service: 12:00 Mental Health Emergency Note Release [facility] release signed:: Yes Reason for Visit The client is known to [facility] through the ES program only as she frequents the area and ends up in the ED when she does not have a ride back home to [place] with complaints of SI or HI and seeking inpatient treatment. She has been hospitalized before at [facility] and her last hospital stay was a month ago. She was last seen by [facility] last night during her initial evaluation by SAVANNA Dennison. She is not a on going client of [facility] as she is served out of the [facility] in [place]. In the last 2 weeks has the pt presented for ES prior to today?: Unknown Impression The client is a 32 daniel old, single, non female who lives with a Shared Living Provider in the [facility]. Her CSSRS was completed on her initial intake and due to lack of training CAMs could not be completed. She presents voluntarily seeking placement for SI and HI (toward her best friend). A duty to warn was completed. [facility] was already made aware of her stay. Other underrepresented categories are identified by the client as she/her pronouns and she denied any yazidi affiliation. These were all used properly in her assessment. The client presented this am requesting a new cup of coffee from the nurse. She quietly returns to her room where she is watching TV while this clinician enters. She is polite and cooperative. She stated that she is experiencing auditory and visual hallucinations however, her presentation does not suggest this currently. She reported she did not sleep well last night however, is eating fine. The client makes good eye contact and her affect appears normal. Resources [facility] reviewed and given:: Crisis Bed Plan/Disposition Recommended Disposition: Crisis bed, facility contacted. Status of Crisis Bed acceptance: Pending review. Plan: [facility] called and reported that they would like to avoid her coming to them as they are very familiar with her, she was just there in March and hospitalization is not conducive to her treatment. They have not said no however would like other avenues to be looked at. The client was accepted to [facility] C[facility] Bed. Person reported agreement to plan: Yes Reports/communication Outcome discussed with: ED/Personnel
[2023-04-26] MEDS: Omeprazole 20 MG CAPCR 40 MG PO (16:46)
[2023-04-26] MEDS: OXcarbazepine 150 MG TAB 1200 MG PO (16:47)
[2023-04-26] MEDS: traZODone 100 MG TAB 200 MG PO (16:47)
[2023-04-26] MEDS: DULoxetine 30 MG CAP 60 MG PO (16:48)
[2023-04-26 16:56] VITALS: BP 133/79; PULSE 77; TEMP 36.6; O2SAT 100
== END 2023-04-26 16:57 ==
PROVIDERS: Physician Assistant; Emergency Provider Emergency Medicine
DX: M25.511 Pain in right shoulder (principal); R45.850 Homicidal ideations; R45.851 Suicidal ideations; F32.A Depression, unspecified; F91.3 Oppositional defiant disorder; F17.200 Nicotine dependence, unspecified, uncomplicated
CPT/HCPCS: 00123; 80307; 81025; 82962; 87426; 96127; 99285; 73030; 81003

== ENCOUNTER 2023-04-27 19:06 | Emergency (ER) | payer MEDICARE, MEDICAID, SELFPAY ==
[2023-04-27 19:09] VITALS: BP 110/80; PULSE 84; RESP 15; TEMP 36.2; O2SAT 98
--- NOTE | 2023-04-27 19:15 | DI.RAD_ITS ---
Exam(s) XR SHOULDER RT COMPLETE 2+V EXAM: XR SHOULDER RT COMPLETE 2+V CLINICAL HISTORY: pain/injury. TECHNIQUE: 2D digital imaging was performed. Five views. COMPARISON: CR,XR XR SHOULDER RT COMPLETE 2+V from 04/25/2023 FINDINGS: BONES: No acute fracture is present. No bony destructive lesion is seen. JOINTS: No dislocation present. No significant degenerative changes. AC joint not widened. SOFT TISSUE: Normal. IMPRESSION: Unremarkable radiographs of the right shoulder. DATA REPOSITORY: RADIATION DOSE DELIVERED:
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
--- NOTE | 2023-04-27 19:29 | NUR.NOTE ---
PT denies any sexual activity and reports she is on control. PT states that she understands the potential risks of x-ray exposure, as explained by myself.
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
[2023-04-27] MEDS: Ibuprofen 800 MG TAB PO (20:35)
[2023-04-27 21:53] VITALS: BP 110/80; PULSE 84; RESP 15; TEMP 36.2; O2SAT 98
--- NOTE | 2023-05-01 07:25 | NUR.NOTE ---
Accessed Pt chart to obtain diagnosis for the [facility] document.
== END 2023-04-27 20:48 | disposition home or self-care (01) ==
LOC: ER 20:39
PROVIDERS: Emergency Provider Physician Assistant
DX: M25.511 Pain in right shoulder (principal); F17.200 Nicotine dependence, unspecified, uncomplicated
CPT/HCPCS: 99283; 73030

== ENCOUNTER 2023-08-02 23:50 | Emergency (ER) | payer MEDICARE, MEDICAID, SELFPAY ==
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
[2023-08-02 23:56] VITALS: BP 119/68; PULSE 90; RESP 18; TEMP 36.6; O2SAT 98
[2023-08-03] MEDS: Bacitracin 1 PACKET (00:44)
[2023-08-03 00:50] LABS: *AMPHETAMINES SCREEN URINE Negative (Negative); *BARBITURATES SCREEN URINE Negative (Negative); *BENZODIAZEPINES SCREEN URINE Negative (Negative); Cannabinoids THC Negative (Negative); Cocaine Screen,Urine Negative (Negative); METHADONE URINE SCREEN Negative (Negative); OPIATES URINE SCREEN Negative (Negative)
[2023-08-03 00:51] LABS: Tricyclic Antidepressants Negative (Negative)
[2023-08-03 01:27] LABS: Anion Gap 11.9 mmol/L (3-11); BUN 13 mg/dL (7-18); CO2 24.1 mmol/L (21.0-32.0); CREATININE 0.9 mg/dL (0.55-1.02); Calcium 8.8 mg/dL (8.5-10.1); Chloride 107 mmol/L (98-107); Estimated GFR 87.65 (mL/min/1.73m2); Glucose 85 mg/dL (74-106); Potassium 3.5 mmol/L (3.5-5.1); Sodium 143 mmol/L (136-145)
[2023-08-03 01:30] LABS: ETHANOL BLOOD < 3.0 mg/dL (<10)
[2023-08-03 01:47] LABS: Salicylate < 2.8 mg/dL (<2.8)
[2023-08-03 01:48] LABS: Acetaminophen < 2 ug/mL (10-30)
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
--- NOTE | 2023-08-03 08:15 | RT.EKG_ITS ---
APPROVED REPORT Exam: Resting ECG Reason for Exam: chest pain Patient Location: E HR:67 bpm ECG Measurements Heart Rate 67 AXIS WA 147 P 31 QRSd 89 QRS 27 QT 381 T 23 QTc 401 Conclusion Sinus rhythm...normal P axis, V-rate 60- 99 Low voltage, precordial leads...precordial leads <1.0mV sinus rhtyhm, normal axis, normal intervals, non sichemic
--- NOTE | 2023-08-03 10:50 | NUR.NOTE ---
Jimena Grove, Tubing Machine Tender for patient called asking for update. Per Dr. Oliveira, pt is waiting for [facility] re-evaluation. Nursing Note:
[2023-08-03 14:13] VITALS: BP 108/70; PULSE 73; RESP 16; TEMP 36.8; O2SAT 98
[2023-08-03] MEDS: Acetaminophen 325 MG TAB 650 MG PO (15:44)
[2023-08-03] MEDS: Ondansetron O.D.T. 4 MG TABEF SL (15:45)
--- NOTE | 2023-08-03 16:38 | ED.PROG_ITS ---
Date of service: 08/03/23 Time of Service: 16:38 Medical Decision Making Resting actively no acute distress. Was given Zofran earlier in the shift for some nausea. No vomiting. Assessed patients that do no active signs of infection. Patient accepted at [place]. Quality:[facility] Health Related Social Needs: No Data to Display Sign Out Sign Out Data: Sign Out Comment: Pending mental health eval completion by [facility] and [facility]. Last updated by Jan Ayala MD at 08/03/23 06:46 Discharge Plan Disposition Patient Disposition: Psychiatric Hospital/Unit Specific Psychiatric Facility: [facility] Medical-Psychiatric Unit Condition: Stable Discharge Details Chief Complaint: PsychEval Clinical Impression: Suicidal ideation Primary Care Provider: Karma Recinos ED Provider: Jeremiah Blankenship Home Meds and New Rx's Prescriptions: No Action Ajovy Autoinjector 225 mg/1.5 mL auto-injector 225 mg SUBCUT QMONTH cyanocobalamin (vitamin B-12) 1,000 mcg tablet 1,000 mcg PO QDAY clozapine 100 mg Tablet 100 mg PO QAM Rx Instructions: Total dose 125mg Qam, 50mg HS clozapine 25 mg Tablet 25 mg PO QAM Rx Instructions: 125mg Qam, 50mg HS clozapine 50 mg Tablet 125 mg PO HS Rx Instructions: 125mg Qam, 50mg HS trazodone 50 mg Tablet 75 mg PO HS prazosin 5 mg Capsule 12 mg PO HS oxcarbazepine [Trileptal] 300 mg Tablet 600 mg PO BID omeprazole 20 mg Capsule,Delayed Release(Dr/Ec) 20 mg PO DAILY epinephrine [EpiPen 2-Evans] 0.3 mg/0.3 mL Auto-Injector 0.3 mg IM DIRECTED PRN docusate sodium 100 mg Tablet 100 mg PO BID omeprazole 20 mg capsule,delayed release(DR/EC) 20 mg PO DAILY Qty: 4 0RF hydroxyzine HCl 25 mg tablet 100 mg PO BID PRN
== END 2023-08-03 17:51 ==
PROVIDERS: Emergency Medicine; Emergency Provider Emergency Medicine
DX: R45.851 Suicidal ideations (principal); S51.812A Laceration without foreign body of left forearm, initial encounter; F32.A Depression, unspecified; F91.3 Oppositional defiant disorder; F90.9 Attention-deficit hyperactivity disorder, unspecified type; F17.290 Nicotine dependence, other tobacco product, uncomplicated; Z79.899 Other long term (current) drug therapy; X78.8XXA Intentional self-harm by other sharp object, initial encounter
CPT/HCPCS: 00123; 80048; 80307; 81025; 82962; 93005; 99285; 80320; 80329; 93010

== ENCOUNTER 2023-09-04 09:59 | Emergency (ER) | payer MEDICARE, MEDICAID, SELFPAY ==
[2023-09-04 10:01] VITALS: BP 120/77; PULSE 78; RESP 18; TEMP 37.3; O2SAT 98
--- NOTE | 2023-09-04 10:15 | DI.US_ITS ---
Exam(s) US TRANSVAGINAL EXAM: US TRANSVAGINAL CLINICAL HISTORY: pelvic pain. ? torsion or cyst. TECHNIQUE: Transabdominal and transvaginal pelvic ultrasound was performed using standard protocol. COMPARISON: CT CT ABDOMEN PELVIS W from 12/17/2022 FINDINGS: UTERUS: Position: Anteverted. Size: 6.1 long by 4.0 AP by 5.2 transverse cm Endometrium: 0.5 cm. Normal for patient's menstrual status. The IUD is in good position. Myometrium: Unremarkable. Cervix: Nabothian cysts are present. OVARIES: Right: 2.7 x 1.8 x 2.3 cm Cyst or mass: No suspicious cystic or solid masses. Left: 2.8 x 1.1 x 1.0 cm Cyst or mass: No suspicious cystic or solid masses. DOPPLER: Color: Symmetric and uniform flow to both ovaries. CUL-DE-SAC: Free fluid: None. Other: None. IMPRESSION: 1. Normal-appearing uterus with endometrial stripe within normal limits. 2. Unremarkable bilateral ovaries. The ovaries are normal in size with normal blood flow. 3. IUD is in good position. DATA REPOSITORY:
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
[2023-09-04] MEDS: Acetaminophen 500 MG TAB 1000 MG PO (10:30)
[2023-09-04] MEDS: Ibuprofen 600 MG TAB PO (10:30)
[2023-09-04 10:43] LABS: Bilirubin Small (Negative); Blood Moderate (Negative); Clarity Sl Cloudy (Clear); Glucose Negative (Negative); Ketones Negative (Negative); Leukocyte Esterase Negative (Negative); Nitrite Negative (Negative); Specific Gravity >= 1.030 (1.005-1.025); Urobilinogen 0.2 mg/dL (Up to 0.2); pH 5.5 (5-8)
[2023-09-04 10:44] LABS: Abs Immature Grans 0.03 10^3/uL (0.0-0.06); Absolute Basophil Count 0.01 10^3/uL (0.0-0.2); Absolute Lymphocyte Count 1.78 10^3/uL (1.2-3.4); Absolute Neutrophil Count 5.41 10^3/uL (1.2-6.7); Basophils % 0.1 %; HCT 35.9 % (36.0-46.0); HGB 11.8 g/dL (11.2-15.7); Immature Grans % 0.4 %; MCH 29.1 pg (27.0-33.0); MCHC 32.9 % (32.0-36.0); MCV 88 fL (80-95); MPV 8.7 fL (8.0-11.0); Monocytes % 6.5 %; Platelet Count 237 10^3/uL (130-400); RBC 4.06 10^6/uL (3.93-5.22); RDW 13.3 % (11.7-14.6); RDW-SD 43.7 fL; WBC 7.73 10^3/uL (4.4-10.8)
[2023-09-04 10:50] LABS: *AMPHETAMINES SCREEN URINE Negative (Negative); *BARBITURATES SCREEN URINE Negative (Negative); *BENZODIAZEPINES SCREEN URINE Negative (Negative); Cannabinoids THC Negative (Negative); Cocaine Screen,Urine Negative (Negative); METHADONE URINE SCREEN Negative (Negative); OPIATES URINE SCREEN Negative (Negative)
[2023-09-04 10:53] LABS: Epithelial Cells Moderate HPF (Negative); WBC 0-2 HPF (0-5)
[2023-09-04 10:54] LABS: Bacteria Moderate HPF (Negative); C & S Indicated? No; Casts Negative LPF (Negative); Crystals Negative HPF (Negative); Mucus Negative (Negative); Tricyclic Antidepressants Negative (Negative)
[2023-09-04 11:11] LABS: ALT 19 U/L (14-59); AST 13 U/L (15-37); Albumin 3.7 g/dL (3.4-5.0); Alkaline Phosphatase 90 U/L (46-116); Anion Gap 9.1 mmol/L (3-11); BUN 16 mg/dL (7-18); Bilirubin, Total 0.5 mg/dL (0.2-1.0); CO2 25.9 mmol/L (21.0-32.0); CREATININE 0.9 mg/dL (0.55-1.02); Calcium 8.7 mg/dL (8.5-10.1); Chloride 109 mmol/L (98-107); Estimated GFR 87.65 (mL/min/1.73m2); Glucose 110 mg/dL (74-106); HCG Qual (Serum) Negative; Potassium 3.8 mmol/L (3.5-5.1); Sodium 144 mmol/L (136-145); TSH (W/Ref FT4) 1.83 uIU/mL (0.36-3.74)
[2023-09-04 11:12] LABS: ETHANOL BLOOD < 3.0 mg/dL (<10)
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
[2023-09-04] MEDS: Lidocaine 5% Patch 1 PATCH TP (12:30)
--- NOTE | 2023-09-04 14:28 | CMSP_ITS ---
Date of service: 09/04/23 Time of Service: 14:28 Care Management Safety Plan Status Status: Voluntary Reason for Wait Reason for Wait: Inpatient Admission Safety Plan Safety Plan: VOLUNTARY FOR INPATIENT PSYCHIATRIC STABILIZATION.? Patient is appropriate in all interactions since arriving at [facility]; Pt has demonstrated appropriate coping and communication skills, has articulated his or her needs and concerns and is fully engaged during staff interactions. Safety plan has been established with patient, and care team, to adhere to patient goals, identify restrictions based on behavioral status, address nutrition, and determine allowed personal belongings, tools for hygiene and personal care. Determine level of activity including ambulation, level of supervision, visitors, and determine privileges based on behaviors and level of engagement by pt. SAFETY PLAN: 1. Will remain on suicide precautions, in paper clothes 2. Will remain in room under direct supervision of one-on-one staff at all times provided by [employer]; [employer], FUND DEVELOPMENT MANAGER cloth bleaching supervisor. 3. May have paper cups, plates, finger foods as well as a cardboard spoon with which to eat meals. 4. Follow [facility] Management of the Admitted Behavioral Health Patient policy. 5. Comfort bath system, shower permitted with escort at RN discretion. 6. Personal belongings-soft items permitted at RN discretion. 7. Visitors- permitted per RN discretion. 8. Activities: soft cart items approved per RN discretion. 9.? Bathroom privileges with escort in the ED. 10. Phone: limited to cordless phone at RN discretion. Due to VOLUNTARY status, if patient wishes to leave [facility], staff will contact [facility] Crisis Screener ([phone]) and On-Call Tin Recovery Worker ([phone]) as soon as possible. In the event of elopement, notify [facility] Police ([phone]). Patient is currently voluntarily at [facility] and seeking inpatient admission when a bed becomes available. [facility] Frontline Marketing Engineer will continue seeking place ment. Please contact the Credit Resolution Representative Tin Recovery Worker ([phone]) and [facility] Marketing Engineer ([phone]) for any needed changes in the Safety Plan. Safety plan has been provided to interdepartmental care team.
--- NOTE | 2023-09-04 18:02 | NUR.NOTE ---
Nursing Note: Rafaela ([phone]) from [place] contacted primary RN on 09/03 discussing the plan of care for the pt. Rafaela states that since the duration of stay would not be sufficient due to the patient needing to appear in court in 2 days. MELISSA notified by pt's primary RN of Abdifatah's recommendation that patient be safety planned home. MELISSA Fany aware and currently formulating a plan. MELISSA denies needing to speak with Abdifatah.
--- NOTE | 2023-09-04 18:39 | ED.PROG_ITS ---
Date of service: 09/04/23 Time of Service: 17:00 Medical Decision Making Patient signed out to me by Dr. Cuadra MDM: Summary: Patient was noted to be bilaterally stated her depression and some suicidal thoughts. She was seen by the preparation room worker and was deemed that she could have a safety plan. She will be discharged with a safety plan home Data Review Analysis All the data on this patient was reviewed by me including laboratory and imaging studies as well as bedside studies performed by me Independent review of Studies Imaging Lab: As per previous provider Risk Stratification: Patient with depression who will be discharged with a safety plan Differential Diagnosis: 1. Depression 2. Anxiety 3. 4. 5. Consultants: We have consulted preparation room worker who instituted safety plan Shared disposition: Patient Disposition and she will be at her court date she feels less anxious and states that she is wanting hurt herself anymore Impression: Quality:SDOH Health Related Social Needs: No Data to Display Sign Out Sign Out Data: Sign Out Comment: history of borderline. suicidal ideation with plan to cut herself. Voluntary bedsearch. Last updated by Vladimir Cleary MD at 09/04/23 16:09 Discharge Plan Disposition Patient Disposition: Home Condition: Improving Discharge Details Clinical Impression: Depression Primary Care Provider: Karma Recinos ED Provider: Hardik Calhoun Home Meds and New Rx's Prescriptions: Continued Ajovy Autoinjector 225 mg/1.5 mL auto-injector 225 mg SUBCUT QMONTH cyanocobalamin (vitamin B-12) 1,000 mcg tablet 1,000 mcg PO QDAY clozapine 100 mg Tablet 100 mg PO BID Rx Instructions: Total dose 125mg twice daily (Per office of Davi Sheets 09/04/23) clozapine 25 mg Tablet 25 mg PO BID Rx Instructions: total dose is 125mg twice a day (per office of Davi Sheets 09/04/23) clozapine 50 mg Tablet 125 mg PO HS Rx Instructions: 125mg Qam, 50mg HS trazodone 50 mg Tablet 75 mg PO HS prazosin 5 mg Capsule 12 mg PO HS oxcarbazepine 600 mg tablet 600 mg PO BID Patient Comments: TAKE ONE TABLET BY MOUTH TWICE A DAY buspirone 5 mg tablet 5 mg PO QHS Patient Comments: TAKE ONE TABLET BY MOUTH EVERY EVENING AT 7PM prazosin 2 mg capsule 12 mg PO HS Patient Comments: dose clarified w/office of Davi Sheets 09/04/23 melatonin 3 mg tablet 3 mg PO HS PRN Patient Comments: TAKE ONE TABLET BY MOUTH EVERY EVENING NEEDED FOR INSOMNIA omeprazole 20 mg Capsule,Delayed Release(Dr/Ec) 20 mg PO DAILY epinephrine [EpiPen 2-Evans] 0.3 mg/0.3 mL Auto-Injector 0.3 mg IM DIRECTED PRN docusate sodium 100 mg Tablet 100 mg PO BID hydroxyzine HCl 25 mg tablet 100 mg PO BID PRN Discharge Instructions Instructions: Depression (ED) Discharge Data Discharge Physician: Hardik Calhoun
--- NOTE | 2023-09-05 07:44 | NUR.NOTE ---
[facility] called asking about this patient. Accessed chart to get the time of discharge, safety plan home. Nursing Note:
== END 2023-09-04 21:39 | disposition home or self-care (01) ==
PROVIDERS: Student in an Organized Health Care Education/Training Program; Emergency Provider Emergency Medicine Emergency Medical Services
DX: R45.851 Suicidal ideations (principal); R10.2 Pelvic and perineal pain; F32.A Depression, unspecified
CPT/HCPCS: 00123; 36415; 80053; 80307; 81025; 96127; 99285; 76830; 80159; 80320; 81003; 81015; 84443; 84703; 85025; 99284